=== PATIENT | female | born 1945 | race Caucasian/White ===

== ENCOUNTER 2023-02-15 12:26 | Outpatient (OUT) | payer MEDICARE, SELFPAY | END 2023-02-15 12:27 | disposition home or self-care (01) | LOC: PST 12:27 | PROVIDERS: Visit Provider Internal Medicine Cardiovascular Disease | DX: Z01.818 Encounter for other preprocedural examination (principal); I47.1 Supraventricular tachycardia ==

== ENCOUNTER 2023-02-19 11:39 | Day surgery (SDC) | payer MEDICARE, SELFPAY ==
[2023-02-19 11:51] VITALS: BP 120/79; PULSE 60; RESP 18; TEMP 36.6; O2SAT 93
[2023-02-19] MEDS: AMOXICILLIN 500 MG CAPSULE 1000 MG PO (11:57)
--- NOTE | 2023-02-19 13:13 | P.ON_ITS ---
Date of procedure: 02/19/23 Pre-op diagnosis: AF Post-op diagnosis: same as pre-op Procedure: LOOP?IMPLANT PROCEDURE NOTE DATE OF PROCEDURE: 02/19/2023 PERFORMING PHYSICIAN: Dr. Farshad Coyle INDICATIONS FOR PROCEDURE: 1. AF surveillance CONSENT: Patient LOCATION: EP Lab PROCEDURAL SEDATION: None FLUOROSCOPY TIME: 0min PREPARATION: Preoperative antibiotics was administered. PROCEDURES PERFORMED: 1.?LOOP?implant PROCEDURE NOTE: Patient was brought to the EP lab in the post absorptive state. A procedural pause was performed verifying the patient, the procedure. Sterile prep and drape were performed over the left precordium and anesthesia with 1% lidocaine was followed by a small incision was made in the 3rd intercostal space near the sternum on the left using the [employer] tool. The?loop?recorder was then injected subcutaneously and noted to have good sensing parameters. Technical details of the device as noted below. The skin was then closed with 3- 0 absorbable monofilament suture and glue applied to hold the edges together. Tegaderm was applied to cover the wound. The patient appeared to tolerate the procedure well and was returned to the room in stable condition. No complications were immediately observed. LOOP?details: Device Model: M301 Lux-Dx Serial#: [id number] Sensing is 0.19mV. IMPRESSION: Successful placement of?LOOP?implant with excellent sensing parameters. RECOMMENDATIONS: 1. Occlusive dressing to be changed after 7 days. 2. Do not wet the incision. Farshad Coyle MD Cardiac Electrophysiology Anesthesia: Local Surgeon: Farshad Coyle Estimated blood loss (mL): 5 Pathology: none sent Condition: stable Disposition: same day
[2023-02-19 13:14] VITALS: BP 127/58; PULSE 86; RESP 20; O2SAT 97
[2023-02-19 13:15] VITALS: RESP 20
[2023-02-19 13:23] VITALS: BP 123/57; PULSE 93; O2SAT 95
== END 2023-02-19 13:40 | disposition home or self-care (01) ==
PROVIDERS: PCP Family Medicine; Visit Provider Internal Medicine Cardiovascular Disease
PROC: (CPT 33285; principal; 2023-02-19 12:30)
DX: I48.91 Unspecified atrial fibrillation (principal); J43.9 Emphysema, unspecified; Z99.81 Dependence on supplemental oxygen; F17.210 Nicotine dependence, cigarettes, uncomplicated; Z79.899 Other long term (current) drug therapy
CPT/HCPCS: 33285; C1764

== ENCOUNTER 2023-05-20 15:36 | Observation (INO) | payer MEDICARE, SELFPAY ==
[2023-05-20] VITALS (34 sets, daily range): BP systolic 84–102; BP diastolic 45–80; PULSE 96–121; RESP 11–32; TEMP 37.1–38.1; O2SAT 91–98; BMI 22.7; BMI 23.3
--- NOTE | 2023-05-20 15:53 | ECG_ITS ---
The [facility] Test Date: 2023-05-20 Pat Name: TOM MCDANIELS Department: Room: - Gender: Female It Support Manager: : 1945 Requested By: MANUEL GLYNN Order Number: [id number] Reading MD: RADHA BROWN Measurements Intervals [place] Rate: 109 P: 77 MT: 94 QRS: 80 QRSD: 82 T: 67 QT: 292 QTc: 356 Interpretive Statements 1120 Sinus tachycardia 2210 Short MT interval 8305 Short QTc interval 9150 abnormal ECG No previous ECG available for comparison Electronically Signed On 05-21-2023 7:11:58 EST by RADHA BROWN
--- NOTE | 2023-05-20 15:53 | XR_ITS ---
The [address] [address] Patient Name: TOM MCDANIELS MRN: [id number] date: 1945 Sex: F Assigned Patient Location: ER Current Patient Location: ER Accession/Order Number: [id number] Exam Date: 05/20/2023 16:30 Report Date: 05/20/2023 17:00 At the request of: MARQUEZ MONTILLA Procedure: XR chest 1V EXAMINATION: XR chest 1V HISTORY: Shortness of breath COMPARISON: None. TECHNIQUE: Portable chest FINDINGS: The lung parenchyma is free of consolidation or infiltrate. No pneumothorax or pleural effusion. The cardiac, mediastinal and hilar contours are normal. The visualized osseous structures exhibit no gross abnormality. XR/XR chest 1V IMPRESSION: No acute cardiopulmonary abnormality. Electronically authenticated by: TEENA MCKEE Date: 05/20/2023 17:00
--- NOTE | 2023-05-20 16:12 | ED.SOB1 ---
HPI - SOB/Dyspnea General Chief Complaint: Shortness of Breath/Dyspnea Stated Complaint: pneumonia Time Seen by Provider: 05/20/23 15:53 Source: patient Mode of arrival: walk-in Limitations: no limitations History of Present Illness HPI Narrative: patient is a 77-year-old female who presents to the emergency department for cough, body aches, fevers, shortness of breath over the last 4-5 days. She has a history of chronic obstructive pulmonary disease. She states she has had pneumonia frequently in the past. She has had no hemoptysis, chest pain. She states she does have some soreness in the ribs with coughing. She has been eating and drinking fairly well. No vomiting or diarrhea. She denies any peripheral edema or sick contacts in the home. She has not been on any medications for her symptoms. she has a regular smoker. Related Data Home Medications Medication Instructions Recorded Confirmed albuterol 90 mcg/actuation aerosol 90 mcg inhalation .EVERY 4 HOURS 02/15/23 05/20/23 inhaler PRN SOB albuterol sulfate 90 mcg/actuation 2 puff inhalation Q4H PRN 05/20/23 05/20/23 aerosol inhaler shortness of breath or wheezing metoprolol succinate 25 mg 25 mg PO QAM 05/20/23 05/20/23 tablet,extended release 24 hr Allergies Allergy/AdvReac Type Severity Reaction Status Date / Time No Known Drug Allergies Allergy Unverified 02/15/23 11:38 Review of Systems ROS Constitutional Reports: fever and chills Ears, nose, mouth, and throat Reports: nasal congestion; Denies: throat pain Cardiovascular Denies: chest pain Respiratory Reports: shortness of breath and cough Gastrointestinal Denies: nausea or vomiting Musculoskeletal Denies: back pain Integumentary/Breast Denies: rash Neurological Denies: headache Hematologic/Lymphatic Denies: easy bruising [facility] Medical History (Updated 05/20/23 @ 18:36 by GERMÁN Crow) Asthma ?J45.909 - Unspecified asthma, uncomplicated (ICD-10) Cataracts, bilateral ?H26.9 - Unspecified cataract (ICD-10) COPD (chronic obstructive pulmonary disease) ?J44.9 - Chronic obstructive pulmonary disease, unspecified (ICD-10) O2 dependent ?Z99.81 - Dependence on supplemental oxygen (ICD-10) Pleurisy ?R09.1 - Pleurisy (ICD-10) Tachycardia ?R00.0 - Tachycardia, unspecified (ICD-10) Surgical History (Updated 02/15/23 @ 11:34 by Jennifer Laguerre RN) History of tonsillectomy ?Z90.89 - Acquired absence of other organs (ICD-10) History of tubal ligation ?Z98.51 - Tubal ligation status (ICD-10) Family History (Updated 02/15/23 @ 11:35 by Jennifer Laguerre RN) Other Family history of cancer Heart disease Social History Within the past year, how often did you have a drink containing alcohol: monthly or less Within the past year, how many standard drinks containing alcohol did you have on a typical day: 1 or 2 Total score: 0 Score interpretation: A score less than 3 is consistent with normal alcohol consumption. Smoking status: Heavy tobacco smoker Non-prescribed substance use: denies use Previous occupational history: RETIRED Known occupational exposures/hazards: No Highest level of school completed/degree received: high school graduate Exam Narrative Exam Narrative: Gen.: Awake, alert, in no distress Head: Normocephalic, atraumatic ENT: Moist mucous membranes Respiratory: No respiratory distress, lungs diminished Cardio: Regular rate and rhythm Gastrointestinal: Abdomen is soft, nondistended and nontender to palpation Extremities: Moves extremities equally Psych: Normal mood and affect Neuro: No focal neuro deficit Skin: Warm, dry, intact Constitutional Vital Signs, click to edit/add: Last Vital Signs Temp 100.5 F H 05/20/23 15:46 Pulse 102 H 05/20/23 17:40 Resp 20 05/20/23 17:40 BP 96/57 05/20/23 17:30 Pulse Ox 91 L 05/20/23 17:45 O2 Del Method Room Air 05/20/23 17:45 Course Vital Signs Vital signs: Vital Signs Temperature 100.5 F H 05/20/23 15:46 Pulse Rate 121 H 05/20/23 15:46 Respiratory Rate 24 05/20/23 15:46 Blood Pressure 95/64 05/20/23 15:46 Pulse Oximetry 94 L 05/20/23 15:46 Oxygen Delivery Method Room Air 05/20/23 15:46 Temperature 100.5 F H 05/20/23 15:46 Pulse Rate 102 H 05/20/23 17:40 Respiratory Rate 20 05/20/23 17:40 Blood Pressure 96/57 05/20/23 17:30 Pulse Oximetry 91 L 05/20/23 17:45 Oxygen Delivery Method Room Air 05/20/23 17:45 MDM - SOB/Dyspnea MDM Narrative Medical decision making narrative: patient is borderline hypoxic in the Emergency Room, placed on oxygen by nasal cannula and given an albuterol breathing treatment.Tylenol given for fever and IV fluids were started. Tachycardia has improved. Chest x-ray shows no evidence of acute cardiopulmonary changes, white blood cell count, lactic acid, Covid test and influenza test are all negative. Urine specimen is unremarkable.patient will be admitted to ICU for close monitoring. A 2nd liter of fluid, azithromycin and Rocephin were given. Blood cultures are pending. Case discussed with the hospitaliist. Medical Records Attestation: I reviewed the patient's medical records. Lab Data Attestation: I reviewed the patient's lab results. Labs: Lab Results 05/20/23 05/20/23 05/20/23 Range/Units 16:15 16:22 16:35 WBC 8.5 (4.0-11.0) 10^3/uL RBC 4.61 (4.20-5.40) 10^6/uL Hgb 14.0 (12.0-16.0) g/dL Hct 45.1 (36.0-48.0) % MCV 97.8 (81.0-99.0) fL MCH 30.4 (26.7-34.0) pg MCHC 31.0 (29.9-35.2) g/dL RDW 13.5 (11.0-15.0) % Plt Count 218 (150-450) 10^3/uL MPV 10.9 (9.5-13.5) fL Neut % (Auto) 76.9 H (43.0-75.0) % Lymph % (Auto) 11.1 L (20.5-60.0) % [place] % (Auto) 10.9 (1.7-12.0) % Eos % (Auto) 0.1 L (0.9-7.0) % Baso % (Auto) 0.4 (0.2-2.0) % Neut # (Auto) 6.5 (1.4-6.5) 10^3/uL Lymph # (Auto) 0.9 L (1.2-3.8) 10^3/uL [place] # (Auto) 0.9 H (0.3-0.8) 10^3/uL Eos # (Auto) 0.0 (0.0-0.7) 10^3/uL Baso # (Auto) 0.0 (0.0-0.1) 10^3/uL Abs Immat Gran (auto) 0.05 H (0.00-0.03) 10^3/uL Imm/Tot Granulo (auto) 0.6 H (0.0-0.5) % PT 10.3 (9.0-11.6) sec INR 0.97 APTT 24.4 (22.3-36.2) sec VBG pH 7.404 (7.330-7.430) VBG pCO2 52.4 H (40.0-52.0) mmHg Sodium 140 (136-145) mmol/L Potassium 4.2 (3.5-5.1) mmol/L Chloride 102 (98-107) mmol/L Carbon Dioxide 33.3 H (21.0-32.0) mmol/L Anion Gap 8.9 BUN 14.0 (7.0-18.0) mg/dL Creatinine 1.03 H (0.55-1.02) mg/dL Est GFR ( Amer) >60 (>=60) Est GFR (Non-Af Amer) 52 L (>=60) BUN/Creatinine Ratio 13.6 Glucose 88 (74-106) mg/dL Lactate 1.1 (0.4-2.0) mmol/L Calcium 9.4 (8.5-10.1) mg/dL Total Bilirubin 0.3 (0.2-1.0) mg/dL AST 32 (15-37) U/L ALT 49 (14-59) U/L Alkaline Phosphatase 105 (46-116) U/L Troponin I High Sens 9.2 (4.0-51.3) pg/mL NT-Pro-B Natriuret Pep 314.0 (<=1800.0) pg/mL Total Protein 8.1 (6.4-8.2) g/dL Albumin 3.3 L (3.4-5.0) g/dL Globulin 4.8 g/dL Albumin/Globulin Ratio 0.7 Procalcitonin <0.05 (0.00-0.50) ng/mL Urine Color Yellow (YELLOW) Urine Clarity Clear (CLEAR) Urine pH 5.5 (5.0-9.0) Ur Specific [place] >=1.030 A (1.005-1.025) Urine Protein Trace (NEG/TRACE) mg/dL Urine Glucose (UA) Negative (NEGATIVE) mg/dL Urine Ketones Negative (NEGATIVE) mg/dL Urine Occult Blood Trace-i (NEGATIVE) Urine Nitrite Negative (NEGATIVE) Urine Bilirubin Negative (NEGATIVE) Urine Urobilinogen 0.2 (0.2-1.0) EU/dL Ur Leukocyte Esterase Negative (NEGATIVE) Urine RBC 0-2 (0-2) #/HPF Urine WBC None seen (NONE SEEN) #/HPF Ur Squamous Epith Cells Rare (NONE/RARE) #/LPF Urine Crystals Seen A (None Seen) #/HPF Calcium Oxalate Crystal Few Urine Bacteria Trace A (NONE SEEN) #/HPF Urine Casts None seen (NONE SEEN) #/LPF Urine Mucus None seen (NONE SEEN) Ur Culture Indicated? No SARS-CoV-2 (PCR) Negative (NEGATIVE) Influenza Type A Ag Negative Influenza Type B Ag Negative Imaging Data Chest x-ray: Attestation: I have reviewed the pertinent imaging results. Radiologist's impression: Procedure: XR chest 1V EXAMINATION: XR chest 1V HISTORY: Shortness of breath COMPARISON: None. TECHNIQUE: Portable chest FINDINGS: The lung parenchyma is free of consolidation or infiltrate. No pneumothorax or pleural effusion. The cardiac, mediastinal and hilar contours are normal. The visualized osseous structures exhibit no gross abnormality. IMPRESSION: No acute cardiopulmonary abnormality. Electronically authenticated by: TEENA MCKEE Date: 05/20/2023 17:00 ECG Data Attestation: I personally reviewed and interpreted this ECG as follows: (sinus tachycardia at a rate of 109, no acute ST elevation or ectopy. EKG reviewed by attending physician) Discharge Plan Discharge Chief Complaint: Shortness of Breath/Dyspnea Patient Disposition: Admitted As Inpatient Time of Disposition Decision: 18:36 Prescriptions / Home Meds: No Action albuterol 90 mcg/actuation aerosol 90 mcg inhalation .EVERY 4 HOURS PRN (Reason: SOB) Hold Instructions: no longer available albuterol sulfate 90 mcg/actuation HFA aerosol inhaler 2 puff INHALATION Q4H PRN (Reason: shortness of breath or wheezing) metoprolol succinate 25 mg tablet extended release 24 hr 25 mg PO QAM Stand Alone Forms: Portal Instructions Referrals: Suzanne Cabral MD [Primary Care Provider] - 1 week
[2023-05-20 16:28] LABS: PCO2 VBG 52.4 mmHg (40.0-52.0); pH VBG 7.404 (7.330-7.430)
[2023-05-20 16:31] LABS: Basophils Percent Auto 0.4 % (0.2-2.0); Eosinophils Percent Auto 0.1 % (0.9-7.0); Hematocrit 45.1 % (36.0-48.0); Immature Granulocytes Abs Auto 0.05 10^3/uL (0.00-0.03); Immature Granulocytes Pct Auto 0.6 % (0.0-0.5); Lymphocytes Absolute Auto 0.9 10^3/uL (1.2-3.8); Lymphocytes Percent Auto 11.1 % (20.5-60.0); Mean Corpuscular Hemoglobin 30.4 pg (26.7-34.0); Mean Corpuscular Volume 97.8 fL (81.0-99.0); Mean Platelet Volume 10.9 fL (9.5-13.5); Monocytes Absolute Auto 0.9 10^3/uL (0.3-0.8); Monocytes Percent Auto 10.9 % (1.7-12.0); Neutrophils Absolute Auto 6.5 10^3/uL (1.4-6.5); Neutrophils Percent Auto 76.9 % (43.0-75.0); Platelet Count 218 10^3/uL (150-450); Red Blood Count 4.61 10^6/uL (4.20-5.40); Red Cell Distribution Width 13.5 % (11.0-15.0); White Blood Count 8.5 10^3/uL (4.0-11.0)
[2023-05-20] MEDS: ACETAMINOPHEN 325 MG TABLET 650 MG PO (16:33)
[2023-05-20] MEDS: 0.9 % SODIUM CHLORIDE 1,000 ML 999 ML IV (16:34)
[2023-05-20 16:43] LABS: SARS-CoV-2 Ag NEGATIVE (NEGATIVE)
--- NOTE | 2023-05-20 16:43 | PC.NURSE ---
pt reports wearing O2 at night, pulse ox on pt and will monitor
[2023-05-20 16:45] LABS: INR 0.97; Partial Thromboplastin Time 24.4 sec (22.3-36.2); Prothrombin Time 10.3 sec (9.0-11.6)
[2023-05-20 16:48] LABS: Lactate/Lactic Acid 1.1 mmol/L (0.4-2.0)
[2023-05-20 16:54] LABS: Alanine Aminotransferase 49 U/L (14-59); Albumin Globulin Ratio 0.7; Albumin Level 3.3 g/dL (3.4-5.0); Alkaline Phosphatase 105 U/L (46-116); Anion Gap 8.9; Aspartate Amino Transferase 32 U/L (15-37); BUN Creatinine Ratio 13.6; Bilirubin Total 0.3 mg/dL (0.2-1.0); Calcium 9.4 mg/dL (8.5-10.1); Carbon Dioxide 33.3 mmol/L (21.0-32.0); Chloride 102 mmol/L (98-107); Estimated GFR (African America >60 (>=60); Estimated GFR (Non-African Ame 52 (>=60); Globulin 4.8 g/dL; Glucose 88 mg/dL (74-106); Potassium 4.2 mmol/L (3.5-5.1); Sodium 140 mmol/L (136-145); Total Protein 8.1 g/dL (6.4-8.2); Troponin I High Sensitivity 9.2 pg/mL (4.0-51.3)
[2023-05-20 17:00] LABS: PROCALCITONIN <0.05 ng/mL (0.00-0.50)
[2023-05-20 17:08] LABS: Bilirubin Urine NEGATIVE (NEGATIVE); Blood Urine TRACE-I (NEGATIVE); Clarity Urine CLEAR (CLEAR); Color Urine YELLOW (YELLOW); Glucose Urine UA NEGATIVE (NEGATIVE); Ketones Urine NEGATIVE (NEGATIVE); Leukocyte Esterase Urine NEGATIVE (NEGATIVE); Nitrite Urine NEGATIVE (NEGATIVE); Protein Urine TRACE mg/dL (NEG/TRACE); Specific Gravity Urine >=1.030 (1.005-1.025); Urobilinogen Urine 0.2 EU/dL (0.2-1.0); pH Urine 5.5 (5.0-9.0)
[2023-05-20 17:16] LABS: Urine Microscopic Indicated YES
[2023-05-20 17:35] LABS: Influenza Virus A Antigen Negative; Influenza Virus B Antigen Negative; Internal Control Within Normal Limits
[2023-05-20] MEDS: ALBUTEROL SULFATE 2.5 MG/3 ML VIAL NEB IH (17:44)
[2023-05-20 17:51] LABS: Bacteria Urine TRACE #/HPF (NONE SEEN); Calcium Oxalate Crystals Urine FEW; Cast Seen? NONE SEEN #/LPF (NONE SEEN); Crystals Seen? Seen #/HPF (None Seen); Mucus Urine NONE SEEN (NONE SEEN); RBC Urine 0-2 #/HPF (0-2); Squamous Epithelial Cell Urine RARE #/LPF (NONE/RARE); Urine Culture Indicated NO; WBC Urine NONE SEEN #/HPF (NONE SEEN)
[2023-05-20] MEDS: 0.9 % SODIUM CHLORIDE 1,000 ML 1000 ML IV (18:15)
[2023-05-20] MEDS: CEFTRIAXONE 1,000 MG in 0.9 % SODIUM CHLORIDE 50 ML 100 MG IV (18:26)
[2023-05-20] MEDS: AZITHROMYCIN 500 MG in 0.9 % SODIUM CHLORIDE 250 ML 250 MG IV (19:02)
--- NOTE | 2023-05-20 21:21 | P.PN_ITS ---
Progress Note: Subjective Subjective Interval history: Chief Complaint:: Fever, shortness of breath, cough with purulent sputum History of Present Illness:: This is a 77 years old female with known history of COPD who presents with above complaints. Patient stating that she did not feel well for a few days. She denies any sick/ill contacts. Evaluation in the emergency room revealed unremarkable chest x-ray, auscultatory wheezing. Patient did require oxygen initially. Rapid test for COVID-19, influenza, RSV has been negative. Patient blood pressure has been low on presentation to emergency room, but she responded to IV fluid resuscitation. Admitted for further evaluation and treatment. Currently feeling better after the initial treatment in the emergency room Exam Narrative Exam Narrative: ROS: 1.General: no fever, chills, not in distress 2.HEENT: no YOUNGER, no blurry vision, no swallow problems, no nasal congestion, no sore throat 3.Pulmonary: See above 4.CVS: no CP, no palpitations, no WINKELR, no SOB, no intermittent claudication 5.GI: no nausea, vomiting or diarrhea, no abdominal pain, no constipation, no hematemesis or hematochezia 6.: no renal colic, no hematuria, urinary frequency or urgency 7.Extremities: no edema 8.Neurological: no dizziness, vertigo, double or blurry vision, no no focal weakness, no paresthesia, no swallow or speech problems 9.Musculosceletal: no joint pains, no joint swelling, no back pain 10.Dermatological: no skin rashes, no lesions, no pruritus 11.Hematological: no bleeding, no hx/o clots 12.Endocrinological: no heat/cold intolerance, no hx/o diabetes 13.Psychiatric: no suicidal or homicidal thoughts Physical Exam: Not in distress, pleasant, lucid, cooperative, Head - atraumatic, eyes - pupils equal, round, reactive to light, extra ocular movement intact, MMM Neck - supple, thyroid not enlarged, LN not palpated Lungs -coarse resting bilaterally, wheezing CVS - heart sounds S1, S2, no additional murmurs gallop, regular rate and rhythm Gastrointestinal?abdomen is soft, non-tender, non-distended, no organomegaly, positive bowel sounds Extremities no clubbing, cyanosis or edema Neurological?cranial nerve II?XII grossly intact, no meningeal signs, no cerebellar signs, no sensory deficit Musculoskeletal - joints, no effusions, ROM preserved Dermatological - the skin dry, warm, no rashes Psychiatric?patient is AAO X3, patient has normal affect Constitutional Vital Signs, click to edit/add: Last Vital Signs Temp 98.9 F 05/20/23 19:50 Pulse 112 H 05/20/23 19:58 Resp 24 05/20/23 19:58 BP 94/61 05/20/23 19:50 Pulse Ox 96 05/20/23 19:58 O2 Del Method Nasal Cannula 05/20/23 19:58 O2 Flow Rate 2 05/20/23 19:58 Progress Note: Objective Labs Labs: Short CBC 05/20/23 Range/Units 16:15 WBC 8.5 (4.0-11.0) 10^3/uL Hgb 14.0 (12.0-16.0) g/dL Hct 45.1 (36.0-48.0) % Plt Count 218 (150-450) 10^3/uL BMP 05/20/23 16:15 Sodium 140 Potassium 4.2 Chloride 102 Carbon Dioxide 33.3 H BUN 14.0 Creatinine 1.03 H Glucose 88 Calcium 9.4 Liver Function 05/20/23 Range/Units 16:15 Total Bilirubin 0.3 (0.2-1.0) mg/dL AST 32 (15-37) U/L ALT 49 (14-59) U/L Alkaline Phosphatase 105 (46-116) U/L Albumin 3.3 L (3.4-5.0) g/dL Urine 05/20/23 Range/Units 16:35 Urine Color Yellow (YELLOW) Urine Clarity Clear (CLEAR) Urine pH 5.5 (5.0-9.0) Ur Specific [place] >=1.030 A (1.005-1.025) Urine Protein Trace (NEG/TRACE) mg/dL Urine Glucose (UA) Negative (NEGATIVE) mg/dL Progress Note: A&P Assessment and Plan (1) COPD exacerbation: Assessment and Plan: COPD exacerbation with respiratory failure combined hypoxemic and hypercapnia - admit to intensive care unit providing low blood pressure initially - O2 supplementation - RT assessment - inhaled and systemic steroids - inhaled bronchodilators - will order sputum Cx and Gramm stain - empiric, broad spectrum ABxs - probiotics while on ABXs - F/U Cxs - tailor ABxs accordingly - if no improvement - consider and ABG evaluation and consultation with Hazmat Technician (2) SIRS (systemic inflammatory response syndrome): Assessment and Plan: ? Most probably related to above. Initial work-up has been negative for any source of infection (3) Shortness of breath: Assessment and Plan: Improving with the breathing treatment and oxygen Plan END: As the provider for the telehealth service, I attest that I introduced myself to the patient, provided my credentials, disclosed by location and determined that based on a review of the patient's chart and discussion with members of the patient's treatment team, telemedicine via real-time, 2 way, and interactive audio and video platform is an appropriate and effective means of providing the service. ?The patient and I mutually agree this visit is appropriate for telemedicine. ?[place] ?The encounter took approximately 35 minutes. ?The nurse was present during the entire time and I was able to move the stethoscope in appropriate directions. ?The patient was evaluated at the Hospital ? Portions of this note may be dictated using [employer] voice recognition software. Variances in spelling and vocabulary are possible and unintentional. Not all errors may be caught and/or corrected. Please notify the author if any discrepancies are noted and/or if the meaning of any statement is unclear.? ? Patient verbally consented for treatment via video visit with patient currently located at the [facility] and provider located in [place]. Telemedicine Attestation Telemedicine Attestation I conducted this encounter from [[place]] via secure live, [id number] video conference with the patient, located at [facility] with [COPD exacerbation]. Prior to the interview, the risks and benefits of telemedicine were discussed with the patient and verbal consent was obtained.
[2023-05-20] MEDS: MONTELUKAST SODIUM 10 MG TABLET PO (22:15)
[2023-05-20] MEDS: METHYLPREDNISOLONE SOD SUCC PF 40 MG/ML VIAL IVP (22:15)
[2023-05-20] MEDS: 0.9 % SODIUM CHLORIDE 1,000 ML 100 ML IV (22:15)
[2023-05-20] MEDS: BUDESONIDE 0.5 MG/2 ML AMPULE NEB IH (22:49)
[2023-05-20] MEDS: IPRATROPIUM/ALBUTEROL SULFATE 3 ML AMPUL.NEB IH (22:50)
[2023-05-21] VITALS (74 sets, daily range): BP systolic 99–106; BP diastolic 58–59; PULSE 81–117; RESP 11–34; TEMP 36.3–36.6; O2SAT 85–97
[2023-05-21] MEDS: IPRATROPIUM/ALBUTEROL SULFATE 3 ML AMPUL.NEB IH (04:01)
[2023-05-21 05:45] LABS: Basophils Percent Auto 0.3 % (0.2-2.0); Hematocrit 35.3 % (36.0-48.0); Hemoglobin 10.8 g/dL (12.0-16.0); Immature Granulocytes Abs Auto 0.05 10^3/uL (0.00-0.03); Immature Granulocytes Pct Auto 0.8 % (0.0-0.5); Lymphocytes Absolute Auto 0.3 10^3/uL (1.2-3.8); Lymphocytes Percent Auto 4.7 % (20.5-60.0); Mean Corpuscular HGB Conc 30.6 g/dL (29.9-35.2); Mean Corpuscular Hemoglobin 30.3 pg (26.7-34.0); Mean Corpuscular Volume 99.2 fL (81.0-99.0); Monocytes Absolute Auto 0.3 10^3/uL (0.3-0.8); Monocytes Percent Auto 4.7 % (1.7-12.0); Neutrophils Absolute Auto 5.9 10^3/uL (1.4-6.5); Neutrophils Percent Auto 89.5 % (43.0-75.0); Platelet Count 164 10^3/uL (150-450); Red Blood Count 3.56 10^6/uL (4.20-5.40); Red Cell Distribution Width 13.6 % (11.0-15.0); White Blood Count 6.6 10^3/uL (4.0-11.0)
[2023-05-21] MEDS: METHYLPREDNISOLONE SOD SUCC PF 40 MG/ML VIAL IVP (06:13)
[2023-05-21 06:14] LABS: Alanine Aminotransferase 36 U/L (14-59); Albumin Globulin Ratio 0.6; Albumin Level 2.4 g/dL (3.4-5.0); Alkaline Phosphatase 79 U/L (46-116); Anion Gap 10.3; Aspartate Amino Transferase 25 U/L (15-37); BUN Creatinine Ratio 9.4; Bilirubin Total 0.1 mg/dL (0.2-1.0); Calcium 8.6 mg/dL (8.5-10.1); Carbon Dioxide 27.7 mmol/L (21.0-32.0); Chloride 108 mmol/L (98-107); Estimated GFR (African America 55 (>=60); Estimated GFR (Non-African Ame 45 (>=60); Globulin 3.8 g/dL; Glucose 251 mg/dL (74-106); Sodium 142 mmol/L (136-145); Total Protein 6.2 g/dL (6.4-8.2)
[2023-05-21] MEDS: METOPROLOL SUCCINATE 25 MG TAB.ER.24H PO (08:02)
--- NOTE | 2023-05-21 08:29 | PM.HP ---
H&P: HPI History of Present Illness Chief complaint: pneumonia Narrative: patient is a 77-year-old female with past medical history of chronic obstructive pulmonary disease, tobacco abuse, paroxysmal atrial fibrillation with loop recorder who presented to the Emergency Room yesterday evening with a five day history of body aches, dry cough, fevers, and increased shortness of breath. She denies any sick contacts and states that she has her albuterol that she's been using as needed. She follows closely with her primary care physician and also has a parimutuel clerk that she sees occasionally. At the time of exam this morning patient has no complaints and states that she feels much better from treatment provided in the emergency department. She has received some breathing treatments and IV fluids steroids and antibiotics. She notes improved shortness of breath no fevers overnight, no nausea vomiting or diarrhea. Patient wishes to go home today. Review of Systems ROS Narrative ROS: a complete review of systems were reviewed with patient and are positive as below or listed in History of Chief Complaint. General: no fever, chills, night sweats Head: no headache, trauma, visual changes, nausea or vomiting Skin: no reported rashes, itching or sores Eyes: no blurriness of vision Ears: no reported hearing loss, vertigo, earache, or tinnitus Throat: no sore throat, hoarseness, swelling of neck, or tongue pain Heart: no chest pain Lungs: some shortness of breath and dry cough GI: no diarrhea or vomiting/nausea Urinary: no urinary urgency, frequency or pain Neuro: no numbness or tingling HEM: no bleeding issues or bruising ENDO: no thyroid problems Psych: no anxiety or depression [facility] Medical History (Updated 05/20/23 @ 18:36 by GERMÁN Crow) Asthma ?J45.909 - Unspecified asthma, uncomplicated (ICD-10) Cataracts, bilateral ?H26.9 - Unspecified cataract (ICD-10) COPD (chronic obstructive pulmonary disease) ?J44.9 - Chronic obstructive pulmonary disease, unspecified (ICD-10) O2 dependent ?Z99.81 - Dependence on supplemental oxygen (ICD-10) Pleurisy ?R09.1 - Pleurisy (ICD-10) Tachycardia ?R00.0 - Tachycardia, unspecified (ICD-10) Surgical History History of tonsillectomy ?Z90.89 - Acquired absence of other organs (ICD-10) History of tubal ligation ?Z98.51 - Tubal ligation status (ICD-10) Family History Other Family history of cancer Heart disease Social History Within the past year, how often did you have a drink containing alcohol: monthly or less Within the past year, how many standard drinks containing alcohol did you have on a typical day: 1 or 2 Total score: 0 Score interpretation: A score less than 3 is consistent with normal alcohol consumption. Smoking status: Heavy tobacco smoker Non-prescribed substance use: denies use Previous occupational history: RETIRED Known occupational exposures/hazards: No Highest level of school completed/degree received: high school graduate Meds Home Medications and Allergies Home Medications Medication Instructions Recorded Confirmed Type albuterol 90 mcg/actuation aerosol 90 mcg inhalation .EVERY 4 HOURS 02/15/23 05/20/23 History inhaler PRN SOB albuterol sulfate 90 mcg/actuation 2 puff inhalation Q4H PRN 05/20/23 05/20/23 History aerosol inhaler shortness of breath or wheezing metoprolol succinate 25 mg 25 mg PO QAM 05/20/23 05/20/23 History tablet,extended release 24 hr Allergies Allergy/AdvReac Type Severity Reaction Status Date / Time No Known Drug Allergies Allergy Unverified 02/15/23 11:38 Exam Narrative Exam Narrative: General: Patient is alert, and oriented to person, place and time with normal affect, proper hygiene Skin: no visible rashes, or ulcers Head: atraumatic, acephalic Eyes: PERRLA, no nystagmus present, conjunctiva clear, no scleral icterus Ears: normal gross auditory acuity Nose: symmetric, no discharge, no maxillary or frontal sinus tenderness Mouth/Throat: no erythema, exudate, or tonsillar enlargement, normal dentition Neck: no masses palpated, normal thyroid, no JVD or audible carotid bruits Heart: Normal rate and rhythm, no murmurs/rubs/gallops Lungs: no audible wheezes, crackles and slightly diminished breath sounds in base of lung barnes Abdomen: Normal audible bowel sounds, no distension, No palpable masses, no organomegaly, no rebound/guarding/ or rigidity Musculoskeletal: no swelling bilateral lower extremities Neuro: CN II-X grossly intact Constitutional Vital Signs, click to edit/add: Last Vital Signs Temp 97.4 F L 05/21/23 07:31 Pulse 100 H 05/21/23 08:00 Resp 27 H 05/21/23 08:00 BP 99/58 05/21/23 07:13 Pulse Ox 87 L 05/21/23 07:13 O2 Del Method Nasal Cannula 05/21/23 07:31 O2 Flow Rate 2 05/21/23 07:31 Results Labs Labs: Short CBC 05/20/23 05/21/23 Range/Units 16:15 05:30 WBC 8.5 6.6 (4.0-11.0) 10^3/uL Hgb 14.0 10.8 L (12.0-16.0) g/dL Hct 45.1 35.3 L (36.0-48.0) % Plt Count 218 164 (150-450) 10^3/uL BMP 05/20/23 05/21/23 16:15 05:30 Sodium 140 142 Potassium 4.2 4.0 Chloride 102 108 H Carbon Dioxide 33.3 H 27.7 BUN 14.0 11.0 Creatinine 1.03 H 1.17 H Glucose 88 251 H Calcium 9.4 8.6 Liver Function 05/20/23 05/21/23 Range/Units 16:15 05:30 Total Bilirubin 0.3 0.1 L (0.2-1.0) mg/dL AST 32 25 (15-37) U/L ALT 49 36 (14-59) U/L Alkaline Phosphatase 105 79 (46-116) U/L Albumin 3.3 L 2.4 L (3.4-5.0) g/dL Urine 05/20/23 Range/Units 16:35 Urine Color Yellow (YELLOW) Urine Clarity Clear (CLEAR) Urine pH 5.5 (5.0-9.0) Ur Specific [place] >=1.030 A (1.005-1.025) Urine Protein Trace (NEG/TRACE) mg/dL Urine Glucose (UA) Negative (NEGATIVE) mg/dL ABG ABG results: 05/20/23 16:15 VBG pH 7.404 VBG pCO2 52.4 H Assessment and Plan Assessment and Plan (1) COPD exacerbation: Assessment and Plan: chest x-ray showed no acute processes, white blood cell count was normal. Patient's oxygen saturation has been greater than ninety percent on room air overnight. She seemed to do well with IV fluids and breathing treatments overnight. She has recovered faster than anticipated and will be discharged home later today with close follow-up from her primary care physician. Patient will be placed on prednisone 40 mg daily ?7 days, and a azithromycin for four more days. She is to return to the Emergency Room with any worsening signs or symptoms. She also notes she has a albuterol inhaler at home and can use it as needed. So encouraged to stop smoking (2) SIRS (systemic inflammatory response syndrome): Assessment and Plan: normal white blood cell count, normal lactate level, blood pressure has been on the lower and by feel this is chronic, no signs of sepsis or SIRS. Afebrile. (3) Shortness of breath: Assessment and Plan: secondary to chronic obstructive pulmonary disease exacerbation, normal oxygen saturation on room air Plan patient is full code Lovenox for deep vein thrombosis prophylaxis Patient is in observation status and will be discharged home later today. Patient has recovered quicker than anticipated.
[2023-05-21 10:06] LABS: SARS-CoV-2 NAA NOT DETECTED (NOT DETECTE)
--- NOTE | 2023-05-21 10:23 | CM.NOTE ---
Rounds made with jaswinder Magallanse for discharge to home today.
--- NOTE | 2023-05-21 10:32 | PM.DS1 ---
DS: Providers Provider Date of admission: 05/20/23 19:28 Primary care physician: Suzanne Cabral MD Admitting clinician: Alok Piña Sister Attending physician on discharge: Iesha Coe DS: Diagnosis Discharge Diagnosis (1) COPD exacerbation: (2) SIRS (systemic inflammatory response syndrome): (3) Shortness of breath: DS: Summary Hospital Course Hospital Course: patient is a 77-year-old female with past medical history of chronic obstructive pulmonary disease, tobacco abuse, paroxysmal atrial fibrillation with loop recorder who presented to the Emergency Room yesterday evening with a five day history of body aches, dry cough, fevers, and increased shortness of breath. Chest x-ray showed no acute processes, white blood cell count was normal, ProBNP normal and no signs of heart failure, troponin normal. Patient's oxygen saturation has been greater than ninety percent on room air overnight. She seemed to do well with IV fluids and breathing treatments overnight. She has recovered faster than anticipated and will be discharged home later today with close follow-up from her primary care physician. Patient will be placed on prednisone 40 mg daily ?7 days, and a azithromycin for four more days. She is to return to the Emergency Room with any worsening signs or symptoms. She also notes she has a albuterol inhaler at home and can use it as needed. Also encouraged to stop smoking Status at Discharge Functional status at discharge: independent ambulation Overall status at discharge: patient is back to baseline Time Spent with Patient Time attestation: Total time spent providing and/or coordinating discharge services: Time spent: less than 30 minutes Exam Narrative Exam Narrative: no change in discharge exam from the exam listed on the H and P dated 05/21/23 Constitutional Vital Signs, click to edit/add: Last Vital Signs Temp 97.4 F L 05/21/23 07:31 Pulse 92 H 05/21/23 09:39 Resp 22 05/21/23 08:20 BP 99/58 05/21/23 07:13 Pulse Ox 90 L 05/21/23 08:36 O2 Del Method Room Air 05/21/23 08:36 O2 Flow Rate 2 05/21/23 07:31 DS: Data Data Completed and Pending Labs on day of discharge: Labs from last 24 hours 05/21/23 05/20/23 05/20/23 05:30 16:35 16:22 WBC 6.6 RBC 3.56 L Hgb 10.8 L Hct 35.3 L MCV 99.2 H MCH 30.3 MCHC 30.6 RDW 13.6 Plt Count 164 MPV 11.0 Neut % (Auto) 89.5 H Lymph % (Auto) 4.7 L [place] % (Auto) 4.7 Eos % (Auto) 0.0 L Baso % (Auto) 0.3 Neut # (Auto) 5.9 Lymph # (Auto) 0.3 L [place] # (Auto) 0.3 Eos # (Auto) 0.0 Baso # (Auto) 0.0 Abs Immat Gran (auto) 0.05 H Imm/Tot Granulo (auto) 0.8 H PT INR APTT VBG pH VBG pCO2 Sodium 142 Potassium 4.0 Chloride 108 H Carbon Dioxide 27.7 Anion Gap 10.3 BUN 11.0 Creatinine 1.17 H Est GFR ( Amer) 55 L Est GFR (Non-Af Amer) 45 L BUN/Creatinine Ratio 9.4 Glucose 251 H Lactate Calcium 8.6 Total Bilirubin 0.1 L AST 25 ALT 36 Alkaline Phosphatase 79 Troponin I High Sens NT-Pro-B Natriuret Pep 780.0 Total Protein 6.2 L Albumin 2.4 L Globulin 3.8 Albumin/Globulin Ratio 0.6 Procalcitonin Urine Color Yellow Urine Clarity Clear Urine pH 5.5 Ur Specific [place] >=1.030 A Urine Protein Trace Urine Glucose (UA) Negative Urine Ketones Negative Urine Occult Blood Trace-i Urine Nitrite Negative Urine Bilirubin Negative Urine Urobilinogen 0.2 Ur Leukocyte Esterase Negative Urine RBC 0-2 Urine WBC None seen Ur Squamous Epith Cells Rare Urine Crystals Seen A Calcium Oxalate Crystal Few Urine Bacteria Trace A Urine Casts None seen Urine Mucus None seen Ur Culture Indicated? No SARS-CoV-2 (PCR) Negative Influenza Type A Ag Negative Influenza Type B Ag Negative SARS-CoV-2 RNA (YESSY) Not detected 05/20/23 16:15 WBC 8.5 RBC 4.61 Hgb 14.0 Hct 45.1 MCV 97.8 MCH 30.4 MCHC 31.0 RDW 13.5 Plt Count 218 MPV 10.9 Neut % (Auto) 76.9 H Lymph % (Auto) 11.1 L [place] % (Auto) 10.9 Eos % (Auto) 0.1 L Baso % (Auto) 0.4 Neut # (Auto) 6.5 Lymph # (Auto) 0.9 L [place] # (Auto) 0.9 H Eos # (Auto) 0.0 Baso # (Auto) 0.0 Abs Immat Gran (auto) 0.05 H Imm/Tot Granulo (auto) 0.6 H PT 10.3 INR 0.97 APTT 24.4 VBG pH 7.404 VBG pCO2 52.4 H Sodium 140 Potassium 4.2 Chloride 102 Carbon Dioxide 33.3 H Anion Gap 8.9 BUN 14.0 Creatinine 1.03 H Est GFR ( Amer) >60 Est GFR (Non-Af Amer) 52 L BUN/Creatinine Ratio 13.6 Glucose 88 Lactate 1.1 Calcium 9.4 Total Bilirubin 0.3 AST 32 ALT 49 Alkaline Phosphatase 105 Troponin I High Sens 9.2 NT-Pro-B Natriuret Pep 314.0 Total Protein 8.1 Albumin 3.3 L Globulin 4.8 Albumin/Globulin Ratio 0.7 Procalcitonin <0.05 Urine Color Urine Clarity Urine pH Ur Specific [place] Urine Protein Urine Glucose (UA) Urine Ketones Urine Occult Blood Urine Nitrite Urine Bilirubin Urine Urobilinogen Ur Leukocyte Esterase Urine RBC Urine WBC Ur Squamous Epith Cells Urine Crystals Calcium Oxalate Crystal Urine Bacteria Urine Casts Urine Mucus Ur Culture Indicated? SARS-CoV-2 (PCR) Influenza Type A Ag Influenza Type B Ag SARS-CoV-2 RNA (YESSY) Discharge Plan Discharge Disposition: Home, Self-Care Condition: Fair Discharge Medications: New prednisone 20 mg tablet 20 mg PO BID 7 Days Qty: 14 0RF azithromycin [Zithromax] 250 mg tablet 250 mg PO DAILY 4 Days Qty: 4 0RF Continued albuterol 90 mcg/actuation aerosol 90 mcg inhalation .EVERY 4 HOURS PRN (Reason: SOB) Hold Instructions: no longer available albuterol sulfate 90 mcg/actuation HFA aerosol inhaler 2 puff INHALATION Q4H PRN (Reason: shortness of breath or wheezing) metoprolol succinate 25 mg tablet extended release 24 hr 25 mg PO QAM Activity: increase activity as tolerated Diet: advance to your usual diet Forms: Portal Instructions Follow Up Appointments: Dr Cabral- May 23 at 10:30 AM
== END 2023-05-21 11:15 | disposition home or self-care (01) ==
LOC: ER 18:36 → ICU 21:13
PROVIDERS: Physician Assistant; Admitting Provider Internal Medicine; Emergency Provider Emergency Medicine; PCP Family Medicine; Visit Provider Family Medicine
DX: J44.1 Chronic obstructive pulmonary disease with (acute) exacerbation (principal); R65.10 Systemic inflammatory response syndrome (SIRS) of non-infectious origin without acute organ dysfunction; I48.0 Paroxysmal atrial fibrillation; Z79.899 Other long term (current) drug therapy; R06.02 Shortness of breath; F17.210 Nicotine dependence, cigarettes, uncomplicated; Z98.51 Tubal ligation status; Z90.89 Acquired absence of other organs; Z20.822 Contact with and (suspected) exposure to COVID-19; Z95.818 Presence of other cardiac implants and grafts
CPT/HCPCS: 36415; 71045; 80053; 81001; 82800; 83605; 83880; 84145; 84484; 85025; 85610; 85730; 87040; 87070; 87205; 87635; 87804; 87811; 93005; 94640; 94761; 96365; 96367; 96375; 96376; 99285; G0378; J0456; J2920

== ENCOUNTER 2023-06-13 13:39 | Outpatient (OUT) | payer MEDICARE, SELFPAY ==
--- NOTE | 2023-06-13 13:43 | CT_ITS ---
[address] [address] Patient Name: TOM MCDANIELS MRN: [id number] date: 1945 Sex: F Assigned Patient Location: CT Current Patient Location: CT Accession/Order Number: [id number] Exam Date: 06/13/2023 14:05 Report Date: 06/13/2023 23:36 At the request of: ARNIE JACOBS Procedure: CT lung screening low-dose EXAMINATION: CT lung screening low-dose HISTORY: Nicotine Dependence F17.219 COMPARISON: CT LUNG CANCER SCREENING 06/12/2022 TECHNIQUE: Axial, Coronal, and Sagittal images were created without the administration of IV contrast material. Dose reduction techniques were achieved by using automated exposure control and/or adjustment of mA and/or kV according to patient size and/or use of iterative reconstruction technique. FINDINGS: LUNGS: Several tiny 3 mm nodules versus new infiltrates within posterior lateral aspect of right middle lobe. New 4 mm infiltrate versus nodular opacity within lateral left upper lobe just above level of hilum. Scattered areas of mild scarring. Mild atelectasis versus infiltrates versus tiny nodular opacities within posterior right costophrenic angle. PLEURA: No mass, effusion, or pneumothorax. VASCULATURE: No abnormality. GILSON: No mass or pathologic adenopathy. MEDIASTINUM: No mass or pathologic adenopathy. CARDIAC: No enlargement, pericardial thickening, or significant calcification. AORTA: No aneurysm or dissection. CHEST WALL: No mass or axillary adenopathy BONES: No bone lesion or fracture. LIMITED ABDOMEN: No suspicious findings. Limited images of the upper abdomen. OTHER: Negative. CT/CT lung screening low-dose IMPRESSION: 1. Lung-RADS Category 3- Probably benign. Probably benign finding(s)- short term follow up suggested; includes nodules with a low likelihood of becoming a clinically active cancer. Six month LDCT. Electronically authenticated by: JOSE ROBERTO JOSEPH Date: 06/13/2023 23:36
== END 2023-06-13 13:40 | disposition home or self-care (01) ==
LOC: CT 13:39
PROVIDERS: PCP Family Medicine; Visit Provider Internal Medicine
DX: F17.219 Nicotine dependence, cigarettes, with unspecified nicotine-induced disorders (principal)
CPT/HCPCS: 71271

== ENCOUNTER 2023-10-22 15:05 | Inpatient (IN) | payer MEDICARE, SELFPAY ==
[2023-10-22] VITALS (25 sets, daily range): BP systolic 90–141; BP diastolic 52–81; PULSE 90–124; TEMP 36.4–38.7; O2SAT 87–100; BMI 22.1; BMI 22.2
--- NOTE | 2023-10-22 15:14 | XR_ITS ---
The [address] [address] Patient Name: TOM MCDANIELS MRN: [id number] date: 1945 Sex: F Assigned Patient Location: ER Current Patient Location: ER Accession/Order Number: [id number] Exam Date: 10/22/2023 15:25 Report Date: 10/22/2023 15:43 At the request of: MARQUEZ MONTILLA Procedure: XR chest 1V EXAMINATION: XR chest 1V HISTORY: Cough COMPARISON: 05/20/2023 TECHNIQUE: AP portable erect FINDINGS: LUNGS: Minimal right basilar infiltrate with an ill-defined right lateral hemidiaphragm. The left lung is clear VASCULATURE: No increased pulmonary vasculature. PLEURA: No pneumothorax, effusion, or pleural thickening. CARDIAC: No cardiomegaly or cardiac silhouette abnormality. MEDIASTINUM: No visible mass or adenopathy. BONES: No fracture or visible bone lesion. OTHER: Negative. XR/XR chest 1V IMPRESSION: Minimal right basilar infiltrate Electronically authenticated by: TEENA FIELDS Date: 10/22/2023 15:43
--- NOTE | 2023-10-22 15:14 | ECG_ITS ---
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
--- NOTE | 2023-10-22 15:19 | ED_ITS ---
HPI - URI/Sore Throat General Chief Complaint: Upper Respiratory Infection Stated Complaint: URTI Time Seen by Provider: 10/22/23 15:05 Source: patient Limitations: no limitations History of Present Illness HPI Narrative: Patient is a 77-year-old female with a history of COPD who presents to the emergency department for flulike illness over the last week. She reports fevers, chills, body aches. She has had cough and congestion. No vomiting or diarrhea. She denies chest pain. No sick contacts, leg swelling. She has had no significant sputum production. She states she feels generally achy and unwell. She has not needed her albuterol inhaler today. She denies any recent antibiotics or steroids. No medications taken prior to arrival. Patient is concerned she may have pneumonia. Tmax at home last week was 101.0 Fahrenheit. Related Data Home Medications ?Medication ?Instructions ?Recorded ?Confirmed albuterol 90 mcg/actuation aerosol 90 mcg inhalation .EVERY 4 HOURS 02/15/23 10/22/23 inhaler PRN SOB albuterol sulfate 90 mcg/actuation 2 puff inhalation Q4H PRN 05/20/23 10/22/23 aerosol inhaler shortness of breath or wheezing metoprolol succinate 25 mg 25 mg PO QAM 05/20/23 10/22/23 tablet,extended release 24 hr Allergies Allergy/AdvReac Type Severity Reaction Status Date / Time No Known Drug Allergies Allergy Unverified 02/15/23 11:38 Review of Systems ROS Constitutional Reports: fever and chills Ears, nose, mouth, and throat Reports: nasal congestion; Denies: throat pain Cardiovascular Denies: chest pain Respiratory Reports: shortness of breath and cough Gastrointestinal Denies: nausea or vomiting Musculoskeletal Denies: back pain or neck pain Integumentary/Breast Denies: rash Neurological Denies: headache Hematologic/Lymphatic Denies: easy bruising or easy bleeding [facility] Medical History (Updated 10/22/23 @ 16:06 by GERMÁN Crow) Cataracts, bilateral ?H26.9 - Unspecified cataract (ICD-10) O2 dependent ?Z99.81 - Dependence on supplemental oxygen (ICD-10) Tachycardia ?R00.0 - Tachycardia, unspecified (ICD-10) Pleurisy ?R09.1 - Pleurisy (ICD-10) COPD (chronic obstructive pulmonary disease) ?J44.9 - Chronic obstructive pulmonary disease, unspecified (ICD-10) Asthma ?J45.909 - Unspecified asthma, uncomplicated (ICD-10) Surgical History History of tonsillectomy ?Z90.89 - Acquired absence of other organs (ICD-10) History of tubal ligation ?Z98.51 - Tubal ligation status (ICD-10) Family History Other Family history of cancer Heart disease Social History Within the past year, how often did you have a drink containing alcohol: monthly or less Within the past year, how many standard drinks containing alcohol did you have on a typical day: 1 or 2 Total score: 0 Score interpretation: A score less than 3 is consistent with normal alcohol consumption. Smoking status: Heavy tobacco smoker Non-prescribed substance use: denies use Previous occupational history: RETIRED Known occupational exposures/hazards: No Highest level of school completed/degree received: high school graduate Exam Narrative Exam Narrative: Gen.: Awake, alert, in no distress Head: Normocephalic, atraumatic ENT: Moist mucous membranes Respiratory: No respiratory distress, lungs clear bilaterally Cardio: Regular rate and rhythm, tachycardic Extremities: Moves extremities equally, no pedal edema Psych: Normal mood and affect Neuro: No focal neuro deficit Skin: Warm, dry, intact Constitutional Vital Signs, click to edit/add: Last Vital Signs Temp 101.6 F H 10/22/23 15:24 Pulse 113 H 10/22/23 15:47 Resp 18 10/22/23 15:37 BP 141/81 10/22/23 15:08 Pulse Ox 93 L 10/22/23 15:47 O2 Del Method Room Air 10/22/23 15:47 Course Vital Signs Vital signs: Vital Signs Temperature 99.0 F 10/22/23 15:08 Pulse Rate 116 H 10/22/23 15:08 Respiratory Rate 18 10/22/23 15:08 Blood Pressure 141/81 10/22/23 15:08 Pulse Oximetry 100 10/22/23 15:08 Oxygen Delivery Method Room Air 10/22/23 15:08 Temperature 101.6 F H 10/22/23 15:24 Pulse Rate 113 H 10/22/23 15:47 Respiratory Rate 18 10/22/23 15:37 Blood Pressure 141/81 10/22/23 15:08 Pulse Oximetry 93 L 10/22/23 15:47 Oxygen Delivery Method Room Air 10/22/23 15:47 MDM - URI/Sore Throat MDM Narrative Medical decision making narrative: Patient treated with IV fluids, Toradol and Tylenol given for fever and bodyaches. Solu-Medrol and breathing treatment given for COPD in light of upper respiratory illness. Lab studies are unremarkable, blood cultures and sepsis orders were obtained based on the patient's vital signs. She has pulse oximetry 92 to 93% on room air and feels generally unwell, she remains tachycardic. Based on clinical presentation and minimal right lower lobe infiltrate noted on chest x-ray, we will treat for COPD, pneumonia with sepsis. Respiratory panel was added and blood cultures are pending. Azithromycin and Rocephin given for community-acquired pneumonia coverage and the patient is admitted to hospitalist service for further evaluation and treatment. Medical Records Attestation: I reviewed the patient's medical records. Lab Data Attestation: I reviewed the patient's lab results. Labs: Lab Results 10/22/23 10/22/23 Range/Units 15:20 15:22 WBC 8.8 (4.0-11.0) 10^3/uL RBC 4.46 (4.20-5.40) 10^6/uL Hgb 13.1 (12.0-16.0) g/dL Hct 42.0 (36.0-48.0) % MCV 94.2 (81.0-99.0) fL MCH 29.4 (26.7-34.0) pg MCHC 31.2 (29.9-35.2) g/dL RDW 13.7 (11.0-15.0) % Plt Count 247 (150-450) 10^3/uL MPV 10.4 (9.5-13.5) fL Neut % (Auto) 78.6 H (43.0-75.0) % Lymph % (Auto) 10.6 L (20.5-60.0) % [place] % (Auto) 9.7 (1.7-12.0) % Eos % (Auto) 0.3 L (0.9-7.0) % Baso % (Auto) 0.5 (0.2-2.0) % Neut # (Auto) 6.9 H (1.4-6.5) 10^3/uL Lymph # (Auto) 0.9 L (1.2-3.8) 10^3/uL [place] # (Auto) 0.9 H (0.3-0.8) 10^3/uL Eos # (Auto) 0.0 (0.0-0.7) 10^3/uL Baso # (Auto) 0.0 (0.0-0.1) 10^3/uL Abs Immat Gran (auto) 0.03 (0.00-0.03) 10^3/uL Imm/Tot Granulo (auto) 0.3 (0.0-0.5) % VBG pH 7.414 (7.330-7.430) VBG pCO2 52.7 H (40.0-52.0) mmHg Sodium 140 (136-145) mmol/L Potassium 4.3 (3.5-5.1) mmol/L Chloride 100 (98-107) mmol/L Carbon Dioxide 33.0 H (21.0-32.0) mmol/L Anion Gap 11.3 BUN 9.0 (7.0-18.0) mg/dL Creatinine 0.99 (0.55-1.02) mg/dL Est GFR ( Amer) >60 (>=60) Est GFR (Non-Af Amer) 55 L (>=60) BUN/Creatinine Ratio 9.1 Glucose 89 (74-106) mg/dL Lactate 1.4 (0.4-2.0) mmol/L Calcium 10.0 (8.5-10.1) mg/dL Total Bilirubin 0.4 (0.2-1.0) mg/dL AST 24 (15-37) U/L ALT 29 (14-59) U/L Alkaline Phosphatase 125 H (46-116) U/L Troponin I High Sens <4.0 L (4.0-51.3) pg/mL NT-Pro-B Natriuret Pep 339.0 (<=1800.0) pg/mL Total Protein 7.9 (6.4-8.2) g/dL Albumin 3.2 L (3.4-5.0) g/dL Globulin 4.7 g/dL Albumin/Globulin Ratio 0.7 Influenza Type A Ag Negative Influenza Type B Ag Negative SARS-CoV-2 Ag (CV2AG) Negative (NEGATIVE) Imaging Data Chest x-ray: Attestation: I have reviewed the pertinent imaging results. Radiologist's impression: ITS Impressions Chest X-Ray 10/22/23 15:14 IMPRESSION: Minimal right basilar infiltrate Electronically authenticated by: TEENA FIELDS Date: 10/22/2023 15:43 ECG Data Attestation: I personally reviewed and interpreted this ECG as follows: (Sinus tachycardia at a rate of 116, no acute ST elevation or ectopy. EKG reviewed by attending physician.) ECG interpretation date: 10/22/23 ECG interpretation time: 15:23 Discharge Plan Discharge Chief Complaint: Upper Respiratory Infection Patient Disposition: Admitted As Inpatient Time of Disposition Decision: 16:11 Prescriptions / Home Meds: No Action albuterol 90 mcg/actuation aerosol 90 mcg inhalation .EVERY 4 HOURS PRN (Reason: SOB) Hold Instructions: no longer available albuterol sulfate 90 mcg/actuation HFA aerosol inhaler 2 puff INHALATION Q4H PRN (Reason: shortness of breath or wheezing) metoprolol succinate 25 mg tablet extended release 24 hr 25 mg PO QAM Print Language: Tamazight Referrals: Suzanne Cabral MD [Primary Care Provider] - 1 week
[2023-10-22] MEDS: 0.9 % SODIUM CHLORIDE 1,000 ML 999 ML IV (15:33)
[2023-10-22] MEDS: ACETAMINOPHEN 325 MG TABLET 650 MG PO (15:34)
[2023-10-22] MEDS: METHYLPREDNISOLONE SOD SUCC PF 125 MG/2 ML VIAL IVP (15:34)
[2023-10-22] MEDS: KETOROLAC TROMETHAMINE 30 MG/ML VIAL 15 MG IVP (15:34)
[2023-10-22 15:35] LABS: Basophils Percent Auto 0.5 % (0.2-2.0); Eosinophils Percent Auto 0.3 % (0.9-7.0); Hemoglobin 13.1 g/dL (12.0-16.0); Immature Granulocytes Abs Auto 0.03 10^3/uL (0.00-0.03); Immature Granulocytes Pct Auto 0.3 % (0.0-0.5); Lymphocytes Absolute Auto 0.9 10^3/uL (1.2-3.8); Lymphocytes Percent Auto 10.6 % (20.5-60.0); Mean Corpuscular HGB Conc 31.2 g/dL (29.9-35.2); Mean Corpuscular Hemoglobin 29.4 pg (26.7-34.0); Mean Corpuscular Volume 94.2 fL (81.0-99.0); Mean Platelet Volume 10.4 fL (9.5-13.5); Monocytes Absolute Auto 0.9 10^3/uL (0.3-0.8); Monocytes Percent Auto 9.7 % (1.7-12.0); Neutrophils Absolute Auto 6.9 10^3/uL (1.4-6.5); Neutrophils Percent Auto 78.6 % (43.0-75.0); PCO2 VBG 52.7 mmHg (40.0-52.0); Platelet Count 247 10^3/uL (150-450); Red Blood Count 4.46 10^6/uL (4.20-5.40); Red Cell Distribution Width 13.7 % (11.0-15.0); White Blood Count 8.8 10^3/uL (4.0-11.0); pH VBG 7.414 (7.330-7.430)
[2023-10-22] MEDS: ALBUTEROL SULFATE 2.5 MG/3 ML VIAL NEB IH (15:45)
[2023-10-22 15:56] LABS: Alanine Aminotransferase 29 U/L (14-59); Albumin Globulin Ratio 0.7; Albumin Level 3.2 g/dL (3.4-5.0); Alkaline Phosphatase 125 U/L (46-116); Anion Gap 11.3; Aspartate Amino Transferase 24 U/L (15-37); BUN Creatinine Ratio 9.1; Bilirubin Total 0.4 mg/dL (0.2-1.0); Chloride 100 mmol/L (98-107); Estimated GFR (African America >60 (>=60); Estimated GFR (Non-African Ame 55 (>=60); Globulin 4.7 g/dL; Glucose 89 mg/dL (74-106); Potassium 4.3 mmol/L (3.5-5.1); Sodium 140 mmol/L (136-145); Total Protein 7.9 g/dL (6.4-8.2)
[2023-10-22 15:59] LABS: Influenza Virus A Antigen Negative; Influenza Virus B Antigen Negative; Internal Control Within Normal Limits; SARS-CoV-2 Ag NEGATIVE (NEGATIVE)
[2023-10-22 16:01] LABS: Lactate/Lactic Acid 1.4 mmol/L (0.4-2.0)
[2023-10-22 16:02] LABS: Troponin I High Sensitivity <4.0 pg/mL (4.0-51.3)
[2023-10-22] MEDS: CEFTRIAXONE 1,000 MG in 0.9 % SODIUM CHLORIDE 50 ML 100 MG IV (16:23)
--- NOTE | 2023-10-22 16:45 | P.HP_ITS ---
<Statement entered by Shaikh Champ MD - 10/22/23 22:43> This documentation has been reviewed and approved. Case discussed with ED provider and [employer], Selene. Chart reviewed. Patient was not personally evaluated or seen by me. Agree with her documentation and treatment plan. Patient admitted for Sepsis sec to RLL PNA, COPD exacerbation and started on IV rocephin/azithromycin for CAP, Systemic steroids, duonebs x for COPD exacerbation. Given patient's age, presenting illness,severity of current illness, I anticipate her to need inpatient treatment for over 2-3 midnights with close monitoring of her respiratory status and hemodynamic instability. HPI H&P: HPI History of Present Illness Chief complaint: URTI Narrative: 10/22/23 1229 This is a 77-year-old female patient with a past medical history as outlined below significant for COPD and asthma and tobacco abuse; who presented to the ED today complaining of fevers, chills, and cough. She reports onset of URI symptoms 1 week ago with mainly upper respiratory congestion only. For 5 days ago she noted onset of right chest wall pleuritic pain with deep breaths and cough productive of yellow sputum. She began to experience fevers and chills up to 101 at home that waxed and waned over the last several days. She had no significant shortness of breath beyond her baseline. She denies chest pain other than pleuritic pain, denies N/V/D. She presented to the ED for further evaluation as she continued to feel unwell. Workup in the ED revealed tachycardia (113) and fever (101.6). Her other labs were unremarkable without leukocytosis or kidney injury. Her O2 sats have been low normal at 92 to 93% on room air. COVID and influenza swabs were negative, but her respiratory panel swab is still pending. Lactic acid was unremarkable. Chest x-ray revealed a small right lower lobe infiltrate. She is being admitted as an inpatient to the hospitalist service with sepsis, pneumonia, and acute COPD exacerbation. At the time of my exam the patient is resting on a cart in the ED. She is not in respiratory distress, but on exam she has significant wheezing throughout all lung barnes and a prolonged expiratory phase. She reports an infrequent but productive cough and persistent fevers and chills accompanied by malaise. Opioid HPI Opioid Management Most Recent Opioid Data: No Data to Display Review of Systems ROS Status of ROS 10 or more systems reviewed and unremark able except as noted in history and below [facility] Medical History (Updated 10/22/23 @ 17:02 by Selene Turner NP) Cataracts, bilateral ?H26.9 - Unspecified cataract (ICD-10) O2 dependent ?Z99.81 - Dependence on supplemental oxygen (ICD-10) Pleurisy ?R09.1 - Pleurisy (ICD-10) COPD (chronic obstructive pulmonary disease) ?J44.9 - Chronic obstructive pulmonary disease, unspecified (ICD-10) Asthma ?J45.909 - Unspecified asthma, uncomplicated (ICD-10) Surgical History History of tubal ligation ?Z98.51 - Tubal ligation status (ICD-10) History of tonsillectomy ?Z90.89 - Acquired absence of other organs (ICD-10) Family History Other Family history of cancer Heart disease Social History Within the past year, how often did you have a drink containing alcohol: monthly or less Within the past year, how many standard drinks containing alcohol did you have on a typical day: 1 or 2 Total score: 0 Score interpretation: A score less than 3 is consistent with normal alcohol consumption. Smoking status: Heavy tobacco smoker Non-prescribed substance use: denies use Previous occupational history: RETIRED Known occupational exposures/hazards: No Highest level of school completed/degree received: high school graduate Meds Home Medications and Allergies Home Medications ?Medication ?Instructions ?Recorded ?Confirmed ?Type albuterol sulfate 90 mcg/actuation 2 puff inhalation Q4H PRN 05/20/23 10/22/23 History aerosol inhaler shortness of breath or wheezing metoprolol succinate 25 mg 25 mg PO QAM 05/20/23 10/22/23 History tablet,extended release 24 hr Allergies Allergy/AdvReac Type Severity Reaction Status Date / Time No Known Drug Allergies Allergy Unverified 02/15/23 11:38 Exam Constitutional Vital Signs, click to edit/add: Last Vital Signs Temp 101.6 F H 10/22/23 15:24 Pulse 113 H 04/16/24 15:47 Resp 18 10/22/23 15:37 BP 141/81 10/22/23 15:08 Pulse Ox 93 L 10/22/23 15:47 O2 Del Method Room Air 10/22/23 15:47 Common normals: no apparent distress, oriented x3, alert and well nourished General appearance: cooperative Orientation/consciousness: Yes awake HENMT Common normals: normocephalic, head/scalp atraumatic, hearing grossly normal bilaterally, external nose normal and moist oral mucous membranes Eye Common normals: PERRL, EOMs intact bilaterally, conjunctivae normal and no scleral icterus Alignment: alignment normal Eyelid: eyelids normal Neck & C-Spine Common normals: full ROM, supple and no JVD Chest Common normals: inspection of chest normal Chest: symmetrical chest wall rise Respiratory Common normals: normal respiratory effort, no retractions and no use of accessory muscles Effort & inspection: able to speak in complete sentences and prolonged expiratory phase Auscultation: wheezes expiratory wheezes and throughout and diminished lung sounds bilateral in the lower lung barnes (R>L) Cardio Common normals: no JVD, regular rhythm, S1 normal heart sound, S2 normal heart sound, no gallops, no clicks, no murmurs, no rub and peripheral pulses 2+ throughout Rate: tachycardic (Regular, 110-120) GI Common normals: Normal to inspection, nondistended, normoactive bowel sounds present, soft to palpation, non-tender, no hepatosplenomegaly, no masses and no bruits Bladder/kidney exam: bladder normal to palpation Back & Pelvis Common normals: thoracic and lumbar spine normal to inspection Extremity Common normals: normal capillary refill and no pedal edema General: normal exam except as noted; no clubbing and no cyanosis Neuro [place] Coma Scale: GCS not evaluated Common normals: CN's II-XII intact bilaterally, moves all extremities, no focal motor deficits and no sensory deficits noted Speech: speech normal Motor exam: strength 5/5 throughout Psych Common normals: mental status grossly normal, thought process normal, affect normal and activity/motor behavior normal Results Labs Labs: Short CBC 10/22/23 Range/Units 15:20 WBC 8.8 (4.0-11.0) 10^3/uL Hgb 13.1 (12.0-16.0) g/dL Hct 42.0 (36.0-48.0) % Plt Count 247 (150-450) 10^3/uL BMP 10/22/23 15:20 Sodium 140 Potassium 4.3 Chloride 100 Carbon Dioxide 33.0 H BUN 9.0 Creatinine 0.99 Glucose 89 Calcium 10.0 Liver Function 10/22/23 Range/Units 15:20 Total Bilirubin 0.4 (0.2-1.0) mg/dL AST 24 (15-37) U/L ALT 29 (14-59) U/L Alkaline Phosphatase 125 H (46-116) U/L Albumin 3.2 L (3.4-5.0) g/dL ABG ABG results: 10/22/23 15:20 VBG pH 7.414 VBG pCO2 52.7 H Pulse Oximetry Attestation: I have reviewed the pertinent pulse oximetry results. Imaging Chest x-ray: Attestation: I have reviewed the pertinent imaging results. Radiologist's impression: IMPRESSION: Minimal right basilar infiltrate Assessment and Plan Assessment and Plan (1) Right lower lobe pneumonia: Assessment and Plan: Acute * Adm inpatient * Expect at least 2 midnight stay for medically necessary hospital care * IVPB Rocephin and Azithromycin for CAP coverage * BC x 2 obtained in the ED - pending * Sputum culture, if able to obtain, to direct ABX deescalation * LR at 100/hr * See COPD exacerbation * CBC, CMP daily (2) COPD exacerbation: Assessment and Plan: Acute * Xopenex/Ipratropium nebs scheduled q6h * Avoid albuterol if possible d/t tachycardia * Pulmicort nebs BID * Solumedrol 125 mg IVP x 1, then 80 mg q6h * Guaifenesin ER BID * No hypoxia at this time (3) Sepsis: Assessment and Plan: Acute * SIRS (T 101.6, HR 113) plus documented RLL pneumonia * NS 1 liter bolus given in ED * LR at 100/hr * VS stable - no evidence of septic shock. Mentation WNL. Adequate peripheral perfusion. * Lactic Acid WNL * CBC, CMP daily (4) Tachycardia: Assessment and Plan: Acute on chronic * Continue home Toprol XL * Avoid albuterol use d/t cardiac stimulation (Xopenex only) * Tele monitoring
--- OUTSIDE RECORDS SUMMARY | 2023-10-22 17:15 | XMS_ITS | CCD ---
Author Organization [facility] Care Team Providers Care Senior Compliance Officer Name Role Phone Suzanne Glynn Unavailable REYNALDO .ARNIE Attending Unavailable REYNALDO ., ARNIE Admitting Unavailable GRETTA, DR SUZANNE Khan Primary Care Unavailable JAKE, DR JOSE ROBERTO Oliver Consulting Unavailable REYNALDO ., ANRIE Consulting Unavailable GRETTA, DR SUZANNE Khan Primary Care Unavailable GRETTA, DR SUZANNE Khan Attending Unavailable GRETTA, DR SUZANNE Khan Admitting Unavailable DONNIE, DR TEENA Piña Consulting Unavailable GRETTA, DR SUZANNE Khan Consulting Unavailable KATARINA COYLE Consulting Unavailable DEEPAK ., DR BISHOP Admitting Unavailable DEEPAK ., DR BISHOP Attending Unavailable GRETTA, DR SUZANNE Khan Primary Care Unavailable GRETTA, DR SUZANNE Khan Primary Care Unavailable PAO Singleton, LUCY Attending Unavailable PAO ., LUCY Admitting Unavailable NAVDEEP KINNEY Consulting Unavailable PAO ., LUCY Consulting Unavailable LEXII HUTTON Consulting Unavailable GRETTA, DR SUZANNE Khan Primary Care Unavailable DEEPAK ., DR BISHOP Admitting Unavailable DEEPAK ., DR BISHOP Consulting Unavailable DEEPAK ., DR BISHOP Attending Unavailable JANE GANNON Consulting Unavailable NIKOLAS ., DR KIRBY Khan Admitting Unavailable NIKOLAS ., DR KIRBY Khan Consulting Unavailable NIKOLAS ., DR KIRBY Khan Attending Unavailable GRETTA, DR SUZANNE Khan Primary Care Unavailable DEEPAK ., DR BISHOP Consulting Unavailable TOÑITO YEE Consulting Unavailable MD Suzanne Glynn Attending Provider [phone] Suzanne Glynn Attending Unavailable Suzanne Glynn Admitting Unavailable KATIE BERMUDEZ Attending Unavailable KATIE BERMUDEZ Attending Unavailable KATARINA COYLE Attending Unavailable Medications Current Medications Medication Drug Class(es) Dates Sig (Normalized) Sig (Original) [id number] 200 actuat albuterol 0.09 mg/actuat metered dose inhaler (4 sources) beta2-Adrenergic Agonist Start: 09-23-2023 take 2 puff(s) by inhalation every four hours as needed Albuterol Sulfate (Proair Hfa) 90 mcg/actuation HFA aerosol inhaler Active 2 PUFF INHALATION Every 4 hours September 23, 2023 12:00am [employer] puffs as needed Inhalation every 4 hrs; Note: Source Status: Taking; Provider: Hermelinda Mcpherson Start: 11-13-2013 take 2 puff(s) by in halation every four hours as needed for cough Albuterol Sulfate HFA 108 (90 Base) MCG/ACT 2 puffs as needed Inhalation every 4 hrs for As needed for cough or wheeze November, Not-Taking Albuterol Active Augmentin Tablets 875 MG (2 sources) Start: 06-21-2014 take 1 tablet by mouth every twelve hours Augmentin Tablets 875 MG 1 tab(s) By Mouth bid for 10 day(s) Jun, Active predniSONE 20 mg oral tablet (4 sources) Start: 06-21-2014 predniSONE 20 mg 3 tabs a day for three days, 2 tabs a day for three days, 1 tab a day for three days Orally Once a day for 9 days Jun, Active Start: 11-13-2013 take 1 tablet by ginny th every twelve hours predniSONE 20 MG 1 tablet with food or milk Orally Twice a day for 3 day(s) November, Not-Taking ProAir HFA 108 (90 Base) MCG/ACT (5 sources) Start: 06-21-2014 take 2 puff(s) by inhalation every four hours as needed ProAir HFA 108 (90 Base) MCG/ACT 2 puffs as needed Inhalation every 4 hrs Jun, Active Start: 06-21-2014 take 2 puff(s) by in halation every four hours as needed ProAir HFA 108 (90 Base) MCG/ACT 2 puffs as needed Inhalation every 4 hrs for 1 month Jun, Active Completed/Discontinued Medications Medication Drug Class(es) Dates Sig (Normalized) Sig (Original) benzonatate 100 mg oral capsule (2 sources) Non-narcotic Antitussive Start: 11-13-2013 take 1 capsule by mouth every eight hours Benzonatate 100 MG 1 capsule as needed Orally Every 8 hours for As needed for cough November, Not-Taking cefTRIAXone (10 sources) Cephalosporin Antibacterial Start: 06-21-2014 Rocephin 500 mg Jun, 500 mg Start: 11-13-2013 Rocephin 500 m g November, 1000 mg clarithromycin 500 mg oral tablet (2 sources) Macrolide Antimicrobial Start: 11-13-2013 take 1 tablet by mouth twice daily Biaxin 500 MG 1 tablet Orally Twice a day for 10 day(s) November, Not-Taking Triamcinolone (5 sources) Corticosteroid Start: 06-21-2014 KENALOG - 10 mg Jun, 40 mg Problems Active Problems Problem Classification Problem Date Documented Date Episodic/Chronic Asthma (1 source) Unspecified asthma with status asthmaticus; Translations: [UNS ASTHMA W/STATUS ASTHMATICUS] Onset: 07-16-2022 Chronic Cardiac dysrhythmias (1 source) Unspecified atrial fibrillation; Translations: [UNSPECIFIED ATRIAL FIBRILLATION] Onset: 2022 Chronic Cardiac dysrhythmias (5 sources) Tachycardia, unspecified; Translations: [TACHYCARDIA UNSPECIFIED] Onset: 11-04-2022 Episodic Chronic obstructive pulmonary disease and bronchiectasis (14 sources) Pulmonary emphysema; Translations: [Other emphysema] Onset: 07-16-2022 Chronic Essential hypertension (2 sources) Essential (primary) hypertension; Translations: [Essential (primary) hypertension] Onset: 03-12-2023 Chronic Genitourinary symptoms and ill-defined conditions (2 sources) Dysuria; Translations: [Dysuria] Onset: 04-11-2023 Episodic Other aftercare (1 source) Other mcfp (current) drug therapy; Translations: [OTH CASEWORKER CURRENT DRUG THERAPY] Onset: 11-14-2022 Episodic Other lower respiratory disease (1 source) Personal history of pneumonia (recurrent); Translations: [PERSONAL HX OF PNEUMONIA RECURRENT] Onset: 11-14-2022 Episodic Other lower respiratory disease (4 sources) Shortness of breath; Translations: [SHORTNESS OF BREATH] Onset: 2022 Episodic Respiratory failure; insufficiency; arrest (adult) (1 source) Dependence on supplemental oxygen; Translations: [DEPENDENCE ON SUPPLEMENTAL OXYGEN] Onset: 2022 Chronic Substance-related disorders (1 source) Nicotine dependence, cigarettes, uncomplicated; Translations: [NICOTINE DEPEND CIGARETTES UNCOMP] Onset: 11-14-2022 Chronic Unclassified (1 source) CONTACT W/AND (SUSP) EXPOS COVID-19; Translations: [CONTACT W/AND (SUSP) EXPOS COVID-19] Onset: 11-14-2022 Unclassified (1 source) Supraventricular tachycardia, unspecified; Translations: [Supraventricular tachycardia, unspecified] Onset: 05-10-2023 Unclassified (2 sources) Rapid Heart Rate; Translations: [Rapid Heart Rate] Onset: 2022 Past or Other Problems Problem Classification Problem Date Documented Date Episodic/Chronic Acute bronchitis (1 source) Acute bronchitis, unspecified; Translations: [ACUTE BRONCHITIS UNSPECIFIED] Onset: 07-16-2022 Episodic Other lower respiratory disease (1 source) Hypoxemia; Translations: [HYPOXEMIA] Onset: 07-16-2022 Episodic Other screening for suspected conditions (not mental disorders or infectious disease) (4 sources) Encounter for screening mammogram for malignant neoplasm of breast; Translations: [ENC SCR MAMMO MALIG NEOPLASM BREAST] Onset: 05-10-2022 Episodic Screening and history of mental health and substance abuse codes (4 sources) Personal history of nicotine dependence; Translations: [PERSONAL HISTORY OF NICOTINE DEPEND] Onset: 06-12-2022 Episodic Unclassified (1 source) Shortness of breath 786.05 Unclassified (1 source) Supraventricular tachycardia, unspecified; Translations: [Supraventricular tachycardia, unspecified] Onset: 05-10-2023 Results Test Name Value Interpretation Reference Range Facility Office Visiton 05-10-2023 Follow-up visit [id number] Casi Frazier 1945 F Date Provider Department Center 05/10/2023 [place]IE BERMUDEZ CARD [facility] Family History Problem Relation Age of Onset Dementia Mother Heart attack Father 52 Liver cancer Brother Stroke Brother Family Status - Relation Status Age at Mother Father Brother Level of Service:33229 [place] OFFICE/OUTPATIENT ESTABLISHED MOD MDM 30-39 MIN Reason for Visit and Comments: Follow-up [053516] Normal [facility] Urine Cultureon 04-11-2023 Bacteria identified Cx Nom (U) 75,000 colonies/ml mixed bacterial skin contaminants 2 Days PERFORMED BY: [place] [id number] [place] [address] PATHOLOGIST TOP TRIMMER ELOISE RHOADES M.D. Normal [facility] Comment on above: Performed By: #### C UU #### [facility] [address] Office Visiton 02-26-2023 Follow-up visit [id number] Casi Frazier 1945 F Date Provider Department Center 02/26/2023 KATIE GOLDEN CARD [facility] Family History Problem Relation Age of Onset Dementia Mother Heart attack Father 52 Liver cancer Brother Stroke Brother Family Status - Relation Status Age at Mother Father Brother Level of Service:80884 [place] OFFICE/OUTPATIENT ESTABLISHED MOD MDM 30-39 MIN Normal [facility] BNPon 11-12-2022 Natriuretic peptide B (Bld) [Mass/Vol] 405.0 pg/mL Normal <=1,800.0 [facility] Comment on above: Performed By: #### C VDAGS #### [facility] [address] [place] [address] Dr. Verena Hurtado CBC AUTO DIFFon 11-12-2022 BASO # 0.0 103/ul Normal 0.0-0.1 [facility] Comment on above: Performed By: #### C BC #### [facility] [address] [place] [address] Dr. Verena Hurtado Basophils/100 WBC (Bld) 0.8 % Normal 0.2-2.0 [facility] Comment on above: Performed By: #### C BC #### [facility] [address] [place] [address] Dr. Verena Hurtado EO # 0.2 103/ul Normal 0.0-0.7 [facility] Comment on above: Performed By: #### C BC #### [facility] [address] [place] [address] Dr. Verena Hurtado Eosinophils/100 WBC (Bld) 5.4 % Normal 0.9-7.0 [facility] Comment on above: Performed By: #### C BC #### [facility] [address] [place] [address] Dr. Verena Hurtado Erythrocyte distribution width (RBC) [Ratio] 13.2 % Normal 11.0-15.0 [facility] Comment on above: Performed By: #### C BC #### [facility] [address] [place] [address] Dr. Verena Hurtado Hematocrit (Bld) [Volume fraction] 46.1 % Normal 36.0-48.0 [facility] Comment on above: Performed By: #### C BC #### [facility] [address] [place] [address] Dr. Verena Hurtado Hemoglobin (Bld) [Mass/Vol] 14.5 g/dL Normal 12.0-16.0 [facility] Comment on above: Performed By: #### C BC #### [facility] [address] [place] [address] Dr. Verena Hurtado IG # 0.01 10e3/ul Normal 0.00-0.03 [facility] Comment on above: Performed By: #### C BC #### [facility] [address] [place] [address] Dr. Verena Hurtado IG % 0.3 % Normal 0.0-0.5 [facility] Comment on above: Performed By: #### C BC #### [facility] [address] [place] [address] Dr. Verena Hurtado LYMPH # 1.2 103/ul Normal 1.2-3.8 [facility] Comment on above: Performed By: #### C BC #### [facility] [address] [place] [address] Dr. Verena Hurtado Lymphocytes/100 WBC (Bld) 32.9 % Normal 20.5-60.0 [facility] Comment on above: Performed By: #### C BC #### [facility] [address] [place] [address] Dr. Verena Hurtado MANUAL DIFF REQ NO Normal [facility] Comment on above: Performed By: #### C BC #### [facility] [address] [place] [address] Dr. Verena Hurtado MCH (RBC) [Entitic mass] 30.1 pg Normal 26.7-34.0 [facility] Comment on above: Performed By: #### C BC #### [facility] [address] [address] [address] Verena Hurtado MCHC (RBC) [Mass/Vol] 31.5 g/dL Normal 29.9-35.2 [facility] Comment on above: Performed By: #### C BC #### [facility] [address] [place] [address] Dr. Verena Hurtado MCV (RBC) [Entitic vol] 95.6 fL Normal 81.0-99.0 [facility] Comment on above: Performed By: #### C BC #### [facility] [address] [place] [address] Dr. Verena Hurtado MONO # 0.3 103/ul Normal 0.3-0.8 [facility] Comment on above: Performed By: #### C BC #### [facility] [address] [place] [address] Dr. Verena Hurtado Monocytes/100 WBC (Bld) 7.9 % Normal 1.7-12.0 [facility] Comment on above: Performed By: #### C BC #### [facility] [address] [place] [address] Dr. Verena Hurtado NEUT # 1.9 103/ul Normal 1.4-6.5 [facility] Comment on above: Performed By: #### C BC #### [facility] [address] [place] [address] Dr. Verena Hurtado Neutrophils/100 WBC (Bld) 52.7 % Normal 43.0-75.0 [facility] Comment on above: Performed By: #### C BC #### [facility] [address] [place] [address] Dr. Verena Hurtado Platelet mean volume (Bld) [Entitic vol] 10.6 fL Normal 9.5-13.5 [facility] Comment on above: Performed By: #### C BC #### [facility] [address] [place] [address] Dr. Verena Hurtado PLT 211 103/ul Normal 150-450 [facility] Comment on above: Performed By: #### C BC #### [facility] [address] [address] [address] Verena Hurtado RBC 4.82 106/ul Normal 4.20-5.40 [facility] Comment on above: Performed By: #### C BC #### [facility] [address] [address] [address] Verena Hurtado WBC 3.7 103/ul Critically low 4.0-11.0 [facility] Comment on above: Performed By: #### C BC #### [facility] [address] [address] [address] Verena Hurtado PROF CHEM 8 (BAS METB)on Anion gap [Moles/Vol] 5.9 mmol/L Normal [facility] Comment on above: Performed By: #### B MP #### [facility] [address] [place] [address] Dr. Vernea Hurtado Calcium [Mass/Vol] 9.1 mg/dL Normal 8.5-10.1 [facility] Comment on above: Performed By: #### B MP #### [facility] [address] [place] [address] Dr. Verena Hurtado Chloride [Moles/Vol] 107 mmol/L Normal 98-107 [facility] Comment on above: Performed By: #### B MP #### [facility] [address] [place] [address] Dr. Verena Hurtado CO2 [Moles/Vol] 32.5 mmol/L Critically high 21.0-32.0 [facility] Comment on above: Performed By: #### B MP #### [facility] [address] [place] [address] Dr. Verena Hurtado Creatinine [Mass/Vol] 0.93 mg/dL Normal 0.55-1.02 [facility] Comment on above: Performed By: #### B MP #### [facility] [address] [address] [address] Verena Hurtado EGFR-AF LITHUANIAN >60 Normal >=60 [facility] Comment on above: Performed By: #### B MP #### [facility] [address] [address] [address] Verena Hurtado EGFR-NON AF LITHUANIAN 59 mL/min/1.73m2 Critically low >=60 [facility] Comment on above: Performed By: #### B MP #### [facility] [address] [address] [address] Verena Hurtado Glucose [Mass/Vol] 95 mg/dL Normal 74-106 [facility] Comment on above: Performed By: #### B MP #### [facility] [address] [address] [address] Verena Hurtado Potassium [Moles/Vol] 4.4 mmol/L Normal 3.5-5.1 [facility] Comment on above: Performed By: #### B MP #### [facility] [address] [address] [address] Verena Hurtado Sodium [Moles/Vol] 141 mmol/L Normal 136-145 [facility] Comment on above: Performed By: #### B MP #### [facility] [address] [address] [address] Verena Hurtado Urea nitrogen [Mass/Vol] 17.0 mg/dL Normal 7.0-18.0 [facility] Comment on above: Performed By: #### B MP #### [facility] [address] [address] [address] Verena Hurtado Urea nitrogen/Creatinine [Mass ratio] 18.3 mg/mg Normal [facility] Comment on above: Performed By: #### B MP #### [facility] [address] [address] [address] Verena Hurtado SYMPTOMATIC COVID-19 ANTIGEN on 11-12-2022 EUA Statement SEE BELOW Normal [facility] Comment on above: Result Comment: This test has not been FDA cleared or approved, but has been authorized by the FDA under an Emergency Use Authorization (EUA) for use by authorized laboratories certified under CLIA that meet the requirements to perform moderate or high complexity testing. This test has been authorized only for the detection of proteins from SARS-CoV-2, not for any other viruses or pathogens. The emergency use of this test is authorized for the duration of the declaration that circumstances exist justifying the authorization of emergency use of in vitro diagnostic tests for detection and/or diagnosis of Covid-19 under section 564(b)(1) of the Act, 21 U.S.C. 360bbb-3(b)(1), unless the declaration is terminated or authorization is revoked sooner. Performed By: #### C VDAGS #### [facility] [address] [place] [address] Dr. Verena Hurtado SARS-CoV-2 (COVID-19) RNA YESSY+probe Ql (Unsp spec) Negative Normal NEGATIVE [facility] Comment on above: Performed By: #### C VDAGS #### [facility] [address] [place] [address] Dr. Verena Hurtado TROPONIN, HIGH SENSITIVITYon 11-12-2022 HSTROP 12.3 pg/mL Normal 4.0-51.3 [facility] Comment on above: Result Comment: CUT- OFF POINTS HAVE BEEN ESTABLISHED BASED ON THE FOURTH UNIVERSAL DEFINITIONS OF MYOCARDIAL INFARCTION. THE UPPER REFERENCE LIMIT (URL) OF TROPONIN, DEFINED THE 99TH PERCENTILE OF cTnI DISTRIBUTION IN A REFERENCE POPULATION, HAS BEEN CONFIRMED THE DECISION THRESHOLD FOR [place] DIAGNOSIS. Performed By: #### B MP #### [facility] [address] [place] [address] Dr. Verena Hurtado XR CHEST 1 Von 11-12-2022 XR CHEST 1 V EXAM: XR CHEST 1 V HISTORY: Chest pain. COMPARISON: 11/04/2022. TECHNIQUE: AP erect portable chest radiograph performed. FINDINGS: The trachea is normal. There is stable mild prominence/magnificat ion of the cardiac silhouette. There is stable mild atheromatous calcification at the aortic arch. There is no consolidation or infiltrates. There is no pleural effusion or pulmonary vascular congestion. There is no pneumothorax. The bony structures are osteopenic. There is no acute osseous abnormality. IMPRESSION: There is no acute cardiopulmonary process. Electronically authenticated by: JANE GANNON Date: 2022-11-12 12:41 Normal [facility] Office Visiton 2022 Follow-up visit [id number] Casi Frazier 1945 F Date Provider Department Center 2022 KATARINA ISAACS [facility] Family History Problem Relation Age of Onset Dementia Mother Heart attack Father 52 Liver cancer Brother Stroke Brother Family Status - Relation Status Age at Mother Father Brother Level of Service:23208 [place] OFFICE/OUTPATIENT NEW HIGH MDM 60-74 MINUTES Reason for Visit and Comments: Rapid Heart Rate [302307] Normal [facility] CARDIAC ROBBIE 3-6on 3 CK [Catalytic activity/Vol] 52 U/L Normal 26-192 [facility] Comment on above: Performed By: #### C MREP #### [facility] [address] [place] [address] Dr. Verena FIELDSMB [Mass/Vol] 1.15 ng/mL Normal <=3.60 [facility] Comment on above: Performed By: #### C MREP #### [facility] [address] [place] [address] Dr. Verena Hurtado HSTROP 79.2 pg/mL Critically high 4.0-51.3 [facility] Comment on above: Result Comment: CUT- OFF POINTS HAVE BEEN ESTABLISHED BASED ON THE FOURTH UNIVERSAL DEFINITIONS OF MYOCARDIAL INFARCTION. THE UPPER REFERENCE LIMIT (URL) OF TROPONIN, DEFINED THE 99TH PERCENTILE OF cTnI DISTRIBUTION IN A REFERENCE POPULATION, HAS BEEN CONFIRMED THE DECISION THRESHOLD FOR NH DIAGNOSIS. Performed By: #### C MREP #### [facility] [address] [place] [address] Dr. Vreena Hurtado BNPon 11-04-2022 Natriuretic peptide B (Bld) [Mass/Vol] 184.0 pg/mL Normal <=900.0 [facility] Comment on above: Performed By: #### C MADM, BNP, TSH, CMP #### [facility] [address] [place] [address] Dr. Verena Hurtado CARDIAC ROBBIE ADMITon 023 CK [Catalytic activity/Vol] 65 U/L Normal 26-192 [facility] Comment on above: Performed By: #### C MADM, BNP, TSH, CMP #### [facility] [address] [place] [address] Dr. Verena Hurtado CK.MB [Mass/Vol] 1.33 ng/mL Normal <=3.60 [facility] Comment on above: Performed By: #### C MADM, BNP, TSH, CMP #### [facility] [address] [place] [address] Dr. Verena Hurtado HSTROP 18.1 pg/mL Normal 4.0-51.3 [facility] Comment on above: Result Comment: CUT- OFF POINTS HAVE BEEN ESTABLISHED BASED ON THE FOURTH UNIVERSAL DEFINITIONS OF MYOCARDIAL INFARCTION. THE UPPER REFERENCE LIMIT (URL) OF TROPONIN, DEFINED THE 99TH PERCENTILE OF cTnI DISTRIBUTION IN A REFERENCE POPULATION, HAS BEEN CONFIRMED THE DECISION THRESHOLD FOR NH DIAGNOSIS. Performed By: #### C MADM, BNP, TSH, CMP #### [facility] [address] [place] [address] Dr. Verena Hurtado FAUSTINO 48 ng/mL Normal 9-82 [facility] Comment on above: Performed By: #### C MADM, BNP, TSH, CMP #### [facility] [address] [place] [address] Dr. Verena Hurtado CBC AUTO DIFFon 11-04-2022 BASO # 0.1 103/ul Normal 0.0-0.1 [facility] Comment on above: Performed By: #### C VDAGS #### [facility] [address] [place] [address] Dr. Verena Hurtado Basophils/100 WBC (Bld) 0.8 % Normal 0.2-2.0 [facility] Comment on above: Performed By: #### C VDAGS #### [facility] [address] [place] [address] Dr. Verena Hurtado EO # 0.3 103/ul Normal 0.0-0.7 [facility] Comment on above: Performed By: #### C VDAGS #### [facility] [address] [place] [address] Dr. Verena Hurtado Eosinophils/100 WBC (Bld) 3.9 % Normal 0.9-7.0 [facility] Comment on above: Performed By: #### C VDAGS #### [facility] [address] [place] [address] Dr. Verena Hurtado Erythrocyte distribution width (RBC) [Ratio] 13.5 % Normal 11.0-15.0 [facility] Comment on above: Performed By: #### C VDAGS #### [facility] [address] [place] [address] Dr. Verena Hurtado Hematocrit (Bld) [Volume fraction] 50.2 % Critically high 36.0-48.0 [facility] Comment on above: Performed By: #### C VDAGS #### [facility] [address] [place] [address] Dr. Verena Hurtado Hemoglobin (Bld) [Mass/Vol] 16.0 g/dL Normal 12.0-16.0 [facility] Comment on above: Performed By: #### C VDAGS #### [facility] [address] [place] [address] Dr. Verena Hurtado IG # 0.01 10e3/ul Normal 0.00-0.03 [facility] Comment on above: Performed By: #### C VDAGS #### [facility] [address] [place] [address] Dr. Verena Hurtado IG % 0.2 % Normal 0.0-0.5 [facility] Comment on above: Performed By: #### C VDAGS #### [facility] [address] [place] [address] Dr. Verena Hurtado LYMPH # 2.3 103/ul Normal 1.2-3.8 [facility] Comment on above: Performed By: #### C VDAGS #### [facility] [address] [place] [address] Dr. Verena Hurtado Lymphocytes/100 WBC (Bld) 35.3 % Normal 20.5-60.0 [facility] Comment on above: Performed By: #### C VDAGS #### [facility] [address] [place] [address] Dr. Verena Hurtado MANUAL DIFF REQ NO Normal [facility] Comment on above: Performed By: #### C VDAGS #### [facility] [address] [place] [address] Dr. Verena Hurtado MCH (RBC) [Entitic mass] 30.4 pg Normal 26.7-34.0 [facility] Comment on above: Performed By: #### C VDAGS #### [facility] [address] [place] [address] Dr. Verena Hurtado MCHC (RBC) [Mass/Vol] 31.9 g/dL Normal 29.9-35.2 [facility] Comment on above: Performed By: #### C VDAGS #### [facility] [address] [place] [address] Dr. Verena Hurtado MCV (RBC) [Entitic vol] 95.4 fL Normal 81.0-99.0 [facility] Comment on above: Performed By: #### C VDAGS #### [facility] [address] [place] [address] Dr. Verena Hurtado MONO # 0.5 103/ul Normal 0.3-0.8 [facility] Comment on above: Performed By: #### C VDAGS #### [facility] [address] [place] [address] Dr. Verena Hurtado Monocytes/100 WBC (Bld) 8.4 % Normal 1.7-12.0 [facility] Comment on above: Performed By: #### C VDAGS #### [facility] [address] [place] [address] Dr. Verena Hurtado NEUT # 3.3 103/ul Normal 1.4-6.5 [facility] Comment on above: Performed By: #### C VDAGS #### [facility] [address] [place] [address] Dr. Verena Hurtado Neutrophils/100 WBC (Bld) 51.4 % Normal 43.0-75.0 [facility] Comment on above: Performed By: #### C VDAGS #### [facility] [address] [place] [address] Dr. Verena Hurtado Platelet mean volume (Bld) [Entitic vol] 11.2 fL Normal 9.5-13.5 [facility] Comment on above: Performed By: #### C VDAGS #### [facility] [address] [address] [address] Verena Hurtado PLT 262 103/ul Normal 150-450 [facility] Comment on above: Performed By: #### C VDAGS #### [facility] [address] [id number] Verena Hurtado RBC 5.26 106/ul Normal 4.20-5.40 [facility] Comment on above: Performed By: #### C VDAGS #### [facility] [address] [address] [address] Verena Hurtado WBC 6.5 103/ul Normal 4.0-11.0 [facility] Comment on above: Performed By: #### C VDAGS #### [facility] [address] [place] [address] Dr. Verena Hurtado D-DIMERon 11-04-2022 D-DIMER 0.32 mg/L FEU Normal <=0.59 [facility] Comment on above: Performed By: #### C VDAGS #### [facility] [address] [place] [address] Dr. Verena Hurtado D-DIMER COMMENTS SEE BELOW Normal [facility] Comment on above: Result Comment: Incr eases in D-Dimer concentration observed with thromboembolic events can be variable due to localization, size, and age of the thrombus. Therefore, a thromboembolic event cannot be diagnosed with certainty on the basis of the reference range. D-Dimers may also be elevated for a variety of disorders including: advanced age, , coronary disease, cancer, liver disease, infection, inflammation, hematoma, DIC, trauma, post-surgery, diabetes, thrombolytic or anticoagulant therapy, stress, and generalized hospitalization. Performed By: #### C VDAGS #### [facility] [address] [place] [address] Dr. Verena Hurtado PROF 14(COMP METB)on 023 Albumin [Mass/Vol] 3.8 g/dL Normal 3.4-5.0 [facility] Comment on above: Performed By: #### C MADM, BNP, TSH, CMP #### [facility] [address] [address] [address] Verena Hurtado Albumin/Globulin [Mass ratio] 0.9 {ratio} Normal [facility] Comment on above: Performed By: #### C MADM, BNP, TSH, CMP #### [facility] [address] [address] [address] Verena Hurtado ALP [Catalytic activity/Vol] 108 U/L Normal 46-116 [facility] Comment on above: Performed By: #### C MADM, BNP, TSH, CMP #### [facility] [address] [address] [address] Verena Hurtado ALT [Catalytic activity/Vol] 21 U/L Normal 14-59 [facility] Comment on above: Performed By: #### C MADM, BNP, TSH, CMP #### [facility] [address] [place] [address] Dr. Verena Hurtado Anion gap [Moles/Vol] 8.5 mmol/L Normal [facility] Comment on above: Performed By: #### C MADM, BNP, TSH, CMP #### [facility] [address] [address] [address] Verena Hurtado AST [Catalytic activity/Vol] 17 U/L Normal 15-37 [facility] Comment on above: Performed By: #### C MADM, BNP, TSH, CMP #### [facility] [address] [address] [address] Verena Hurtado Bilirubin [Mass/Vol] 0.1 mg/dL Critically low 0.2-1.0 [facility] Comment on above: Performed By: #### C MADM, BNP, TSH, CMP #### [facility] [address] [address] [address] Verena Hurtado Calcium [Mass/Vol] 10.0 mg/dL Normal 8.5-10.1 [facility] Comment on above: Performed By: #### C MADM, BNP, TSH, CMP #### [facility] [address] [address] [address] Verena Hurtado Chloride [Moles/Vol] 107 mmol/L Normal 98-107 [facility] Comment on above: Performed By: #### C MADM, BNP, TSH, CMP #### [facility] [address] [place] [address] Dr. Verena Hurtado CO2 [Moles/Vol] 31.4 mmol/L Normal 21.0-32.0 [facility] Comment on above: Performed By: #### C MADM, BNP, TSH, CMP #### [facility] [address] [place] [address] Dr. Verena Hurtado Creatinine [Mass/Vol] 1.06 mg/dL Critically high 0.55-1.02 [facility] Comment on above: Performed By: #### C MADM, BNP, TSH, CMP #### [facility] [address] [place] [address] Dr. Verena Hurtado EGFR-AF LITHUANIAN >60 Normal >=60 [facility] Comment on above: Performed By: #### C MADM, BNP, TSH, CMP #### [facility] [address] [place] [address] Dr. Verena Hurtado EGFR-NON AF LITHUANIAN 51 mL/min/1.73m2 Critically low >=60 [facility] Comment on above: Performed By: #### C MADM, BNP, TSH, CMP #### [facility] [address] [place] [address] Dr. Verena Hurtado Globulin (S) [Mass/Vol] 4.2 g/dL Normal [facility] Comment on above: Performed By: #### C MADM, BNP, TSH, CMP #### [facility] [address] [place] [address] Dr. Verena Hurtado Glucose [Mass/Vol] 144 mg/dL Critically high 74-106 [facility] Comment on above: Performed By: #### C MADM, BNP, TSH, CMP #### [facility] [address] [place] [address] Dr. Verena Hurtado Potassium [Moles/Vol] 3.9 mmol/L Normal 3.5-5.1 [facility] Comment on above: Performed By: #### C MADM, BNP, TSH, CMP #### [facility] [address] [place] [address] Dr. Verena Hurtado Protein [Mass/Vol] 8.0 g/dL Normal 6.4-8.2 [facility] Comment on above: Performed By: #### C MADM, BNP, TSH, CMP #### [facility] [address] [place] [address] Dr. Verena Hurtado Sodium [Moles/Vol] 143 mmol/L Normal 136-145 [facility] Comment on above: Performed By: #### C MADM, BNP, TSH, CMP #### [facility] [address] [place] [address] Dr. Verena Hurtado Urea nitrogen [Mass/Vol] 16.0 mg/dL Normal 7.0-18.0 [facility] Comment on above: Performed By: #### C MADM, BNP, TSH, CMP #### [facility] [address] [place] [address] Dr. Verena Hurtado Urea nitrogen/Creatinine [Mass ratio] 15.1 mg/mg Normal [facility] Comment on above: Performed By: #### C MADM, BNP, TSH, CMP #### [facility] [address] [place] [address] Dr. Verena Hurtado PROTIMEon 11-04-2022 INR Coag (PPP) [Relative time] 0.95 {INR} Normal [facility] Comment on above: Performed By: #### C VDAGS #### [facility] [address] [place] [address] Dr. Verena Hurtado INR GUIDELINES SEE BELOW Normal [facility] Comment on above: Result Comment: YAIR RED INR: 2.0 - 3.0 CONDITIONS NOT LISTED BELOW 2.5 - 3.5 FOR PROSTHETIC HEART VALVE REPLACEMENT 2.5 - 3.5 RECURRENT THROMBOSIS Performed By: #### C VDAGS #### [facility] [address] [place] [address] Dr. Verena Hurtado PT Coag (PPP) [Time] 10.1 s Normal 9.0-11.6 [facility] Comment on above: Performed By: #### C VDAGS #### [facility] [address] [place] [address] Dr. Verena Hurtado PTTon 11-04-2022 aPTT Coag (Bld) [Time] 27.2 s Normal 22.3-36.2 [facility] Comment on above: Performed By: #### C VDAGS #### [facility] [address] [place] [address] Dr. Verena Hurtado TSHon 11-04-2022 TSH 1.054 uIU/mL Normal 0.358-3.740 [facility] Comment on above: Performed By: #### C MADM, BNP, TSH, CMP #### [facility] [address] [place] [address] Dr. Verena Hurtado XR CHEST 1 Von 11-04-2022 XR CHEST 1 V EXAM: XR CHEST 1 V HISTORY: Palpitations COMPARISON: 07/07/2022 TECHNIQUE: AP portable study FINDINGS: The heart is within normal limits in size. Atherosclerotic aorta without visible aneurysm. The lung barnes are well-expanded and clear. Hyperexpansion of the thorax is again noted, with flattening of the diaphragm. Pleural spaces are clear. Bony structures are unremarkable. IMPRESSION: Hyperexpansion of the thorax. In the proper clinical setting, this finding can be associated with COPD. No acute cardiopulmonary process is otherwise identified. Electronically authenticated by: Ed HUTTON Date: 2022-11-04 19:57 Normal [facility] CBC AUTO DIFFon 07-09-2022 BASO # 0.0 103/ul Normal 0.0-0.1 [facility] Comment on above: Performed By: #### C BC #### [facility] [address] [place] [address] Dr. Verena Hurtado Basophils/100 WBC (Bld) 0.2 % Normal 0.2-2.0 [facility] Comment on above: Performed By: #### C BC #### [facility] [address] [place] [address] Dr. Verena Hurtado EO # 0.0 103/ul Normal 0.0-0.7 [facility] Comment on above: Performed By: #### C BC #### [facility] [address] [address] [address] Verena Hurtado Eosinophils/100 WBC (Bld) 0.0 % Critically low 0.9-7.0 [facility] Comment on above: Performed By: #### C BC #### [facility] [address] [address] [address] Verena Hurtado Erythrocyte distribution width (RBC) [Ratio] 13.9 % Normal 11.0-15.0 [facility] Comment on above: Performed By: #### C BC #### [facility] [address] [place] [address] Dr. Verena Hurtado Hematocrit (Bld) [Volume fraction] 36.1 % Normal 36.0-48.0 [facility] Comment on above: Performed By: #### C BC #### [facility] [address] [place] [address] Dr. Verena Hurtado Hemoglobin (Bld) [Mass/Vol] 11.5 g/dL Critically low 12.0-16.0 [facility] Comment on above: Performed By: #### C BC #### [facility] [address] [place] [address] Dr. Verena Hurtado IG # 0.21 10e3/ul Critically high 0.00-0.03 [facility] Comment on above: Performed By: #### C BC #### [facility] [address] [place] [address] Dr. Verena Hurtado IG % 1.5 % Critically high 0.0-0.5 [facility] Comment on above: Performed By: #### C BC #### [facility] [address] [place] [address] Dr. Verena Hurtado LYMPH # 0.6 103/ul Critically low 1.2-3.[address] [facility] Comment on above: Performed By: #### C BC #### [facility] [address] [place] [address] Dr. Verena Hurtado Lymphocytes/100 WBC (Bld) 4.2 % Critically low 20.5-60.0 [facility] Comment on above: Performed By: #### C BC #### [facility] [address] [place] [address] Dr. Verena Hurtado MANUAL DIFF REQ NO Normal [facility] Comment on above: Performed By: #### C BC #### [facility] [address] [place] [address] Dr. Verena Hurtado MCH (RBC) [Entitic mass] 30.3 pg Normal 26.7-34.0 [facility] Comment on above: Performed By: #### C BC #### [facility] [address] [place] [address] Dr. Verena Hurtado MCHC (RBC) [Mass/Vol] 31.9 g/dL Normal 29.9-35.2 [facility] Comment on above: Performed By: #### C BC #### [facility] [address] [place] [address] Dr. Verena Hurtado MCV (RBC) [Entitic vol] 95.3 fL Normal 81.0-99.0 [facility] Comment on above: Performed By: #### C BC #### [facility] [address] [place] [address] Dr. Verena Hurtado MONO # 0.4 103/ul Normal 0.3-0.8 [facility] Comment on above: Performed By: #### C BC #### [facility] [address] [place] [address] Dr. Verena Hurtado Monocytes/100 WBC (Bld) 3.1 % Normal 1.7-12.0 [facility] Comment on above: Performed By: #### C BC #### [facility] [address] [place] [address] Dr. Verena Hurtado NEUT # 12.4 103/ul Critically high 1.4-6.5 [facility] Comment on above: Performed By: #### C BC #### [facility] [address] [place] [address] Dr. Verena Hurtado Neutrophils/100 WBC (Bld) 91.0 % Critically high 43.0-75.0 [facility] Comment on above: Performed By: #### C BC #### [facility] [address] [address] [address] Verena Hurtado Platelet mean volume (Bld) [Entitic vol] 10.7 fL Normal 9.5-13.5 [facility] Comment on above: Performed By: #### C BC #### [facility] [address] [place] [address] Dr. Verena Hurtado PLT 245 103/ul Normal 150-450 [facility] Comment on above: Performed By: #### C BC #### [facility] [address] [address] [address] Verena Hurtado RBC 3.79 106/ul Critically low 4.20-5.40 [facility] Comment on above: Performed By: #### C BC #### [facility] [address] [place] [address] Dr. Verena Hurtado WBC 13.7 103/ul Critically high 4.0-11.0 [facility] Comment on above: Performed By: #### C BC #### [facility] [address] [place] [address] Dr. Verena Hurtado PROF CHEM 8 (BAS METB)on Anion gap [Moles/Vol] 11.2 mmol/L Normal [facility] Comment on above: Performed By: #### B MP #### [facility] [address] [place] [address] Dr. Verena Hurtado Calcium [Mass/Vol] 9.5 mg/dL Normal 8.5-10.1 [facility] Comment on above: Performed By: #### B MP #### [facility] [address] [place] [address] Dr. Verena Hurtado Chloride [Moles/Vol] 107 mmol/L Normal 98-107 [facility] Comment on above: Performed By: #### B MP #### [facility] [address] [place] [address] Dr. Verena Hurtado CO2 [Moles/Vol] 28.7 mmol/L Normal 21.0-32.0 [facility] Comment on above: Performed By: #### B MP #### [facility] [address] [address] [address] Verena Hurtado Creatinine [Mass/Vol] 0.91 mg/dL Normal 0.55-1.02 [facility] Comment on above: Performed By: #### B MP #### [facility] [address] [address] [address] Verena Hurtado EGFR-AF LITHUANIAN >60 Normal >=60 [facility] Comment on above: Performed By: #### B MP #### [facility] [address] [address] [address] Verena Hurtado EGFR-NON AF LITHUANIAN >60 Normal >=60 [facility] Comment on above: Performed By: #### B MP #### [facility] [address] [place] [address] Dr. Verena Hurtado Glucose [Mass/Vol] 189 mg/dL Critically high 74-106 [facility] Comment on above: Performed By: #### B MP #### [facility] [address] [address] [address] Verena Hurtado Potassium [Moles/Vol] 3.9 mmol/L Normal 3.5-5.1 [facility] Comment on above: Performed By: #### B MP #### [facility] [address] [place] [address] Dr. Verena Hurtado Sodium [Moles/Vol] 143 mmol/L Normal 136-145 [facility] Comment on above: Performed By: #### B MP #### [facility] [address] [address] [address] Verena Hurtado Urea nitrogen [Mass/Vol] 24.0 mg/dL Critically high 7.0-18.0 [facility] Comment on above: Performed By: #### B MP #### [facility] [address] [place] [address] Dr. Verena Hurtado Urea nitrogen/Creatinine [Mass ratio] 26.4 mg/mg Normal [facility] Comment on above: Performed By: #### B MP #### [facility] [address] [place] [address] Dr. Verena Hurtado CBC AUTO DIFFon 01-01-2023 BASO # 0.0 103/ul Normal 0.0-0.1 [facility] Comment on above: Performed By: #### C BC #### [facility] [address] [address] [address] Verena Hurtado Basophils/100 WBC (Bld) 0.2 % Normal 0.2-2.0 [facility] Comment on above: Performed By: #### C BC #### [facility] [address] [address] [address] Verena Hurtado EO # 0.0 103/ul Normal 0.0-0.7 [facility] Comment on above: Performed By: #### C BC #### [facility] [address] [place] [address] Dr. Verena Hurtado Eosinophils/100 WBC (Bld) 0.0 % Critically low 0.9-7.0 [facility] Comment on above: Performed By: #### C BC #### [facility] [address] [place] [address] Dr. Verena Hurtado Erythrocyte distribution width (RBC) [Ratio] 13.5 % Normal 11.0-15.0 [facility] Comment on above: Performed By: #### C BC #### [facility] [address] [place] [address] Dr. Verena Hurtado Hematocrit (Bld) [Volume fraction] 38.1 % Normal 36.0-48.0 [facility] Comment on above: Performed By: #### C BC #### [facility] [address] [place] [address] Dr. Verena Hurtado Hemoglobin (Bld) [Mass/Vol] 11.9 g/dL Critically low 12.0-16.0 [facility] Comment on above: Performed By: #### C BC #### [facility] [address] [place] [address] Dr. Verena Hurtado IG # 0.05 10e3/ul Critically high 0.00-0.03 [facility] Comment on above: Performed By: #### C BC #### [facility] [address] [place] [address] Dr. Verena Hurtado IG % 0.9 % Critically high 0.0-0.5 [facility] Comment on above: Performed By: #### C BC #### [facility] [address] [place] [address] Dr. Verena Hurtado LYMPH # 0.5 103/ul Critically low 1.2-3.[address] [facility] Comment on above: Performed By: #### C BC #### [facility] [address] [place] [address] Dr. Verena Hurtado Lymphocytes/100 WBC (Bld) 9.3 % Critically low 20.5-60.0 [facility] Comment on above: Performed By: #### C BC #### [facility] [address] [place] [address] Dr. Verena Hurtado MANUAL DIFF REQ NO Normal [facility] Comment on above: Performed By: #### C BC #### [facility] [address] [place] [address] Dr. Verena Hurtado MCH (RBC) [Entitic mass] 30.1 pg Normal 26.7-34.0 [facility] Comment on above: Performed By: #### C BC #### [facility] [address] [place] [address] Dr. Verena Hurtado MCHC (RBC) [Mass/Vol] 31.2 g/dL Normal 29.9-35.2 [facility] Comment on above: Performed By: #### C BC #### [facility] [address] [place] [address] Dr. Verena Hurtado MCV (RBC) [Entitic vol] 96.5 fL Normal 81.0-99.0 [facility] Comment on above: Performed By: #### C BC #### [facility] [address] [place] [address] Dr. Verena Hurtado MONO # 0.1 103/ul Critically low 0.3-0.[address] [facility] Comment on above: Performed By: #### C BC #### [facility] [address] [place] [address] Dr. Verena Hurtado Monocytes/100 WBC (Bld) 1.8 % Normal 1.7-12.0 [facility] Comment on above: Performed By: #### C BC #### [facility] [address] [place] [address] Dr. Verena Hurtado NEUT # 4.8 103/ul Normal 1.4-6.5 [facility] Comment on above: Performed By: #### C BC #### [facility] [address] [place] [address] Dr. Verena Hurtado Neutrophils/100 WBC (Bld) 87.8 % Critically high 43.0-75.0 [facility] Comment on above: Performed By: #### C BC #### [facility] [address] [place] [address] Dr. Verena Hurtado Platelet mean volume (Bld) [Entitic vol] 10.6 fL Normal 9.5-13.5 [facility] Comment on above: Performed By: #### C BC #### [facility] [address] [place] [address] Dr. Verena Hurtado PLT 200 103/ul Normal 150-450 [facility] Comment on above: Performed By: #### C BC #### [facility] [address] [place] [address] Dr. Verena Hurtado RBC 3.95 106/ul Critically low 4.20-5.40 [facility] Comment on above: Performed By: #### C BC #### [facility] [address] [place] [address] Dr. Verena Hurtado WBC 5.5 103/ul Normal 4.0-11.0 [facility] Comment on above: Performed By: #### C BC #### [facility] [address] [place] [address] Dr. Verena Hurtado PROF CHEM 8 (BAS METB)on Anion gap [Moles/Vol] 13.7 mmol/L Normal [facility] Comment on above: Performed By: #### C BC #### [facility] [address] [place] [address] Dr. Verena Hurtado Calcium [Mass/Vol] 9.3 mg/dL Normal 8.5-10.1 [facility] Comment on above: Performed By: #### C BC #### [facility] [address] [address] [address] Verena Hurtado Chloride [Moles/Vol] 104 mmol/L Normal 98-107 [facility] Comment on above: Performed By: #### C BC #### [facility] [address] [address] [address] Verena Hurtado CO2 [Moles/Vol] 27.2 mmol/L Normal 21.0-32.0 [facility] Comment on above: Performed By: #### C BC #### [facility] [address] [place] [address] Dr. Verena Hurtado Creatinine [Mass/Vol] 1.14 mg/dL Critically high 0.55-1.02 [facility] Comment on above: Performed By: #### C BC #### [facility] [address] [address] [address] Verena Hurtado EGFR-AF LITHUANIAN 56 mL/min/1.73m2 Critically low >=60 [facility] Comment on above: Performed By: #### C BC #### [facility] [address] [place] [address] Dr. Verena Hurtado EGFR-NON AF LITHUANIAN 47 mL/min/1.73m2 Critically low >=60 [facility] [facility] Comment [facility] above: Performed By: #### C BC #### [facility] [address] [address] [address] Verena Hurtado Glucose [Mass/Vol] 288 mg/dL Critically high 74-106 [facility] Comment on above: Performed By: #### C BC #### [facility] [address] [address] [address] Verena Hurtado Potassium [Moles/Vol] 3.9 mmol/L Normal 3.5-5.1 [facility] Comment on above: Performed By: #### C BC #### [facility] [address] [address] [address] Verena Hurtado Sodium [Moles/Vol] 141 mmol/L Normal 136-145 [facility] Comment on above: Performed By: #### C BC #### [facility] [address] [place] [address] Dr. Verena Hurtado Urea nitrogen [Mass/Vol] 18.0 mg/dL Normal 7.0-18.0 [facility] Comment on above: Performed By: #### C BC #### [facility] [address] [place] [address] Dr. Verena Hurtado Urea nitrogen/Creatinine [Mass ratio] 15.8 mg/mg Normal [facility] Comment on above: Performed By: #### C BC #### [facility] [address] [place] [address] Dr. Verena Hurtado BNPon 07-07-2022 Natriuretic peptide B (Bld) [Mass/Vol] 137.0 pg/mL Normal <=900.0 [facility] Comment on above: Performed By: #### C VDAGS #### [facility] [address] [place] [address] Dr. Verena Hurtado CBC AUTO DIFFon 07-07-2022 BASO # 0.0 103/ul Normal 0.0-0.1 [facility] Comment on above: Performed By: #### C BC #### [facility] [address] [place] [address] Dr. Verena Hurtado Basophils/100 WBC (Bld) 0.5 % Normal 0.2-2.0 [facility] Comment on above: Performed By: #### C BC #### [facility] [address] [place] [address] Dr. Verena Hurtado EO # 0.0 103/ul Normal 0.0-0.7 [facility] Comment on above: Performed By: #### C BC #### [facility] [address] [place] [address] Dr. Verena Hurtado Eosinophils/100 WBC (Bld) 0.5 % Critically low 0.9-7.0 [facility] Comment on above: Performed By: #### C BC #### [facility] [address] [place] [address] Dr. Verena Hurtado Erythrocyte distribution width (RBC) [Ratio] 13.5 % Normal 11.0-15.0 [facility] Comment on above: Performed By: #### C BC #### [facility] [address] [place] [address] Dr. Verena Hurtado Hematocrit (Bld) [Volume fraction] 45.3 % Normal 36.0-48.0 [facility] Comment on above: Performed By: #### C BC #### [facility] [address] [place] [address] Dr. Verena Hurtado Hemoglobin (Bld) [Mass/Vol] 14.8 g/dL Normal 12.0-16.0 [facility] Comment on above: Performed By: #### C BC #### [facility] [address] [place] [address] Dr. Verena Hurtado IG # 0.04 10e3/ul Critically high 0.00-0.03 [facility] Comment on above: Performed By: #### C BC #### [facility] [address] [place] [address] Dr. Verena Hurtado IG % 0.5 % Normal 0.0-0.5 [facility] Comment on above: Performed By: #### C BC #### [facility] [address] [place] [address] Dr. Verena Hurtado LYMPH # 1.0 103/ul Critically low 1.2-3.[address] [facility] Comment on above: Performed By: #### C BC #### [facility] [address] [place] [address] Dr. Verena Hurtado Lymphocytes/100 WBC (Bld) 12.5 % Critically low 20.5-60.0 [facility] Comment on above: Performed By: #### C BC #### [facility] [address] [place] [address] Dr. Verena Hurtado MANUAL DIFF REQ NO Normal [facility] Comment on above: Performed By: #### C BC #### [facility] [address] [place] [address] Dr. Verena Hurtado MCH (RBC) [Entitic mass] 30.5 pg Normal 26.7-34.0 [facility] Comment on above: Performed By: #### C BC #### [facility] [address] [place] [address] Dr. Verena Hurtado MCHC (RBC) [Mass/Vol] 32.7 g/dL Normal 29.9-35.2 [facility] Comment on above: Performed By: #### C BC #### [facility] [address] [place] [address] Dr. Verena Hurtado MCV (RBC) [Entitic vol] 93.4 fL Normal 81.0-99.0 [facility] Comment on above: Performed By: #### C BC #### [facility] [address] [place] [address] Dr. Verena Hurtado MONO # 0.7 103/ul Normal 0.3-0.8 [facility] Comment on above: Performed By: #### C BC #### [facility] [address] [place] [address] Dr. Verena Hurtado Monocytes/100 WBC (Bld) 9.1 % Normal 1.7-12.0 [facility] Comment on above: Performed By: #### C BC #### [facility] [address] [place] [address] Dr. Verena Hurtado NEUT # 6.1 103/ul Normal 1.4-6.5 [facility] Comment on above: Performed By: #### C BC #### [facility] [address] [place] [address] Dr. Verena Hurtado Neutrophils/100 WBC (Bld) 76.9 % Critically high 43.0-75.0 [facility] Comment on above: Performed By: #### C BC #### [facility] [address] [place] [address] Dr. Verena Hurtado Platelet mean volume (Bld) [Entitic vol] 12.0 fL Normal 9.5-13.5 [facility] Comment on above: Performed By: #### C BC #### [facility] [address] [place] [address] Dr. Verena Hurtado PLT 69 103/ul Critically low 150-[address] [facility] Comment on above: Performed By: #### C BC #### [facility] [address] [place] [address] Dr. Verena Hurtado RBC 4.85 106/ul Normal 4.20-5.40 [facility] Comment on above: Performed By: #### C BC #### [facility] [address] [place] [address] Dr. Verena Hurtado WBC 7.9 103/ul Normal 4.0-11.0 [facility] Comment on above: Performed By: #### C BC #### [facility] [address] [place] [address] Dr. Verena Hurtado CULTURE BLOODon 07-07-2022 Microscopic examination of blood, culture Culture Observations: NO GROWTH AT 5 DAYS. Normal [facility] Comment on above: Performed By: #### C BC #### [facility] [address] [place] [address] Dr. Verena Hurtado Covid-19 PCR (CVDTB)on 06-09 SARS-CoV-2 (COVID-19) RNA YESSY+probe Ql (Unsp spec) Not detected Normal NOT DETECTED [facility] Comment on above: Result Comment: When diagnostic testing is negative, the possibility of a false negative should be considered in the context of a patient's recent exposures and the presence of clinical signs and symptoms consistent with SARS-CoV-2. This test is not yet approved or cleared by the [place] FDA. When there are no FDA-approved or cleared tests available, and other criteria are met, FDA can make tests available under an emergency access mechanism called an Emergency Use Authorization (EUA). The EUA for this test is supported by the [place] of Health and Human Service's declaration that circumstances exist to justify the emergency use of in vitro diagnostics for the detection and/or diagnosis of the virus that causes COVID-19. This EUA will remain in effect for the duration of the COVID-19 declaration justifying emergency of IVDs, unless it is terminated or revoked by the FDA (after which the test may no longer be used). Performed By: #### C VDTBH #### [facility] [address] [place] [address] Dr. Verena Hurtado INFLUENZA A AND B AGon 07-07 INFLUANEGH SEE BELOW Normal [facility] Comment on above: Result Comment: Nega tive for Flu A protein angiten. Infection due to Flu A cannot be ruled out. Flu A angiten in the sample may be below the detection limit of the test. Performed By: #### C VDAGS #### [facility] [address] [place] [address] Dr. Verena Hurtado INFLUBNEG SEE BELOW Normal [facility] Comment on above: Result Comment: Nega tive for Flu B protein antigen. Infection due to Flu B cannot be ruled out. Flu B antigen in the sample may be below the detection limit of the test. Performed By: #### C VDAGS #### [facility] [address] [place] [address] Dr. Verena Hurtado INFLUENZA A AG Negative Normal NEGATIVE SEE COMMENT [facility] Comment on above: Performed By: #### C VDAGS #### [facility] [address] [place] [address] Dr. Verena Hurtado INFLUENZA B AG Negative Normal NEGATIVE SEE COMMENT [facility] Comment on above: Performed By: #### C VDAGS #### [facility] [address] [place] [address] Dr. Verena Hurtado LACTATE/LACTIC ACIDon 2021 Lactate [Moles/Vol] 1.1 mmol/L Normal 0.4-1.9 [facility] Comment on above: Performed By: #### C VDAGS #### [facility] [address] [place] [address] Dr. Verena Hurtado PROF CHEM 8 (BAS METB)on Anion gap [Moles/Vol] 11.2 mmol/L Normal [facility] Comment on above: Performed By: #### C BC #### [facility] [address] [place] [address] Dr. Verena Hurtado Calcium [Mass/Vol] 9.5 mg/dL Normal 8.5-10.1 [facility] Comment on above: Performed By: #### C BC #### [facility] [address] [address] [address] Verena Hurtado Chloride [Moles/Vol] 100 mmol/L Normal 98-107 [facility] Comment on above: Performed By: #### C BC #### [facility] [address] [address] [address] Verena Hurtado CO2 [Moles/Vol] 29.7 mmol/L Normal 21.0-32.0 [facility] Comment on above: Performed By: #### C BC #### [facility] [address] [address] [address] Verena Hurtado Creatinine [Mass/Vol] 0.90 mg/dL Normal 0.55-1.02 [facility] Comment on above: Performed By: #### C BC #### [facility] [address] [place] [address] Dr. Verena Hurtado EGFR-AF LITHUANIAN >60 Normal >=60 [facility] Comment on above: Performed By: #### C BC #### [facility] [address] [place] [address] Dr. Verena Hurtado EGFR-NON AF LITHUANIAN >60 Normal >=60 [facility] Comment on above: Performed By: #### C BC #### [facility] [address] [address] [address] Verena Hurtado Glucose [Mass/Vol] 107 mg/dL Critically high 74-106 [facility] Comment on above: Performed By: #### C BC #### [facility] [address] [place] [address] Dr. Verena Hurtado Potassium [Moles/Vol] 4.9 mmol/L Normal 3.5-5.1 [facility] Comment on above: Performed By: #### C BC #### [facility] [address] [place] [address] Dr. Verena Hurtado Sodium [Moles/Vol] 136 mmol/L Normal 136-145 [facility] Comment on above: Performed By: #### C BC #### [facility] [address] [address] [address] Verena Hurtado Urea nitrogen [Mass/Vol] 17.0 mg/dL Normal 7.0-18.0 [facility] Comment on above: Performed By: #### C BC #### [facility] [address] [address] [address] Verena Hurtado Urea nitrogen/Creatinine [Mass ratio] 18.9 mg/mg Normal [facility] Comment on above: Performed By: #### C BC #### [facility] [address] [address] [address] Verena Hurtado TROPONIN, HIGH SENSITIVITYon 07-07-2022 HSTROP 11.9 pg/mL Normal 4.0-51.3 [facility] Comment on above: Result Comment: CUT- OFF POINTS HAVE BEEN ESTABLISHED BASED ON THE FOURTH UNIVERSAL DEFINITIONS OF MYOCARDIAL INFARCTION. THE UPPER REFERENCE LIMIT (URL) OF TROPONIN, DEFINED THE 99TH PERCENTILE OF cTnI DISTRIBUTION IN A REFERENCE POPULATION, HAS BEEN CONFIRMED THE DECISION THRESHOLD FOR [place] DIAGNOSIS. Performed By: #### C VDAGS #### [facility] [address] [place] [address] Dr. Verena Hurtado XR CHEST 1 Von 07-07-2022 XR CHEST 1 V EXAM: CHEST 1 VIEW HISTORY: COUGH TECHNIQUE: Chest, one view. COMPARISON: 12/19/2020 FINDINGS: Lungs are hyperinflated with chronic interstitial opacities throughout. There is mild scarring at the lung apices and minimal right basilar atelectasis. No focal consolidation, pleural effusion, or pneumothorax. Pulmonary vasculature is within normal limits. There is aortic atherosclerosis and normal heart size. IMPRESSION: 1. Chronic obstructive pulmonary disease without acute consolidation or effusion. Recommend followup imaging if symptoms worsen or persist. Electronically authenticated by: TOÑITO YEE Date: 2022-07-07 10:44 Normal [facility] CT LUNG CANCER SCREENINGon 1 08-13-2021 CT LUNG CANCER SCREENING EXAMINATION: CT LUNG CANCER SCREENING HISTORY: Nicotine dependence COMPARISON: CT chest 06/13/2021 TECHNIQUE: Axial, Coronal, and Sagittal images were created without the administration of IV contrast material. Dose reduction techniques were achieved by using automated exposure control and/or adjustment of mA and/or kV according to patient size and/or use of iterative reconstruction technique. FINDINGS: LUNGS: Mild apical pleural scarring and suspected scarring within right middle lobe. Scattered areas of mild mucous plugging of the bronchi bilaterally. PLEURA: No mass, effusion, or pneumothorax. VASCULATURE: No abnormality. GILSON: No mass or pathologic adenopathy. MEDIASTINUM: No mass or pathologic adenopathy. CARDIAC: No enlargement, pericardial thickening, or significant calcification. AORTA: No aneurysm or dissection. CHEST WALL: No mass or axillary adenopathy BONES: No bone lesion or fracture. LIMITED ABDOMEN: No suspicious findings. Limited images of the upper abdomen. OTHER: Negative. IMPRESSION: 1. Lung-RADS 2- Benign Appearance or Behavior. Nodules with a very low likelihood of becoming a clinically active cancer due to size or lack of growth. Follow-up CT Chest in 1 year. 2. Stable, scattered areas of mild scarring. 3. Trace amount of scattered mucous plugging of the smaller bronchi. Electronically authenticated by: JOSE ROBERTO JOSEPH Date: 2022-06-12 10:[address] [facility] MAMM SCREEN 3D LANA CADon 05-10-2022 MAMM SCREEN 3D LANA CAD Patient: CASI FRAZIER Exam Date: 05/10/2022 : 1945 Gender:F Ordering : DR SUZANNE GLYNN M.D. Admission #: [id number] Family : Order #: [id number] CLICK HERE TO VIEW EXAM RADIOLOGY REPORT PROCEDURE: MAMMOGRAM SCREENING 3D BILATERAL CAD COMPARISON: None. INDICATIONS: Screening mammography Calculator Name NCI Breast Cancer Risk Assessment Tool 5 Year Breast Cancer Risk Not Reported. Lifetime Breast Cancer Risk Not Reported. Personal Breast Cancer No Personal Ovarian Cancer No Treatments None Family Cancers None LOCATION: [facility] BREAST COMPOSITION: Almost entirely fatty. FINDINGS: DIAGNOSTIC CATEGORY 1--NEGATIVE. NO CHANGE FROM COMPARISON ASSESSMENT. Scattered benign-appearing calcifications are present. Scattered benign-appearing lymph nodes are present. RIGHT BREAST: No significant suspicious finding. LEFT BREAST: No significant suspicious finding. RECOMMENDATIONS: ROUTINE MAMMOGRAM AND CLINICAL EVALUATION IN 12 MONTHS. PLEASE NOTE: A NORMAL MAMMOGRAM DOES NOT EXCLUDE THE POSSIBILITY OF BREAST CANCER. A CLINICALLY SUSPICIOUS PALPABLE LUMP SHOULD BE BIOPSIED. Dictated by: Teena Abraham MD on 05/10/2022 at 15:31 Approved by: Teena Abraham MD on 05/10/2022 at 15:32 Normal [facility] Vital Signs Date Time Vital Sign Value Performing Clinician Facility 09-23-2023 10:52-0400 Body height 149.86 cm [facility] 09-23-2023 10:52-0400 Body mass index (BMI) [Ratio] 22.8 kg/m2 [facility] 09-23-2023 10:52-0400 Body weight 51.42 kg [facility] 09-23-2023 10:52-0400 Diastolic blood pressure 86 mm[Hg] [facility] 09-23-2023 10:52-0400 Heart rate 88 /min [facility] 09-23-2023 10:52-0400 SaO2% (BldA) [Mass fraction] 97 % [facility] 09-23-2023 10:52-0400 Systolic blood pressure 128 mm[Hg] [facility] 05-23-2023 10:30-0500 Body height 149.86 cm Suzanne Glynn Other [facility] [employer] Other 05-23-2023 10:30-0500 Body mass index (BMI) [Ratio] 24.84 kg/m2 Suzanne Glynn Other [facility] Other 05-23-2023 10:30-0500 Body weight 55.79 kg Suzanne Glynn Other [facility] Other 05-23-2023 10:30-0500 Diastolic blood pressure 84 mm[Hg] Suzanne Glynn Other [facility] [facility] Other 05-23-2023 10:30-0500 SaO2% (BldA) [Mass fraction] 93 % Suzanne Glynn Other [facility] Other 05-23-2023 10:30-0500 Systolic blood pressure 140 mm[Hg] Suzanne Glynn Other [facility] Other 04-11-2023 13:00-0400 Body height 149.86 cm Suzanne Pizano [facility] Other 04-11-2023 13:00-0400 Body mass index (BMI) [Ratio] 23.43 kg/m2 Suzanne Glynn Other [facility] [employer] Other 04-11-2023 13:00-0400 Body weight 52.62 kg Suzanne Glynn Other [facility] [employer] Other 04-11-2023 13:00-0400 Diastolic blood pressure 79 mm[Hg] Suzanne Glynn Other [facility] [employer] Other 04-11-2023 13:00-0400 Systolic blood pressure 118 mm[Hg] Suzanne Glynn Other [facility] [employer] Other 07-13-2022 12:30-0500 Body height 149.86 cm Suzanne Glynn Other [facility] [employer] Other 07-13-2022 12:30-0500 Body mass index (BMI) [Ratio] 24.44 kg/m2 Suzanne Glynn Other [facility] [employer] Other 07-13-2022 12:30-0500 Body weight 54.89 kg Suzanne Glynn Other [facility] [employer] Other 07-13-2022 12:30-0500 Diastolic blood pressure 72 mm[Hg] Suzanne Glynn Other [facility] [employer] Other 07-13-2022 12:30-0500 SaO2% (BldA) [Mass fraction] 98 % Suzanne Glynn Other [facility] [employer] Other 07-13-2022 12:30-0500 Systolic blood pressure 122 mm[Hg] Suzanne Glynn Other [facility] [employer] Other Encounters Encounter Date Encounter Type Care Provider Facility Start: 09-23-2023 End: 09-23-2023 ambulatory [facility] Work Phone: Start: 09-23-2023 End: 09-23-2023 Patient encounter procedure [facility] Physician [facility] Work Phone: Start: 05-23-2023 End: 05-23-2023 ambulatory Suzanne Glynn Other [facility] [employer] Other Start: 05-23-2023 Office outpatient vi sit 15 minutes Suzanne Glynn [facility] Start: 05-10-2023 End: 05-10-2023 ambulatory [facility] Start: 04-16-2023 End: 04-16-2023 ambulatory Suzanne Glynn Other [facility] [employer] Other Start: 04-16-2023 Telephone encounter Suzanne Glynn [facility] Start: 04-11-2023 End: 04-11-2023 ambulatory Suzanne Glynn Facility:[facility] Start: 04-11-2023 Office outpatient vi sit 15 minutes Suzanne Glynn [facility] Start: 04-11-2023 End: 04-11-2023 ambulatory MD Suzanne Glynn Work Phone: [facility] Work Phone: Start: 04-11-2023 End: 04-11-2023 Departed Referred MD Suzanne Glynn Work Phone: [facility] [place] Work Phone: Start: 02-26-2023 End: 02-26-2023 ambulatory [facility] Start: 11-19-2022 End: 11-20-2022 ambulatory KATARINA COYLE Facility:[facility] Start: 11-12-2022 End: 11-12-[address] SUZANNE GLYNN Facility:[facility] Start: 2022 End: 2022 ambulatory KATARINA COLLEEN [facility] Start: 11-04-2022 End: 11-05-[address] SUZANNE GLYNN Facility:[facility] Start: 07-16-2022 End: 07-16-2022 ambulatory Suzanne Glynn Other [facility] [employer] Other Start: 07-16-2022 Telephone encounter Suzanne Glynn [facility] Start: 07-13-2022 End: 07-13-2022 ambulatory Suzanne Glynn Other [facility] [employer] Other Start: 07-13-2022 Office outpatient vi sit 15 minutes Suzanne Glynn [facility] Start: 07-07-2022 End: 07-09-[address] KIRBY CONNOR . Facility:[facility] Start: 06-12-2022 End: 06-13-2022 ambulatory ARNIE JACOBS . Facility:[facility] Start: 05-10-2022 End: 05-11-[address] SUZANNE GLYNN Facility:[facility] Plan of Treatment Date Care Activity Detail Author Start: 04-11-2023 Bacteria identified in Urine by Culture [facility] Immunizations Immunization Date Immunization Notes Care Provider Fa cility 05-05-2022 COVID-19 Pfizer (Pediatric) Suzanne Glynn Other [facility] 11-14-2021 pneumococcal polysaccharide vaccine, 23 valent Suzanne Glynn Other [facility] 10-19-2021 COVID-19 Vaccine Pfi zer - Documentation Purposes Only Suzanne Glynn Other [facility] 04-06-2021 COVID-19 Vaccine Pfi zer - Documentation Purposes Only Suzanne Glynn Other [facility] Payers Date Payer Category Payer Self-pay 1957 Medicare [id number] 2. [id number] 1945 Unknown [id number] 2.16.84 [id number] 1945 Unknown [id number] 2.16.84 [id number] 1945 Unknown [id number] 2.16.84 [id number] 1945 Unknown [id number] 2.16.84 [id number] 1945 Unknown [id number] 2.16.84 [id number] 1945 Unknown [id number] 2.16.84 [id number] Unknown Duy BC/JORJE [id number] Unknown [id number] 2.16.8 [id number] Social History Date Type Detail Facility Unknown if ever smoked [facility] Other Sex Assigned At Sex Assigned At Bir th [facility] [employer] Other Start: 1945 Sex Assigned At Female F [facility] Start: 05-23-2023 Tobacco smoking status NHIS Smoker (finding) [facility] Clinical Notes 07-13-2022 to 05-23-2023 Note Date & Type Note Facility 05-23-2023 Evaluation note Encounter Date Diagnosis Assessment Notes May, Pulmonary emphysema, unspecified emphysema type (ICD-10 - J43.9) Continue to followup w Optimization [facility] . Finish prescribed meds. [facility] [employer] Other [id number] NoteUT Electrophysiology Consult Note Reason for visit: palpitations, s/p loop implant 05/10/23: Here for loop data review She has had some SVT episodes, some are just noise No AF seen on loop She denies feeling these episodes She denies CP, SOB, WINKLER< LE edema She does have hx COPD and not on maintenance inhalers, she does exhibit WINKLER in office and elevated HR likely related Discussed seeing station operator to consider maintenance inhalers 02/26/23: She had recent monitor showed concern for long RP tachycardia which was likely atrial tachycardia. It was recommended patient get an echocardiogram and a loop monitor for further evaluation. Echo 11/19/2022 shows normal LVEF, normal size LA And RA, normal RV size and function, moderate pulmonary hypertension RVSP 55 and she follows pulmonary with [facility], mild to moderate tricuspid regurgitation, small anterior and apical pericardial effusion with no evidence of tamponade. She continues to have palpitations. She had loop placed 02/19/[address] Coyle dressing is removed and insertion site appears clean dry and intact. There is no hematoma, ecchymosis, drainage. She denies aches, chills, fever. Loop data review shows no abnormal rhythms at this time. 11/[address] coyle HPI: Casi Frazier is a 77 y.o. year old with past medical history of COPD who has been on prednisone and follows with Dr. Jacobs. she was recently seen in [facility] ED for tachycardia at 164 bpm. She was treated with cardizem drip, but was not started on any outpatient medications at discharge. Denies recurrent palpitations and heart racing. Denies chest pain and SOB. Smokes 1 PPD. She uses O2 at night and PRN. EKG 11/04/2022 at 6:43 PM shows a narrow complex tachycardia which appears to be a long RP tachycardia suggestive of either atrial tachycardia . 11/04/2022 at 7:13 PM shows sinus tachycardia 07/07/2022 shows sinus tachycardia at [address] chest from 12/09/2020 shows multiple groundglass nodules scattered throughout the lungs especially in the left lower lobe Review of Systems Respiratory: Positive for wheezing. All other systems reviewed and are negative. PMH: Past Medical History: Diagnosis Date Abnormal ECG Asthma Emphysema of lung (CMS/HCC) Pleurisy Tachycardia PSH: Past Surgical History: Procedure Laterality Date TONSILLECTOMY TUBAL LIGATION SH: Social Determinants of Health Tobacco Use: High Risk (05/10/2023) Patient History Smoking Tobacco Use: Every Day Smokeless Tobacco Use: Never Passive Exposure: Not on file Alcohol Use: Not on file Financial Resource Strain: Not on file Food Insecurity: Not on file Transportation Needs: Not on file Physical Activity: Not on file Stress: Not on file Social Connections: Not on file Intimate Partner Violence: Not on file Depression: Not on file Housing Stability: Not on file Allergies: No Known Allergies Weight: 53.1kg Visit Vitals BP 120/80 (BP Location: Left arm, Patient Position: Sitting, BP Cuff Size: Adult) Pulse (!) 112 Resp 11 Ht 1.499 m (4' 11 ) Wt 53.1 kg (117 lb) SpO2 94% BMI 23.63 kg/m??? Smoking Status Every Day BSA 1.49 m??? Meds: Current Outpatient Medications on File Prior to Visit Medication Sig Dispense Refill albuterol 90 mcg/actuation inhaler INHALE 2 PUFFS BY MOUTH EVERY 4 HOURS IF NEEDED FOR SHORTNESS OF BREATH No current facility-administered medications on file prior to visit. ROS: Cardio Basic Cardiovascular Symptoms: no lightheadedness, no leg edema, no syncope, no orthopnea, no PND, no claudication, Constitutional Constitutional: no fever, no night sweats, no significant weight gain, no significant weight loss, no exercise intolerance Eyes Eyes: no dry eyes, no irritation, no vision change ENMT Ears: no difficulty hearing, no ear pain Nose: no frequent nosebleeds, Mouth/Throat: no sore throat, no bleeding gums, no snoring, no dry mouth, no mouth ulcers, no oral abnormalities, no teeth problems Respiratory Respiratory: no cough, no wheezing, no coughing up blood, no sleep apnea Musculoskeletal Musculoskeletal: no muscle aches, no muscle weakness, joint pain+, no back pain, no swelling in the extremities Integumentary Skin no rash, no ulcer, no varicosities, no discoloration, no pruritus Neurologic Neurologic: no loss of consciousness, no weakness, no numbness, no seizures, no dizziness, no headaches Psychiatric Psych: no depression, feeling safe in relationship, no alcohol abuse, Hematologic/Lymphatic Hematologic/Lymphatic no swollen glands, no bruising Physical Exam: Constitutional General Appearance: well-nourished, well-developed, appears stated age Level of Distress: comfortable Psychiatric Mental Status: alert, normal affect Orientation: oriented to time, place, and person Insight: good judgement Eyes Lids and Conjunctivae: non-injected, no xanthelasma ENMT Ears: n (more content not included)...[facility] 04-11-2023 Evaluation note* Encounter Date Diagnosis Assessment Notes Treatment Notes Treatment Clinical Notes 05 Oct, 2023 Dysuria (ICD-10 - R30.0) Reassured that the UA was normal. Will check culture before antibiotics as her symptoms have improved. Apr, Pulmonary emphysema, unspecified emphysema type (ICD-10 - J43.9) no refills needed. does see pulmonology regularly. [employer] [employer] Other 08-22-2023 NoteUT Electrophysiology Consult Note Reason for visit: palpitations, s/p loop implant / wound check 02/26/23: She had recent monitor showed concern for long RP tachycardia which was likely atrial tachycardia. It was recommended patient get an echocardiogram and a loop monitor for further evaluation. Echo 11/19/2022 shows normal LVEF, normal size LA And RA, normal RV size and function, moderate pulmonary hypertension RVSP 55 and she follows pulmonary with [facility], mild to moderate tricuspid regurgitation, small anterior and apical pericardial effusion with no evidence of tamponade. She continues to have palpitations. She had loop placed 02/19/[address] Coyle dressing is removed and insertion site appears clean dry and intact. There is no hematoma, ecchymosis, drainage. She denies aches, chills, fever. Loop data review shows no abnormal rhythms at this time. 11/[address] coyle HPI: Casi Frazier is a 77 y.o. year old with past medical history of COPD who has been on prednisone and follows with Dr. Jacobs. she was recently seen in [facility] ED for tachycardia at 164 bpm. She was treated with cardizem drip, but was not started on any outpatient medications at discharge. Denies recurrent palpitations and heart racing. Denies chest pain and SOB. Smokes 1 PPD. She uses O2 at night and PRN. EKG 11/04/2022 at 6:43 PM shows a narrow complex tachycardia which appears to be a long RP tachycardia suggestive of either atrial tachycardia . 11/04/2022 at 7:13 PM shows sinus tachycardia 07/07/2022 shows sinus tachycardia at [address] chest from 12/09/2020 shows multiple groundglass nodules scattered throughout the lungs especially in the left lower lobe Review of Systems Respiratory: Positive for wheezing. All other systems reviewed and are negative. PMH: Past Medical History: Diagnosis Date Abnormal ECG Asthma Emphysema of lung (CMS/HCC) Pleurisy Tachycardia PSH: Past Surgical History: Procedure Laterality Date TONSILLECTOMY TUBAL LIGATION SH: Social Determinants of Health Tobacco Use: High Risk (2022) Patient History Smoking Tobacco Use: Every Day Smokeless Tobacco Use: Never Passive Exposure: Not on file Alcohol Use: Not on file Financial Resource Strain: Not on file Food Insecurity: Not on file Transportation Needs: Not on file Physical Activity: Not on file Stress: Not on file Social Connections: Not on file Intimate Partner Violence: Not on file Depression: Not on file Housing Stability: Not on file Allergies: No Known Allergies Weight: No weight available Visit Vitals Smoking Status Every Day Meds: Current Outpatient Medications on File Prior to Visit Medication Sig Dispense Refill albuterol 90 mcg/actuation inhaler INHALE 2 PUFFS BY MOUTH EVERY 4 HOURS IF NEEDED FOR SHORTNESS OF BREATH No current facility-administered medications on file prior to visit. ROS: Cardio Basic Cardiovascular Symptoms: no lightheadedness, no leg edema, no syncope, no orthopnea, no PND, no claudication, Constitutional Constitutional: no fever, no night sweats, no significant weight gain, no significant weight loss, no exercise intolerance Eyes Eyes: no dry eyes, no irritation, no vision change ENMT Ears: no difficulty hearing, no ear pain Nose: no frequent nosebleeds, Mouth/Throat: no sore throat, no bleeding gums, no snoring, no dry mouth, no mouth ulcers, no oral abnormalities, no teeth problems Respiratory Respiratory: no cough, no wheezing, no coughing up blood, no sleep apnea Musculoskeletal Musculoskeletal: no muscle aches, no muscle weakness, joint pain+, no back pain, no swelling in the extremities Integumentary Skin no rash, no ulcer, no varicosities, no discoloration, no pruritus Neurologic Neurologic: no loss of consciousness, no weakness, no numbness, no seizures, no dizziness, no headaches Psychiatric Psych: no depression, feeling safe in relationship, no alcohol abuse, Hematologic/Lymphatic Hematologic/Lymphatic no swollen glands, no bruising Physical Exam: Constitutional General Appearance: well-nourished, well-developed, appears stated age Level of Distress: comfortable Psychiatric Mental Status: alert, normal affect Orientation: oriented to time, place, and person Insight: good judgement Eyes Lids and Conjunctivae: non-injected, no xanthelasma ENMT Ears: no lesions on external ear Nose: no lesions on external nose Oropharynx: no cyanosis, no pallor Neck Neck: supple, trachea midline Carotid Arteries: bilateral normal upstroke, no bruits Jugular Veins: normal jugular venous pressure Thyroid: not enlarged Lungs Respiratory Effort: unlabored Chest Exam: normal curvature, no thoracic deformity Auscultation: clear, no wheezing, no rales, no rhonchi Cardiovascular Rate And Rhythm: regular Heart Sounds: normal S1, normal s2, no gallop Systolic Murmur: not heard Diastoli (more content not included)...[facility] 02-26-2023 NotePatient here for wound check s/p loop recorder placement on 02/19/[address] Coyle at [facility] NoteUT Elect[facility]iology Consult Note Reason for visit: HPI: Casi Frazier is a 77 y.o. year old with past medical history of COPD who has been on prednisone and follows with Dr. Jacobs. she was recently seen in [facility] ED for tachycardia at 164 bpm. She was treated with cardizem drip, but was not started on any outpatient medications at discharge. Denies recurrent palpitations and heart racing. Denies chest pain and SOB. Smokes 1 PPD. She uses O2 at night and PRN. EKG 11/04/2022 at 6:43 PM shows a narrow complex tachycardia which appears to be a long RP tachycardia suggestive of either atrial tachycardia . 11/04/2022 at 7:13 PM shows sinus tachycardia 07/07/2022 shows sinus tachycardia at [address] chest from 12/09/2020 shows multiple groundglass nodules scattered throughout the lungs especially in the left lower lobe Review of Systems Respiratory: Positive for wheezing. All other systems reviewed and are negative. PMH: Past Medical History: Diagnosis Date Abnormal ECG Asthma Emphysema of lung (CMS/HCC) Pleurisy Tachycardia PSH: Past Surgical History: Procedure Laterality Date TONSILLECTOMY TUBAL LIGATION SH: Social Determinants of Health Tobacco Use: High Risk Smoking Tobacco Use: Every Day Smokeless Tobacco Use: Never Passive Exposure: Not on file Alcohol Use: Not on file Financial Resource Strain: Not on file Food Insecurity: Not on file Transportation Needs: Not on file Physical Activity: Not on file Stress: Not on file Social Connections: Not on file Intimate Partner Violence: Not on file Depression: Not on file Housing Stability: Not on file Allergies: No Known Allergies Weight: 55.3kg Visit Vitals BP 146/90 (BP Location: Left arm, Patient Position: Sitting) Pulse 97 Ht 1.499 m (4' 11 ) Wt 55.3 kg (122 lb) SpO2 93% BMI 24.64 kg/m??? Smoking Status Every Day BSA 1.52 m??? Meds: Current Outpatient Medications on File Prior to Visit Medication Sig Dispense Refill albuterol 90 mcg/actuation inhaler INHALE 2 PUFFS BY MOUTH EVERY 4 HOURS IF NEEDED FOR SHORTNESS OF BREATH No current facility-administered medications on file prior to visit. ROS: Cardio Basic Cardiovascular Symptoms: no lightheadedness, no leg edema, no syncope, no orthopnea, no PND, no claudication, Constitutional Constitutional: no fever, no night sweats, no significant weight gain, no significant weight loss, no exercise intolerance Eyes Eyes: no dry eyes, no irritation, no vision change ENMT Ears: no difficulty hearing, no ear pain Nose: no frequent nosebleeds, Mouth/Throat: no sore throat, no bleeding gums, no snoring, no dry mouth, no mouth ulcers, no oral abnormalities, no teeth problems Respiratory Respiratory: no cough, no wheezing, no coughing up blood, no sleep apnea Musculoskeletal Musculoskeletal: no muscle aches, no muscle weakness, joint pain+, no back pain, no swelling in the extremities Integumentary Skin no rash, no ulcer, no varicosities, no discoloration, no pruritus Neurologic Neurologic: no loss of consciousness, no weakness, no numbness, no seizures, no dizziness, no headaches Psychiatric Psych: no depression, feeling safe in relationship, no alcohol abuse, Hematologic/Lymphatic Hematologic/Lymphatic no swollen glands, no bruising Physical Exam: Constitutional General Appearance: well-nourished, well-developed, appears stated age Level of Distress: comfortable Psychiatric Mental Status: alert, normal affect Orientation: oriented to time, place, and person Insight: good judgement Eyes Lids and Conjunctivae: non-injected, no xanthelasma ENMT Ears: no lesions on external ear Nose: no lesions on external nose Oropharynx: no cyanosis, no pallor Neck Neck: supple, trachea midline Carotid Arteries: bilateral normal upstroke, no bruits Jugular Veins: normal jugular venous pressure Thyroid: not enlarged Lungs Respiratory Effort: unlabored Chest Exam: normal curvature, no thoracic deformity Auscultation: clear, no wheezing, no rales, no rhonchi Cardiovascular Rate And Rhythm: regular Heart Sounds: normal S1, normal s2, no gallop Systolic Murmur: not heard Diastolic Murmur: not heard Extremities: no cyanosis, no edema, no peripheral signs of emboli Peripheral Pulses Radial Pulse: normal Abdomen Inspection and Palpation: soft, non distended, no bruit, non tender Musculoskeletal Inspection: no joint swelling Neurologic Gait: normal gait Skin Inspection and Palpation: warm and dry Nails: no clubbing Labs: @LABRESULTS@ No results found for: CHOLESTEROL TOTAL, HDL, LDL CALC, LDL DIRECT, TRIGLYCERIDES, TSH, T3 TOTAL, T4 TOTAL, THYROID PEROXIDASE AB, BNP, BNP, BNP EKG: No results found for this or any previous visit (from the past 4464 hour(s)). Echo: Stress test: Coronary angiogram: @CATH@ Diagnostic Imaging: No images are attached to the encounter. (more content not included)...[facility]01-09-2023 Evaluation note* Encounter Date Diagnosis Assessment Notes Treatment Notes Treatment Clinical Notes Jul, Shortness of breath (ICD9-CM - 786.05) [employer] [employer] Other 01-06-2023 Evaluation note* Encounter Date Diagnosis Assessment Notes Treatment Notes Treatment Clinical Notes Jul, Other emphysema (ICD-10 - J43.8) Continue home oxygen. Finishing rx for prednisone. Will notify her station operator of her hospitalization and hopefully move up her followup appt there. Will send not today. [employer] [facility] [employer] Other Evaluation noteNo assessment information available [facility] Work Phone: Evaluation noteNo InformationNortLinio Other History general Narrative - Reported* Type Description Date Medical History Pleurisy Medical History Asthma Medical History COPD Surgical History Vocal Cord - paralysis Surgical History Tonsillectomy Hospitalization History [facility] Hospitalization History See past surgical histor y [facility] [employer] Other History general Narrative - Reported* Type Description Date Medical History Pleurisy Medical History Asthma Medical History COPD Medical History Afib Surgical History Vocal Cord - paralysis Surgical History Tonsillectomy Surgical History Loop procedure Hospitalization History [place] Hospitalization History See past surgical histor y [facility] [employer] Other History general Narrative - Reported* Type Description Date Medical History Pleurisy Medical History Asthma Medical History COPD Medical History Afib Surgical History Vocal Cord - paralysis Surgical History Tonsillectomy Surgical History Loop procedure Hospitalization History [place] Hospitalization History [facility] 05/2023 [facility] [employer] Other Summary Purpose Family History Relationship Condition Age at Onset Recorded Date/T barb father Unknown family member Unknown Not Specified Unknown Advance Directives Advance Directive Response Recorded Date/ Time Advance Directives No April 15, 2023 7:39pm Chief Complaint and Reason for Visit Chief Complaint Notes for Equipment Coverage-Oxygen Additional Source Comments REASON FOR VISIT (unrecogniz ed section and content) [facility] Hospital Follow upprescr iption refillCHECK UPurine cxTB INFORMATION SOURCE (unrecogn ized section and content) DATE CREATED AUTHOR 11/19/2022 [facility] DATE CREATED AUTHOR AUTHOR'S ORGANIZ ATION 04/17/2023 [facility] DATE CREATED AUTHOR AUTHOR'S ORGANIZ ATION 05/20/2023 [facility] Care Teams (unrecognized sec tion and content) Team Status: Inactive Member Role Status Dates Suzanne Glynn MD Attending Provider Active Team Status: Active Member Role Status Dates Suzanne Glynn MD Primary Care Provider Active Team Status: Inactive Member Role Status Dates Suzanne Glynn MD Primary Care Provide r, Attending Provider Active Start: September 23, 2023 End: September 23, 2023 Goals (unrecognized section and content) Goals may be documented in a n alternate section FOR RECORDS PERTAINING TO PATIENTS WHO ARE OR HAVE BEEN ENROLLED IN A CHEMICAL DEPENDENCY/SUBSTANCEABUSE PROGRAM, SOME INFORMATION MAY BE OMITTED. This clinical summary was aggregated from multiple sources. Caution should be exercised in using it in the provision of clinical care. This summary normalizes information from multiple sources, and as a consequence, information in this document may materially change the coding, format and clinical context of patient data. In addition, data may be omitted in some cases. CLINICAL DECISIONS SHOULD BE BASED ON THE PRIMARY CLINICAL RECORDS. [facility]. provides no warranty or guarantee of the accuracy or completeness of information in this document.
[2023-10-22 17:42] LABS: Adenovirus NOT DETECTED (NOT DETECTE); Bordetella parapertussis NOT DETECTED (NOT DETECTE); Coronavirus 229E NOT DETECTED (NOT DETECTE); Coronavirus HKU1 NOT DETECTED (NOT DETECTE); Coronavirus NL63 NOT DETECTED (NOT DETECTE); Coronavirus OC43 NOT DETECTED (NOT DETECTE); Human Metapneumovirus NOT DETECTED (NOT DETECTE); Human Rhinovirus/Enterovirus NOT DETECTED (NOT DETECTE); Influenza A NOT DETECTED (NOT DETECTE); Influenza B NOT DETECTED (NOT DETECTE); Mycoplasma pneumoniae NOT DETECTED (NOT DETECTE); Parainfluenza Virus 1 NOT DETECTED (NOT DETECTE); Parainfluenza Virus 2 NOT DETECTED (NOT DETECTE); Parainfluenza Virus 3 NOT DETECTED (NOT DETECTE); Parainfluenza Virus 4 NOT DETECTED (NOT DETECTE); Respiratory Syncytial Virus NOT DETECTED (NOT DETECTE); SARS-CoV-2 NOT DETECTED (NOT DETECTE)
[2023-10-22] MEDS: AZITHROMYCIN 250 MG TABLET 500 MG PO (17:44)
[2023-10-22] MEDS: ENOXAPARIN SODIUM 40 MG/0.4 ML SYRINGE SUBQ (17:44)
[2023-10-22] MEDS: LACTATED RINGER'S SOLUTION 1,000 ML 100 ML IV (17:44)
[2023-10-22] MEDS: IPRATROPIUM/ALBUTEROL SULFATE 3 ML AMPUL.NEB IH ×2 (19:58→23:50)
[2023-10-22] MEDS: GUAIFENESIN 600 MG TAB.ER.12H PO (20:54)
[2023-10-22] MEDS: METHYLPREDNISOLONE SOD SUCC PF 40 MG/ML VIAL 80 MG IVP (21:37)
[2023-10-22] MEDS: BUDESONIDE 0.5 MG/2 ML AMPULE NEB IH (23:50)
[2023-10-23] VITALS (20 sets, daily range): BP systolic 99–107; BP diastolic 58–63; PULSE 84–126; TEMP 36.4–36.7; O2SAT 90–96; BMI 22.2
[2023-10-23] MEDS: LACTATED RINGER'S SOLUTION 1,000 ML 100 ML IV (03:56)
[2023-10-23] MEDS: METHYLPREDNISOLONE SOD SUCC PF 40 MG/ML VIAL 80 MG IVP ×2 (03:56→09:02)
[2023-10-23] MEDS: IPRATROPIUM/ALBUTEROL SULFATE 3 ML AMPUL.NEB IH ×5 (04:05→20:06)
[2023-10-23 04:52] LABS: Basophils Percent Auto 0.2 % (0.2-2.0); Hematocrit 34.2 % (36.0-48.0); Hemoglobin 10.5 g/dL (12.0-16.0); Immature Granulocytes Abs Auto 0.04 10^3/uL (0.00-0.03); Immature Granulocytes Pct Auto 0.7 % (0.0-0.5); Lymphocytes Absolute Auto 0.5 10^3/uL (1.2-3.8); Lymphocytes Percent Auto 7.8 % (20.5-60.0); Mean Corpuscular HGB Conc 30.7 g/dL (29.9-35.2); Mean Corpuscular Hemoglobin 29.3 pg (26.7-34.0); Mean Corpuscular Volume 95.5 fL (81.0-99.0); Monocytes Absolute Auto 0.1 10^3/uL (0.3-0.8); Monocytes Percent Auto 1.2 % (1.7-12.0); Neutrophils Absolute Auto 5.4 10^3/uL (1.4-6.5); Neutrophils Percent Auto 90.1 % (43.0-75.0); Platelet Count 182 10^3/uL (150-450); Red Blood Count 3.58 10^6/uL (4.20-5.40)
[2023-10-23 05:19] LABS: Alanine Aminotransferase 19 U/L (14-59); Albumin Globulin Ratio 0.7; Albumin Level 2.4 g/dL (3.4-5.0); Alkaline Phosphatase 92 U/L (46-116); Aspartate Amino Transferase 14 U/L (15-37); BUN Creatinine Ratio 14.7; Bilirubin Total 0.2 mg/dL (0.2-1.0); Calcium 9.4 mg/dL (8.5-10.1); Carbon Dioxide 26.7 mmol/L (21.0-32.0); Chloride 105 mmol/L (98-107); Estimated GFR (African America >60 (>=60); Estimated GFR (Non-African Ame 53 (>=60); Globulin 3.6 g/dL; Glucose 223 mg/dL (74-106); Potassium 3.7 mmol/L (3.5-5.1); Sodium 140 mmol/L (136-145)
--- NOTE | 2023-10-23 07:14 | RESP.RT ---
Titrated down to 1L
[2023-10-23] MEDS: METOPROLOL SUCCINATE 25 MG TAB.ER.24H PO (08:17)
[2023-10-23] MEDS: AZITHROMYCIN 250 MG TABLET 500 MG PO (08:17)
[2023-10-23] MEDS: ENOXAPARIN SODIUM 40 MG/0.4 ML SYRINGE SUBQ (08:17)
[2023-10-23] MEDS: GUAIFENESIN 600 MG TAB.ER.12H PO ×2 (08:17→20:02)
--- NOTE | 2023-10-23 08:47 | CM.NOTE ---
Important Message From Medicare discussed with pt, pt verbalizes understanding and signs paper. Original given to pt and copy placed on pt's chart.
--- NOTE | 2023-10-23 10:32 | CM.NOTE ---
Rounds made with Dr. Oakes, no discharge today. PT and OT will evaluate pt today.
--- NOTE | 2023-10-23 11:04 | P.PN_ITS ---
<Statement entered by Shaikh Champ MD - 10/23/23 11:30> This documentation has been reviewed and approved. Patient seen and examined. Case discussed with Selene and patients RN. Agree with clinical decisions and treatment plan as outline in progress note Patient continues to have hypoxia that is worsened from her baseline. She also has diminished lung sounds due to bronchospasm and COPD exacerbation. She is very tremulous and shaky from steroids and beta agonists. Patient is subjectively feeling better from when she was admitted. However, given her age, comorbid conditions and continued resp symptoms, [place], hypoxia - it is felt that she will benefit from continued inpatient treatment of her current illness as she requires close monitoring and is at high risk of rapid deterioration and poor outcome. Exam: Frail, laying in bed, tremulous and appears ill Tachycardic, no murmur, normal rhythm Mild tachypnea, diminished air movement. Insp/exp wheezing throughout. Assessment and Plan: Sepsis RLL PNA COPD exacerbation Acute on chronic resp failure with hypoxia. Severe PCM - (low BMI, reduced muscle mass, frail) C/w IV abx, systemic steroids and inhaled duonebs. Monito resp/hemodynamic status closely. Wean off O2 as tolerated RLL PNA COPD exacerbation Acute on chronic resp failure with hypoxia Progress Note: Subjective Subjective Interval history: 10/23/23 0935 Patient is resting in bed. O2 was applied overnight for hypoxia. The patient reports today that she usually uses 2 L of O2 at night only and as needed during the day. She reports feeling improved since admission. On exam her lung sounds remain quite tight with poor air exchange and we feel an additional 24 hours of high-dose steroids and breathing treatments are indicated. The patient is agreeable to this. Discharge likely in the next 24 to 48 hours. Exam Constitutional Vital Signs, click to edit/add: Last Vital Signs Temp 97.5 F L 10/23/23 07:36 Pulse 108 H 10/23/23 09:59 Resp 22 H 10/23/23 07:36 BP 107/63 10/23/23 07:36 Pulse Ox 91 L 10/23/23 07:36 O2 Del Method Nasal Cannula 10/23/23 07:36 O2 Flow Rate 1 10/23/23 07:36 Common normals: no apparent distress, oriented x3 and alert General appearance: cooperative Orientation/consciousness: Yes awake HENMT Common normals: normocephalic, head/scalp atraumatic and hearing grossly normal bilaterally Eye Common normals: PERRL, EOMs intact bilaterally, conjunctivae normal and no scleral icterus General eye: normal appearance of both eyes Chest Common normals: inspection of chest normal Chest: symmetrical chest wall rise Respiratory Common normals: normal respiratory effort and no use of accessory muscles Effort & inspection: able to speak in complete sentences Auscultation: wheezes (Faint, scattered) and diminished lung sounds (Throughout, still quite tight) Cardio Common normals: regular rate, regular rhythm, S1 normal heart sound, S2 normal heart sound, no murmurs and peripheral pulses 2+ throughout GI Common normals: Normal to inspection, nondistended, normoactive bowel sounds present, soft to palpation, non-tender and no hepatosplenomegaly Bladder/kidney exam: bladder normal to palpation Extremity Common normals: normal to inspection and no calf tenderness General: no clubbing, no cyanosis and no edema Other: BUE tremors noted 2/2 steroid administration Neuro Common normals: CN's II-XII intact bilaterally, moves all extremities, no focal motor deficits and no sensory deficits noted Psych Common normals: mental status grossly normal Progress Note: Objective Labs Labs: Short CBC 10/22/23 10/23/23 Range/Units 15:20 04:19 WBC 8.8 6.0 (4.0-11.0) 10^3/uL Hgb 13.1 10.5 L (12.0-16.0) g/dL Hct 42.0 34.2 L (36.0-48.0) % Plt Count 247 182 (150-450) 10^3/uL BMP 10/22/23 10/23/23 15:20 04:19 Sodium 140 140 Potassium 4.3 3.7 Chloride 100 105 Carbon Dioxide 33.0 H 26.7 BUN 9.0 15.0 Creatinine 0.99 1.02 Glucose 89 223 H Calcium 10.0 9.4 Liver Function 10/22/23 10/23/23 Range/Units 15:20 04:19 Total Bilirubin 0.4 0.2 (0.2-1.0) mg/dL AST 24 14 L (15-37) U/L ALT 29 19 (14-59) U/L Alkaline Phosphatase 125 H 92 (46-116) U/L Albumin 3.2 L 2.4 L (3.4-5.0) g/dL Progress Note: A&P Assessment and Plan (1) Right lower lobe pneumonia: Assessment and Plan: Acute * Improving * Continue IVPB Rocephin and Azithromycin for CAP coverage * BC x 2 obtained in the ED - pending * Sputum culture, if able to obtain, to direct ABX deescalation * Reduce LR to 50/hr to avoid fluid overload. Pt is eating/drinking well * See COPD exacerbation * CBC, CMP daily (2) COPD exacerbation: Assessment and Plan: Acute * Continue Xopenex/Ipratropium nebs scheduled q6h * Avoid albuterol if possible d/t tachycardia * Pulmicort nebs BID * Reduce Solumedrol to 40 mg q8h * Causing significant tremors and pt is improving * Guaifenesin ER BID * Hypoxia overnight, but this is reportedly baseline (3) Sepsis: Assessment and Plan: Acute * Improving * VS still stable - no evidence of septic shock. Mentation WNL. Adequate peripheral perfusion. * Lactic Acid WNL * CBC, CMP daily (4) Tachycardia: Assessment and Plan: Acute on chronic * Continue home Toprol XL * Avoid albuterol use d/t cardiac stimulation (Xopenex only) * Tele monitoring
[2023-10-23] MEDS: BUDESONIDE 0.5 MG/2 ML AMPULE NEB IH (11:12)
--- NOTE | 2023-10-23 11:41 | SWNOTE1 ---
SW spoke with case management and pt does wear home oxygen at night, 2 liters through [employer].
--- NOTE | 2023-10-23 11:42 | SWNOTE1 ---
Pt did work with occupational therapy and was independent, no needs, walking in the halls.
[2023-10-23] MEDS: CEFTRIAXONE 1,000 MG in 0.9 % SODIUM CHLORIDE 50 ML 100 MG IV (15:54)
[2023-10-23] MEDS: LACTATED RINGER'S SOLUTION 1,000 ML 50 ML IV (16:05)
[2023-10-23] MEDS: METHYLPREDNISOLONE SOD SUCC PF 40 MG/ML VIAL IVP (16:05)
[2023-10-24] VITALS (9 sets, daily range): BP systolic 110–115; BP diastolic 62–66; PULSE 77–101; TEMP 36.4–36.6; O2SAT 91–94
[2023-10-24] MEDS: METHYLPREDNISOLONE SOD SUCC PF 40 MG/ML VIAL IVP ×2 (01:06→09:25)
[2023-10-24 05:48] LABS: Basophils Percent Auto 0.2 % (0.2-2.0); Hematocrit 33.8 % (36.0-48.0); Hemoglobin 10.4 g/dL (12.0-16.0); Immature Granulocytes Abs Auto 0.33 10^3/uL (0.00-0.03); Immature Granulocytes Pct Auto 2.5 % (0.0-0.5); Lymphocytes Absolute Auto 0.6 10^3/uL (1.2-3.8); Lymphocytes Percent Auto 4.3 % (20.5-60.0); Mean Corpuscular HGB Conc 30.8 g/dL (29.9-35.2); Mean Corpuscular Hemoglobin 29.2 pg (26.7-34.0); Mean Corpuscular Volume 94.9 fL (81.0-99.0); Mean Platelet Volume 11.1 fL (9.5-13.5); Monocytes Absolute Auto 0.8 10^3/uL (0.3-0.8); Monocytes Percent Auto 5.6 % (1.7-12.0); Neutrophils Absolute Auto 11.7 10^3/uL (1.4-6.5); Neutrophils Percent Auto 87.4 % (43.0-75.0); Platelet Count 217 10^3/uL (150-450); Red Blood Count 3.56 10^6/uL (4.20-5.40); Red Cell Distribution Width 14.3 % (11.0-15.0); White Blood Count 13.4 10^3/uL (4.0-11.0)
[2023-10-24 06:04] LABS: Alanine Aminotransferase 24 U/L (14-59); Albumin Globulin Ratio 0.7; Albumin Level 2.4 g/dL (3.4-5.0); Alkaline Phosphatase 85 U/L (46-116); Anion Gap 9.6; Aspartate Amino Transferase 20 U/L (15-37); BUN Creatinine Ratio 23.6; Bilirubin Total 0.1 mg/dL (0.2-1.0); Calcium 9.8 mg/dL (8.5-10.1); Carbon Dioxide 31.4 mmol/L (21.0-32.0); Chloride 108 mmol/L (98-107); Estimated GFR (African America >60 (>=60); Estimated GFR (Non-African Ame >60 (>=60); Globulin 3.4 g/dL; Glucose 178 mg/dL (74-106); Sodium 145 mmol/L (136-145); Total Protein 5.8 g/dL (6.4-8.2)
[2023-10-24] MEDS: AZITHROMYCIN 250 MG TABLET 500 MG PO (09:24)
[2023-10-24] MEDS: GUAIFENESIN 600 MG TAB.ER.12H PO (09:24)
[2023-10-24] MEDS: METOPROLOL SUCCINATE 25 MG TAB.ER.24H PO (09:24)
--- NOTE | 2023-10-24 09:38 | P.DS_ITS ---
<Statement entered by Shaikh Champ MD - 10/24/23 10:58> This documentation has been reviewed and approved. Patient seen and examined. Case discussed with Selene Agree with her clinical decision making and treatment plan as outline in her H&P Patient feels sig better today. She feels her cough and SOB while still present has improved and she feels comfortable to go home. Patient will be discharged home on oral abx and prednisone taper. Exam: Comfortable, NAD Normal RR, diminished air entry, wheezing but sig improved from before Normal HR, no murmur Medical stable for discharge. DS: Providers Provider Date of admission: 10/22/23 16:58 Primary care physician: Suzanne Cabral MD Consults: 10/22/23 16:13 Occupational Therapy Eval and Treat Routine Reason for consultation: Ambulatory dysfunction/weakness Physical Therapy Eval and Treat Routine Reason for consultation: Ambulatory dysfunction/weakness Discharging clinician: Selene Turner DS: Diagnosis Discharge Diagnosis (1) Right lower lobe pneumonia: (2) COPD exacerbation: (3) Sepsis: (4) Tachycardia: DS: Summary Hospital Course Hospital Course: The patient was admitted with sepsis from RLL pneumonia and an acute COPD exacerbation. She also had acute on chronic sinus tachycardia. She was treated with IV fluids, IVPB Rocephin and azithromycin for CAP, scheduled breathing treatments with Xopenex/ipratropium, and high-dose IV steroids. Her sepsis resolved and her respiratory status returned to her baseline advanced COPD status with these interventions. She continues to require O2 supplementation at night and as needed as previously prescribed at home. She has mild leukocytosis on the day of discharge, but this is suspected secondary to glucocorticoid administration. She remains afebrile and reports feeling much improved. She is being discharged home in stable condition. She should follow-up with her PCP in 3 to 5 days. She was prescribed a steroid taper and cefdinir at discharge to complete a 10-day treatment course of antibiotics. Time Spent with Patient Time attestation: Total time spent providing and/or coordinating discharge services: Time spent: greater than 30 minutes Specific discharge activities: Physical exam, discussion of discharge plan, questions answered. Exam Constitutional Vital Signs, click to edit/add: Last Vital Signs Temp 97.6 F 10/24/23 08:00 Pulse 81 10/24/23 08:00 Resp 18 10/24/23 08:00 BP 115/66 10/24/23 08:00 Pulse Ox 94 L 10/24/23 09:22 O2 Del Method Nasal Cannula 10/24/23 09:22 O2 Flow Rate 2 10/24/23 09:22 Common normals: no apparent distress, oriented x3 and alert General appearance: cooperative Orientation/consciousness: Yes awake HENMT Common normals: normocephalic and head/scalp atraumatic Eye Common normals: PERRL, EOMs intact bilaterally, conjunctivae normal and no scleral icterus Neck & C-Spine Common normals: no JVD Respiratory Common normals: normal respiratory effort and no use of accessory muscles Effort & inspection: able to speak in complete sentences and symmetric chest movement Auscultation: wheezes (very faint, scattered insp ) and diminished lung sounds (Throughout, improved air exchange) Cardio Common normals: no JVD, regular rate, regular rhythm, S1 normal heart sound, S2 normal heart sound, no murmurs and peripheral pulses 2+ throughout GI Common normals: Normal to inspection, nondistended, normoactive bowel sounds present, soft to palpation and non-tender Bladder/kidney exam: bladder normal to palpation Extremity Common normals: normal to inspection, full ROM, normal capillary refill and no pedal edema General: no clubbing and no cyanosis Neuro Common normals: moves all extremities, no focal motor deficits and no sensory deficits noted Speech: speech normal Psych Common normals: mental status grossly normal and activity/motor behavior normal DS: Data Data Completed and Pending Labs on day of discharge: Labs from last 24 hours 10/24/23 04:16 WBC 13.4 H RBC 3.56 L Hgb 10.4 L Hct 33.8 L MCV 94.9 MCH 29.2 MCHC 30.8 RDW 14.3 Plt Count 217 MPV 11.1 Neut % (Auto) 87.4 H Lymph % (Auto) 4.3 L [place] % (Auto) 5.6 Eos % (Auto) 0.0 L Baso % (Auto) 0.2 Neut # (Auto) 11.7 H Lymph # (Auto) 0.6 L [place] # (Auto) 0.8 Eos # (Auto) 0.0 Baso # (Auto) 0.0 Abs Immat Gran (auto) 0.33 H Imm/Tot Granulo (auto) 2.5 H Sodium 145 Potassium 4.0 Chloride 108 H Carbon Dioxide 31.4 Anion Gap 9.6 BUN 21.0 H Creatinine 0.89 Est GFR ( Amer) >60 Est GFR (Non-Af Amer) >60 BUN/Creatinine Ratio 23.6 Glucose 178 H Calcium 9.8 Total Bilirubin 0.1 L AST 20 ALT 24 Alkaline Phosphatase 85 Total Protein 5.8 L Albumin 2.4 L Globulin 3.4 Albumin/Globulin Ratio 0.7 Imaging Chest x-ray: Attestation: I have reviewed the pertinent imaging results. Radiologist's impression: IMPRESSION: Minimal right basilar infiltrate Discharge Plan Discharge Disposition: Home, Self-Care Condition: Good Discharge Medications: New prednisone 10 mg tablet See Rx Instructions .ROUTE .COMPLEX 12 Days Qty: 42 0RF Rx Instructions: 6 tabs daily x 2 days, then 5 tabs daily x 2 days, then 4 tabs daily x 2 days, then 3 tabs daily x 2 days, then 2 tabs daily x 2 days, then 1 tab daily x 2 days, then STOP cefdinir 300 mg capsule 300 mg PO BID 7 Days Qty: 14 0RF Continued albuterol sulfate 90 mcg/actuation HFA aerosol inhaler 2 puff INHALATION Q4H PRN (Reason: shortness of breath or wheezing) metoprolol succinate 25 mg tablet extended release 24 hr 25 mg PO QAM Print Language: [place] Patient Instructions: Prednisone (By mouth), Cefdinir (By mouth), COPD (Chronic Obstructive Pulmonary Disease) (DC), Pneumonia (DC) Forms: Portal Instructions Follow Up Appointments: Dr. Cabral on October 28 at 10am.
--- NOTE | 2023-10-24 09:45 | CM.NOTE ---
Rounds made with Dr. Oakes. Plan for discharge today. Casi verbalizes understanding.
--- NOTE | 2023-10-25 15:27 | CM.DCFOLLOWU ---
Person spoke with: Casi How are you feeling? Much better How is your pain? No pain Did you understand your discharge instructions? Yes Do you have any questions about your discharge instructions? No Were you given any prescriptions at discharge? Yes Were you able to get your prescriptions filled? Yes Do you understand how to take your medications as ordered? Yes Do you have any questions about your follow up appointment and do you plan to keep your follow up appointment? I had to reschedule appt but I do plan on going. Is there anything else that you would like to discuss? No Questions/Comments/Concerns/Other:
== END 2023-10-24 10:47 | disposition home or self-care (01) | DRG 871 ==
LOC: ER 16:15 → MS 17:12
PROVIDERS: Physician Assistant; Admitting Provider Internal Medicine; Emergency Provider Emergency Medicine; PCP Family Medicine; Visit Provider Internal Medicine
DX: A41.9 Sepsis, unspecified organism (principal); E43 Unspecified severe protein-calorie malnutrition; J18.9 Pneumonia, unspecified organism; J96.21 Acute and chronic respiratory failure with hypoxia; J44.1 Chronic obstructive pulmonary disease with (acute) exacerbation; J44.0 Chronic obstructive pulmonary disease with (acute) lower respiratory infection; Z20.822 Contact with and (suspected) exposure to COVID-19; R00.0 Tachycardia, unspecified; Z99.81 Dependence on supplemental oxygen; F17.210 Nicotine dependence, cigarettes, uncomplicated; Z79.899 Other long term (current) drug therapy; Z90.89 Acquired absence of other organs; Z68.22 Body mass index [BMI] 22.0-22.9, adult
CPT/HCPCS: 0202U; 36415; 71045; 80053; 82800; 83605; 83880; 84484; 85025; 87040; 87070; 87804; 87811; 93005; 94640; 94761; 96365; 96372; 96375; 96376; 97165; 99285; J2919

== ENCOUNTER 2023-12-11 12:36 | Outpatient (OUT) | payer MEDICARE, SELFPAY ==
--- NOTE | 2023-12-11 12:41 | CT_ITS ---
The [address] [address] Patient Name: TOM MCDANIELS MRN: [id number] date: 1945 Sex: F Assigned Patient Location: CT Current Patient Location: CT Accession/Order Number: [id number] Exam Date: 12/11/2023 12:47 Report Date: 12/11/2023 13:57 At the request of: ARNIE JACOBS Procedure: CT chest wo con EXAMINATION: CT chest wo con, 12/11/2023 12:47 PM EDT HISTORY: Multiple Pulmonary Nodules COMPARISON: 06/13/2023 TECHNIQUE: CT scan of the chest was performed without IV contrast. CT dose reduction technique was used, including Automated Exposure Control. FINDINGS: CORONARY ARTERIES: Coronary calcifications are mild. FINDINGS: Heart size is normal. Trace pericardial effusion. Normal thoracic vasculature. No thoracic lymphadenopathy. Mild mucoid debris is seen in the trachea and mainstem bronchi. Scattered mild endobronchial mucous plugging throughout the small airways. No pleural effusion or pneumothorax. Lungs are hyperinflated. There is mild centrilobular emphysema. Mild multifocal areas of tree-in-bud nodularity, with a mid lung predominance compatible with chronic bronchitis and mild infectious bronchiolitis associated with endobronchial mucous plugging. An index 4 mm nodule in the left upper lobe peripherally on prior is no longer seen. Bones and soft tissues: No suspicious bone findings. Partially imaged upper abdomen: Limited. CT/CT chest wo con IMPRESSION: Findings of chronic bronchitis and mild, multifocal recurrent infectious bronchiolitis similar to prior. An index 4 mm nodule in the left upper lobe peripherally is resolved. Lung-RADS 2 FINDINGS: Solid nodule(s): <6 mm or new <4 mm; part solid nodule(s) <6 mm total diameter on baseline screening; nonsolid nodule(s) (GGN): <20 mm or greater than/equal to 20 mm and unchanged or slowly growing; category 3 or 4 nodules unchanged for greater than/equal to 3 months. MANAGEMENT: Continue annual screening with LDCT in 12 months. Electronically authenticated by: KEYSHA BUSTILLOS Date: 12/11/2023 13:57
--- OUTSIDE RECORDS SUMMARY | 2023-12-11 12:47 | XMS_ITS | CCD ---
Author Organization [facility] Care Team Providers Care Pleating Machine Operator Name Role Phone Suzanne Glynn Unavailable REYNALDO .ARNIE Attending Unavailable REYNALDO ., ARNIE Admitting Unavailable GRETTA, DR SUZANNE Khan Primary Care Unavailable JAKE, DR JOSE ROBERTO Oliver Consulting Unavailable REYNALDO ., ARNIE Consulting Unavailable GRETTA, DR SUZANNE Khan Primary [...] Consulting Unavailable MD Suzanne Glynn Attending Provider Suzanne Glynn Attending Unavailable Suzanne Glynn Admitting Unavailable KATIE BERMUDEZ Attending Unavailable KATIE BERMUDEZ Attending Unavailable DEBRA KAY Attending Unavailable Medications Current Medications Medication Drug Class(es) Dates Sig (Normalized) Sig (Original) [id number] 200 actuat albuterol 0.09 mg/actuat metered dose inhaler (5 sources) beta2-Adrenergic Agonist Start: 09-23-2023 take 2 [...] Mouth bid for 10 day(s) Jun, Active cefdinir 300 mg oral capsule (1 source) Cephalosporin Antibacterial Start: 10-30-2023 take 300 mg by mouth twice daily Cefdinir Active 300 MG PO Twice daily October 30, 2023 12:00am metoprolol tartrate 25 mg oral tablet (1 source) beta-Adrenergic Lyudmila Start: 10-30-2023 take 25 mg by mouth once daily Metoprolol Tartrate Active 25 MG PO Daily October 30, 2023 12:00am predniSONE 10 mg oral tablet (5 sources) Start: 10-30-2023 take 10 mg by mouth once daily Prednisone Active 10 MG PO Daily October 30, 2023 12:00am Start: 06-21-2014 predniSONE 20 mg 3 tabs [...] Translations: [UNSPECIFIED ATRIAL FIBRILLATION] Onset: 2022 Chronic Chronic obstructive pulmonary disease and bronchiectasis (16 sources) Pulmonary emphysema; Translations: [Other emphysema] Onset: 07-16-2022 Chronic Essential hypertension (2 sources) Essential (primary) hypertension; Translations: [Essential (primary) hypertension] Onset: 03-12-2023 Chronic Genitourinary symptoms and ill-defined conditions (2 sources) Dysuria; Translations: [Dysuria] Onset: 04-11-2023 Episodic Other aftercare (1 source) Other supervisor intermediates (current) drug therapy; Translations: [OTH NURSING HOME CURRENT DRUG THERAPY] Onset: 11-14-2022 Episodic Other lower respiratory disease (1 source) Personal history of pneumonia (recurrent); Translations: [PERSONAL HX OF PNEUMONIA RECURRENT] Onset: 11-14-2022 Episodic Other lower respiratory disease (4 sources) Shortness of breath; Translations: [SHORTNESS OF BREATH] Onset: 2022 Episodic Pneumonia (except that caused by tuberculosis or sexually transmitted disease) (2 sources) Pneumonia; Translations: [Pneumonia, unspecified organism] 10-30-2023 Episodic Respiratory failure; insufficiency; arrest (adult) (1 [...] unspecified; Translations: [Supraventricular tachycardia, unspecified] Onset: 05-10-2023 Past or Other Problems Problem Classification Problem Date Documented Date Episodic/Chronic Acute bronchitis (1 source) Acute bronchitis, unspecified; Translations: [ACUTE BRONCHITIS UNSPECIFIED] Onset: 07-16-2022 Episodic Cardiac dysrhythmias (5 sources) Tachycardia, unspecified; Translations: [TACHYCARDIA UNSPECIFIED] Onset: 11-04-2022 Episodic Other lower respiratory disease (1 source) [...] Test Name Value Interpretation Reference Range Facility 36on 11-14-2023 36 Please let her know I reviewed her LOOP recorder with Dr. Coyle. No evidence of a.fib at this time - will continue to monitor. She has had some episodes of SVT along with elevated heart rates. Would like for her to increase her metoprolol to 37.5mg daily (1.5 tablets of her current Rx) and follow-up in 6 months or sooner if needed. Thanks! Normal [facility] Telephoneon 11-14-2023 Telephone [id number] Theresa Frazierjohanny Khan 1945 F Date Provider Department Center 11/14/2023 DEBRA NEVILLE Family History Problem Relation Age of Onset Dementia Mother Heart attack Father 52 Liver cancer Brother Stroke Brother Family Status - Relation Status Age at Mother Father Brother Normal [facility] Office Visiton 11-12-2023 Follow-up visit [id number] Theresa Frazierjohanny Khan 1945 Date Provider Department Center 11/12/2023 DEBRA NEVILLE Family History Problem Relation Age of Onset Dementia Mother Heart attack Father 52 Liver cancer Brother Stroke Brother Family Status - Relation Status Age at Mother Father Brother Level of Service:08885 ID OFFICE/OUTPATIENT ESTABLISHED MOD MDM 30 MIN Reason for Visit and Comments: Palpitations [082626] Normal [facility] Basophils Auto (Bld) [#/Vol] on 10-24-2023 Basophils (Bld) [#/Vol] 0.0 10 3/uL 0.0-0.1 [facility] Basophils/100 WBC Auto (Bld) on 10-24-2023 Basophils/100 WBC (Bld) 0.2 % 0.2-2.0 [facility] Eosinophils/100 WBC Auto (Bl d)on 10-24-2023 Eosinophils/100 WBC (Bld) 0.0 % 0.9-7.0 [facility] Erythrocyte distribution wid th Auto (RBC) [Ratio]on 10-24-2023 Erythrocyte distribution width (RBC) [Ratio] 14.3 % 11.0-15.0 [facility] Estimated glomerular filtrat ion rate (GFR) non- Americanon 10-24-2023 GFR/1.73 sq M.predicted among non-blacks MDRD (S/P/Bld) [Vol rate/Area] mL/min/{1.73_m2} >=60 [facility] Globulin Calc (S) [Mass/Vol] on 10-24-2023 Globulin (S) [Mass/Vol] 3.4 g/dL [facility] Hematocrit Auto (Bld) [Volum e fraction]on 10-24-2023 Hematocrit (Bld) [Volume fraction] 33.8 % 36.0-48.0 [facility] Hemoglobin [Mass/volume] in Bloodon 10-24-2023 Hemoglobin (Bld) [Mass/Vol] 10.4 g/dL 12.0-16.0 [facility] Laboratory - Chemistry and C hemistry - challengeon 10-24-2023 Albumin [Mass/Vol] 2.4 g/dL 3.4-5.0 [facility] ALP [Catalytic activity/Vol] 85 U/L 46-116 [facility] ALT [Catalytic activity/Vol] 24 U/L 14-59 [facility] AST [Catalytic activity/Vol] 20 U/L 15-37 [facility] Bilirubin [Mass/Vol] 0.1 mg/dL 0.2-1.0 [facility] Calcium [Mass/Vol] 9.8 mg/dL 8.5-10.1 [facility] Chloride [Moles/Vol] 108 mmol/L 98-107 [facility] CO2 [Moles/Vol] 31.4 mmol/L 21.0-32.0 [facility] Creatinine [Mass/Vol] 0.89 mg/dL 0.55-1.[address] [facility] GFR/1.73 sq M.predicted MDRD (S/P/Bld) [Vol rate/Area] mL/min/{1.73_m2} >=60 [facility] Glucose [Mass/Vol] 178 mg/dL 74-106 [facility] Potassium [Moles/Vol] 4.0 mmol/L 3.5-5.[address] [facility] Protein [Mass/Vol] 5.8 g/dL 6.4-8.2 [facility] Sodium [Moles/Vol] 145 mmol/L 136-145 [facility] Urea nitrogen [Mass/Vol] 21.0 mg/dL 7.0-18.0 [facility] Urea nitrogen/Creatinine [Mass ratio] 23.6 mg/mg [facility] Laboratory - Hematology and Cell countson 10-24-2023 Immature granulocytes/100 WBC (Bld) 2.5 % 0.0-0.5 [facility] Leukocytes [#/volume] correc lucia for nucleated erythrocytes in Blood by Automated counon 10-24-2023 WBC corrected for nucl RBC Auto (Bld) [#/Vol] 13.4 10 3/uL 4.0-11.0 [facility] Lymphocytes Auto (Bld) [#/Vo l]on 10-24-2023 Lymphocytes (Bld) [#/Vol] 0.6 10 3/uL 1.2-3.8 [facility] Lymphocytes/100 WBC Auto (Bl d)on 10-24-2023 Lymphocytes/100 WBC (Bld) 4.3 % 20.5-60.0 [facility] MCH Auto (RBC) [Entitic mass ]on 10-24-2023 MCH (RBC) [Entitic mass] 29.2 pg 26.7-34.0 [facility] MCHC Auto (RBC) [Mass/Vol]on 10-24-2023 MCHC (RBC) [Mass/Vol] 30.8 g/dL 29.9-35.[address] [facility] MCV Auto (RBC) [Entitic vol] on 10-24-2023 MCV (RBC) [Entitic vol] 94.9 fL 81.0-99.0 [facility] Monocytes Auto (Bld) [#/Vol] on 10-24-2023 Monocytes (Bld) [#/Vol] 0.8 10 3/uL 0.3-0.8 [facility] Monocytes/100 WBC Auto (Bld) on 10-24-2023 Monocytes/100 WBC (Bld) 5.6 % 1.7-12.0 [facility] Neutrophils Auto (Bld) [#/Vo l]on 10-24-2023 Neutrophils (Bld) [#/Vol] 11.7 10 3/uL 1.4-6.5 [facility] Neutrophils/100 WBC Auto (Bl d)on 10-24-2023 Neutrophils/100 WBC (Bld) 87.4 % 43.0-75.0 [facility] No Panel Informationon 10-23 Eosinophils # (Auto) 0.0 10 3/uL 0.0-0.[address] [facility] Immature Granulocyte # (Auto) 0.33 10 3/uL 0.00-0.03 [facility] Platelet mean volume Auto (B ld) [Entitic vol]on 10-24-2023 Platelet mean volume (Bld) [Entitic vol] 11.1 fL 9.5-13.5 [facility] Platelets Auto (Bld) [#/Vol] on 10-24-2023 Platelets (Bld) [#/Vol] 217 10 3/uL 150-450 [facility] RBC Auto (Bld) [#/Vol]on RBC (Bld) [#/Vol] 3.56 10 6/uL 4.20-5.40 [facility] Serum or plasma albumin/glob ulin mass ratioon 10-24-2023 Albumin/Globulin [Mass ratio] 0.7 {ratio} [facility] Serum or plasma anion gap de terminationon 10-24-2023 Anion gap [Moles/Vol] 9.6 mmol/L [facility] Basophils Auto (Bld) [#/Vol] on 10-23-2023 Basophils (Bld) [#/Vol] 0.0 10 3/uL 0.0-0.1 [facility] Basophils/100 WBC Auto (Bld) on 10-23-2023 Basophils/100 WBC (Bld) 0.2 % 0.2-2.0 [facility] Eosinophils/100 WBC Auto (Bl d)on 10-23-2023 Eosinophils/100 WBC (Bld) 0.0 % 0.9-7.0 [facility] Erythrocyte distribution wid th Auto (RBC) [Ratio]on 10-23-2023 Erythrocyte distribution width (RBC) [Ratio] 14.0 % 11.0-15.0 [facility] Estimated glomerular filtrat ion rate (GFR) non- Americanon 10-23-2023 GFR/1.73 sq M.predicted among non-blacks MDRD (S/P/Bld) [Vol rate/Area] 53 mL/min/{1.73_m2} >=60 [facility] Globulin Calc (S) [Mass/Vol] on 10-23-2023 Globulin (S) [Mass/Vol] 3.6 g/dL [facility] Hematocrit Auto (Bld) [Volum e fraction]on 10-23-2023 Hematocrit (Bld) [Volume fraction] 34.2 % 36.0-48.0 [facility] Hemoglobin [Mass/volume] in Bloodon 10-23-2023 Hemoglobin (Bld) [Mass/Vol] 10.5 g/dL 12.0-16.0 [facility] Laboratory - Chemistry and C hemistry - challengeon 10-23-2023 Albumin [Mass/Vol] 2.4 g/dL 3.4-5.0 [facility] ALP [Catalytic activity/Vol] 92 U/L 46-116 [facility] ALT [Catalytic activity/Vol] 19 U/L 14-59 [facility] AST [Catalytic activity/Vol] 14 U/L 15-37 [facility] Bilirubin [Mass/Vol] 0.2 mg/dL 0.2-1.0 [facility] Calcium [Mass/Vol] 9.4 mg/dL 8.5-10.1 [facility] Chloride [Moles/Vol] 105 mmol/L 98-107 [facility] CO2 [Moles/Vol] 26.7 mmol/L 21.0-32.0 [facility] Creatinine [Mass/Vol] 1.02 mg/dL 0.55-1.[address] [facility] GFR/1.73 sq M.predicted MDRD (S/P/Bld) [Vol rate/Area] mL/min/{1.73_m2} >=60 [facility] Glucose [Mass/Vol] 223 mg/dL 74-106 [facility] Potassium [Moles/Vol] 3.7 mmol/L 3.5-5.[address] [facility] Protein [Mass/Vol] 6.0 g/dL 6.4-8.2 [facility] Sodium [Moles/Vol] 140 mmol/L 136-145 [facility] Urea nitrogen [Mass/Vol] 15.0 mg/dL 7.0-18.0 [facility] Urea nitrogen/Creatinine [Mass ratio] 14.7 mg/mg [facility] Laboratory - Hematology and Cell countson 10-23-2023 Immature granulocytes/100 WBC (Bld) 0.7 % 0.0-0.5 [facility] Leukocytes [#/volume] correc lucia for nucleated erythrocytes in Blood by Automated counon 10-23-2023 WBC corrected for nucl RBC Auto (Bld) [#/Vol] 6.0 10 3/uL 4.0-11.0 [facility] Lymphocytes Auto (Bld) [#/Vo l]on 10-23-2023 Lymphocytes (Bld) [#/Vol] 0.5 10 3/uL 1.2-3.8 [facility] Lymphocytes/100 WBC Auto (Bl d)on 10-23-2023 Lymphocytes/100 WBC (Bld) 7.8 % 20.5-60.0 [facility] MCH Auto (RBC) [Entitic mass ]on 10-23-2023 MCH (RBC) [Entitic mass] 29.3 pg 26.7-34.0 [facility] MCHC Auto (RBC) [Mass/Vol]on 10-23-2023 MCHC (RBC) [Mass/Vol] 30.7 g/dL 29.9-35.[address] [facility] MCV Auto (RBC) [Entitic vol] on 10-23-2023 MCV (RBC) [Entitic vol] 95.5 fL 81.0-99.0 [facility] Monocytes Auto (Bld) [#/Vol] on 10-23-2023 Monocytes (Bld) [#/Vol] 0.1 10 3/uL 0.3-0.8 [facility] Monocytes/100 WBC Auto (Bld) on 10-23-2023 Monocytes/100 WBC (Bld) 1.2 % 1.7-12.0 [facility] Neutrophils Auto (Bld) [#/Vo l]on 10-23-2023 Neutrophils (Bld) [#/Vol] 5.4 10 3/uL 1.4-6.5 [facility] Neutrophils/100 WBC Auto (Bl d)on 10-23-2023 Neutrophils/100 WBC (Bld) 90.1 % 43.0-75.0 [facility] No Panel Informationon 10-22 Eosinophils # (Auto) 0.0 10 3/uL 0.0-0.[address] [facility] Immature Granulocyte # (Auto) 0.04 10 3/uL 0.00-0.03 [facility] Platelet mean volume Auto (B ld) [Entitic vol]on 10-23-2023 Platelet mean volume (Bld) [Entitic vol] 11.0 fL 9.5-13.5 [facility] Platelets Auto (Bld) [#/Vol] on 10-23-2023 Platelets (Bld) [#/Vol] 182 10 3/uL 150-450 [facility] RBC Auto (Bld) [#/Vol]on RBC (Bld) [#/Vol] 3.58 10 6/uL 4.20-5.40 [facility] Serum or plasma albumin/glob ulin mass ratioon 10-23-2023 Albumin/Globulin [Mass ratio] 0.7 {ratio} [facility] Serum or plasma anion gap de terminationon 10-23-2023 Anion gap [Moles/Vol] 12.0 mmol/L [facility] Basophils Auto (Bld) [#/Vol] on 10-22-2023 Basophils (Bld) [#/Vol] 0.0 10 3/uL 0.0-0.1 [facility] Basophils/100 WBC Auto (Bld) on 10-22-2023 Basophils/100 WBC (Bld) 0.5 % 0.2-2.0 [facility] Eosinophils/100 WBC Auto (Bl d)on 10-22-2023 Eosinophils/100 WBC (Bld) 0.3 % 0.9-7.0 [facility] Erythrocyte distribution wid th Auto (RBC) [Ratio]on 10-22-2023 Erythrocyte distribution width (RBC) [Ratio] 13.7 % 11.0-15.0 [facility] Estimated glomerular filtrat ion rate (GFR) non- Americanon 10-22-2023 GFR/1.73 sq M.predicted among non-blacks MDRD (S/P/Bld) [Vol rate/Area] 55 mL/min/{1.73_m2} >=60 [facility] Globulin Calc (S) [Mass/Vol] on 10-22-2023 Globulin (S) [Mass/Vol] 4.7 g/dL [facility] Hematocrit Auto (Bld) [Volum e fraction]on 10-22-2023 Hematocrit (Bld) [Volume fraction] 42.0 % 36.0-48.0 [facility] Hemoglobin [Mass/volume] in Bloodon 10-22-2023 Hemoglobin (Bld) [Mass/Vol] 13.1 g/dL 12.0-16.0 [facility] Laboratory - Chemistry and C hemistry - challengeon 10-22-2023 Albumin [Mass/Vol] 3.2 g/dL 3.4-5.0 [facility] ALP [Catalytic activity/Vol] 125 U/L 46-116 [facility] ALT [Catalytic activity/Vol] 29 U/L 14-59 [facility] AST [Catalytic activity/Vol] 24 U/L 15-37 [facility] Bilirubin [Mass/Vol] 0.4 mg/dL 0.2-1.0 [facility] Calcium [Mass/Vol] 10.0 mg/dL 8.5-10.1 [facility] Chloride [Moles/Vol] 100 mmol/L 98-107 [facility] CO2 [Moles/Vol] 33.0 mmol/L 21.0-32.0 [facility] Creatinine [Mass/Vol] 0.99 mg/dL 0.55-1.[address] [facility] GFR/1.73 sq M.predicted MDRD (S/P/Bld) [Vol rate/Area] mL/min/{1.73_m2} >=60 [facility] Glucose [Mass/Vol] 89 mg/dL 74-106 [facility] Lactate [Moles/Vol] 1.4 mmol/L 0.4-2.0 [facility] Natriuretic peptide B (Bld) [Mass/Vol] 339.0 pg/mL <=1800.0 [facility] Potassium [Moles/Vol] 4.3 mmol/L 3.5-5.[address] [facility] Protein [Mass/Vol] 7.9 g/dL 6.4-8.2 [facility] Sodium [Moles/Vol] 140 mmol/L 136-145 [facility] Urea nitrogen [Mass/Vol] 9.0 mg/dL 7.0-18.0 [facility] Urea nitrogen/Creatinine [Mass ratio] 9.1 mg/mg [facility] Laboratory - Hematology and Cell countson 10-22-2023 Immature granulocytes/100 WBC (Bld) 0.3 % 0.0-0.5 [facility] Laboratory - Microbiology an d Antimicrobial susceptibilityon 10-22-2023 SARS-CoV-2 (COVID-19) RNA YESSY+probe Ql (Unsp spec) Not detected NOT DETECTE [facility] SARS-CoV-2 (COVID-19) RNA YESSY+probe Ql (Unsp spec) Negative NEGATIVE [facility] Comment on above: This test has not be en FDA cleared or approved, but has beenauthorized by the FDA under an Emergency Use Authorization(EUA) for use by authorized laboratories certified underIA that meet the requirements to perform moderate or highcomplexity testing. This test has been authorized only forthe detection of proteins from SARS-CoV-2, not for any otherviruses or pathogens. The emergency use of this test isauthorized for the duration of the declaration thatcircumstances exist justifying the authorization ofemergency use of in vitro diagnostic tests for detectionand/or diagnosis of Covid-19 under section 564(b)(1) of theAct, 21 U.S.C. 360bbb-3(b)(1), unless the declaration isterminated or authorization is revoked sooner. Leukocytes [#/volume] correc lucia for nucleated erythrocytes in Blood by Automated counon 10-22-2023 WBC corrected for nucl RBC Auto (Bld) [#/Vol] 8.8 10 3/uL 4.0-11.0 [facility] Lymphocytes Auto (Bld) [#/Vo l]on 10-22-2023 Lymphocytes (Bld) [#/Vol] 0.9 10 3/uL 1.2-3.8 [facility] Lymphocytes/100 WBC Auto (Bl d)on 10-22-2023 Lymphocytes/100 WBC (Bld) 10.6 % 20.5-60.0 [facility] MCH Auto (RBC) [Entitic mass ]on 10-22-2023 MCH (RBC) [Entitic mass] 29.4 pg 26.7-34.0 [facility] MCHC Auto (RBC) [Mass/Vol]on 10-22-2023 MCHC (RBC) [Mass/Vol] 31.2 g/dL 29.9-35.[address] [facility] MCV Auto (RBC) [Entitic vol] on 10-22-2023 MCV (RBC) [Entitic vol] 94.2 fL 81.0-99.0 [facility] Monocytes Auto (Bld) [#/Vol] on 10-22-2023 Monocytes (Bld) [#/Vol] 0.9 10 3/uL 0.3-0.8 [facility] Monocytes/100 WBC Auto (Bld) on 10-22-2023 Monocytes/100 WBC (Bld) 9.7 % 1.7-12.0 [facility] Neutrophils Auto (Bld) [#/Vo l]on 10-22-2023 Neutrophils (Bld) [#/Vol] 6.9 10 3/uL 1.4-6.5 [facility] Neutrophils/100 WBC Auto (Bl d)on 10-22-2023 Neutrophils/100 WBC (Bld) 78.6 % 43.0-75.0 [facility] No Panel Informationon 10-21 Adenovirus (PCR) Not detected NOT DETECTE [facility] Bordetella parapertussis DNA (PCR) Not detected NOT DETECTE [facility] Bordetella pertussis (PCR)(Misc) Not detected NOT DETECTE [facility] Chlamydia pneumoniae DNA (PCR) Not detected NOT DETECTE [facility] Coronavirus Type 229E (PCR) Not detected NOT DETECTE [facility] Coronavirus Type HKU1 (PCR) Not detected NOT DETECTE [facility] Coronavirus Type NL63 (PCR) Not detected NOT DETECTE [facility] Coronavirus Type OC43 (PCR) Not detected NOT DETECTE [facility] Enterovirus/Rhinovirus (PCR) Not detected NOT DETECTE [facility] Human Metapneumovirus (PCR) Not detected NOT DETECTE [facility] Influenza A (PCR) Not detected NOT DETECTE [facility] Influenza Type B (RT-PCR) Not detected NOT DETECTE [facility] Mycoplasma pneumoniae (PCR) Not detected NOT DETECTE [facility] Parainfluenza Type 1 (PCR) Not detected NOT DETECTE [facility] Parainfluenza Type 2 (PCR) Not detected NOT DETECTE [facility] Parainfluenza Type 3 (PCR) Not detected NOT DETECTE [facility] Parainfluenza Type 4 (PCR) Not detected NOT DETECTE [facility] Respiratory Syncytial Virus (PCR) Not detected NOT DETECTE [facility] Bedside Influenza Type A Antigen Negative [facility] Comment on above: Negative for Flu A p rotein antigen. Infection due to Flu Acannot be ruled out. Flu A antigen in the sample may bebelow the detection limit of the test. Bedside Influenza Type B Antigen Negative [facility] Comment on above: Negative for Flu B p rotein antigen. Infection due to Flu Bcannot be ruled out. Flu B antigen in the sample may bebelow the detection limit of the test. Eosinophils # (Auto) 0.0 10 3/uL 0.0-0.[address] [facility] Immature Granulocyte # (Auto) 0.03 10 3/uL 0.00-0.03 [facility] Troponin I High Sensitivity <4.0 pg/mL 4.0-51.3 [facility] Comment on above: CUT-OFF POINTS HAVE BEEN ESTABLISHED BASED ON THE FOURTHUNIVERSAL DEFINITION OF MYOCARDIAL INFARCTION. THE UPPERREFERENCE LIMIT (URL) OF TROPONIN, DEFINED THE 99THPERCENTILE OF cTnI DISTRIBUTION IN A REFERENCE POPULATION,HAS BEEN CONFIRMED THE DECISION THRESHOLD FOR MIDIAGNOSIS.99TH PERCENTILE = 51.4 PG/MLNOTE: HIGH-SENSITIVITY TROPONIN ASSAY IS NOT INTENDED TO BEUSED IN ISOLATION BUT SHOULD BE INTERPRETED IN CONJUNCTIONWITH OTHER DIAGNOSTIC AND CLINICAL INFORMATION. Venous Blood Partial Pressure CO2 52.7 mm[Hg] 40.0-52.0 [facility] Venous Blood pH 7.414 7.330-7.430 [facility] No Panel InformationOrdered By: Suzanne Glynn on 10-22-2023 Blood Culture 1 [facility] Blood Culture 2 [facility] Platelet mean volume Auto (B ld) [Entitic vol]on 10-22-2023 Platelet mean volume (Bld) [Entitic vol] 10.4 fL 9.5-13.5 [facility] Platelets Auto (Bld) [#/Vol] on 10-22-2023 Platelets (Bld) [#/Vol] 247 10 3/uL 150-450 [facility] RBC Auto (Bld) [#/Vol]on RBC (Bld) [#/Vol] 4.46 10 6/uL 4.20-5.40 [facility] Serum or plasma albumin/glob ulin mass ratioon 10-22-2023 Albumin/Globulin [Mass ratio] 0.7 {ratio} [facility] Serum or plasma anion gap de terminationon 10-22-2023 Anion gap [Moles/Vol] 11.3 mmol/L [facility] Office Visiton 05-10-2023 Follow-up visit [id number] Casi Frazier 1945 F Date Provider Department Center 05/10/2023 KATIE GOLDEN CARD [facility] Family History Problem Relation Age of Onset Dementia Mother Heart attack Father 52 Liver cancer Brother Stroke Brother Family Status - Relation Status Age at Mother Father Brother Level of Service:[id number] ID OFFICE/OUTPATIENT ESTABLISHED MOD MDM 30-39 MIN Reason for Visit and Comments: Follow-up [[id number]] Normal [facility] Urine Cultureon 04-11-2023 Bacteria identified Cx Nom (U) 75,000 colonies/ml mixed bacterial skin contaminants 2 Days PERFORMED BY: [facility] [address] [place] [address] PATHOLOGIST [employer] INTERN ELOISE RHOADES M.D. Normal [facility] Comment on above: Performed By: #### C UU #### [facility] [address] [id number] [facility] Office Visiton 02-26-2023 Follow-up visit [id number] Casi Frazier 1945 F Date Provider Department Center 02/26/2023 KATIE GOLDEN CARD [facility] Family History Problem Relation Age of Onset Dementia Mother Heart attack Father 52 Liver cancer Brother Stroke Brother Family Status - Relation Status Age at Mother Father Brother Level of Service:[id number] ID OFFICE/OUTPATIENT ESTABLISHED MOD MDM 30-39 MIN Normal [facility] BNPon 11-12-2022 Natriuretic peptide B (Bld) [Mass/Vol] 405.0 pg/mL Normal <=1,800.0 [facility] Comment on above: Performed By: #### C VDAGS #### [facility] [address] [place] [address] Dr. Verena Hurtado CBC AUTO DIFFon 11-12-2022 BASO # 0.0 103/ul Normal 0.0-0.1 [facility] Comment on above: Performed By: #### C BC #### [facility] [address] [address] [address] Verena Hurtado Basophils/100 WBC (Bld) 0.8 % Normal 0.2-2.0 [facility] Comment on above: Performed By: #### C BC #### [facility] [address] [place] [address] Dr. Verena Hurtado EO # 0.2 103/ul Normal 0.0-0.7 [facility] Comment on above: Performed By: #### C BC #### [facility] [address] [place] [address] Dr. Verena Hurtado Eosinophils/100 WBC (Bld) 5.4 % Normal 0.9-7.0 [facility] Comment on above: Performed By: #### C BC #### [facility] [address] [place] [address] Dr. Verena Hurtado Erythrocyte distribution width (RBC) [Ratio] 13.2 % Normal 11.0-15.0 [facility] Comment on above: Performed By: #### C BC #### [facility] [address] [address] [address] Verena Hurtado Hematocrit (Bld) [Volume fraction] 46.1 % Normal 36.0-48.0 [facility] Comment on above: Performed By: #### C BC #### [facility] [address] [address] [address] Verena Hurtado Hemoglobin (Bld) [Mass/Vol] 14.5 g/dL Normal 12.0-16.0 [facility] Comment on above: Performed By: #### C BC #### [facility] [address] [address] [address] Verena Hurtado IG # 0.01 10e3/ul Normal 0.00-0.03 [facility] Comment on above: Performed By: #### C BC #### [facility] [address] [address] [address] Verena Hurtado IG % 0.3 % Normal 0.0-0.5 [facility] Comment on above: Performed By: #### C BC #### [facility] [address] [address] [address] Verena Hurtado LYMPH # 1.2 103/ul Normal 1.2-3.8 [facility] Comment on above: Performed By: #### C BC #### [facility] [address] [address] [address] Verena Hurtado Lymphocytes/100 WBC (Bld) 32.9 % Normal 20.5-60.0 [facility] Comment on above: Performed By: #### C BC #### [facility] [address] [address] [address] Verena Hurtado MANUAL DIFF REQ NO Normal [facility] Comment on above: Performed By: #### C BC #### [facility] [address] [place] [address] Dr. Verena Hurtado MCH (RBC) [Entitic mass] 30.1 pg Normal 26.7-34.0 [facility] Comment on above: Performed By: #### C BC #### [facility] [address] [address] [address] Verena Hurtado MCHC (RBC) [Mass/Vol] 31.5 g/dL Normal 29.9-35.2 [facility] Comment on above: Performed By: #### C BC #### [facility] [address] [address] [address] Verena Hurtado MCV (RBC) [Entitic vol] 95.6 fL Normal 81.0-99.0 [facility] Comment on above: Performed By: #### C BC #### [facility] [address] [address] [address] Verena Hurtado MONO # 0.3 103/ul Normal 0.3-0.8 [facility] Comment on above: Performed By: #### C BC #### [facility] [address] [place] [address] Dr. Verena Hurtado Monocytes/100 WBC (Bld) 7.9 % Normal 1.7-12.0 [facility] Comment on above: Performed By: #### C BC #### [facility] [address] [place] [address] Dr. Verena Hurtado NEUT # 1.9 103/ul Normal 1.4-6.5 [facility] Comment on above: Performed By: #### C BC #### [facility] [address] [place] [address] Dr. Verena Hurtado Neutrophils/100 WBC (Bld) 52.7 % Normal 43.0-75.0 [facility] Comment on above: Performed By: #### C BC #### [facility] [address] [place] [address] Dr. Verena Hurtado Platelet mean volume (Bld) [Entitic vol] 10.6 fL Normal 9.5-13.5 [facility] Comment on above: Performed By: #### C BC #### [facility] [address] [place] [address] Dr. Verena Hurtado PLT 211 103/ul Normal 150-450 [facility] Comment on above: Performed By: #### C BC #### [facility] [address] [place] [address] Dr. Verena Hurtado RBC 4.82 106/ul Normal 4.20-5.40 [facility] Comment on above: Performed By: #### C BC #### [facility] [address] [place] [address] Dr. Verena Hurtado WBC 3.7 103/ul Critically low 4.0-11.0 [facility] Comment on above: Performed By: #### C BC #### [facility] [address] [place] [address] Dr. Verena Hurtado PROF CHEM 8 (BAS METB)on Anion gap [Moles/Vol] 5.9 mmol/L Normal [facility] Comment on above: Performed By: #### B MP #### [facility] [address] [place] [address] Dr. Verena Hurtado Calcium [Mass/Vol] 9.1 mg/dL Normal 8.5-10.1 [facility] Comment on above: Performed By: #### B MP #### [facility] [address] [place] [address] Dr. Verena Hurtado Chloride [Moles/Vol] 107 mmol/L Normal 98-107 [facility] Comment on above: Performed By: #### B MP #### [facility] [address] [place] [address] Dr. Verena Hurtado CO2 [Moles/Vol] 32.5 mmol/L Critically high 21.0-32.0 [facility] Comment on above: Performed By: #### B MP #### [facility] [address] [place] [address] Dr. Verena Hurtado Creatinine [Mass/Vol] 0.93 mg/dL Normal 0.55-1.02 [facility] Comment on above: Performed By: #### B MP #### [facility] [address] [place] [address] Dr. Verena Hurtado EGFR-AF WALLISIAN >60 Normal >=60 [facility] Comment on above: Performed By: #### B MP #### [facility] [address] [place] [address] Dr. Verena Hurtado EGFR-NON AF WALLISIAN 59 mL/min/1.73m2 Critically low >=60 [facility] Comment on above: Performed By: #### B MP #### [facility] [address] [address] [address] Verena Hurtado Glucose [Mass/Vol] 95 mg/dL Normal 74-106 [facility] Comment on above: Performed By: #### B MP #### [facility] [address] [address] [address] Verena Hurtado Potassium [Moles/Vol] 4.4 mmol/L Normal 3.5-5.1 [facility] Comment on above: Performed By: #### B MP #### [facility] [address] [address] [address] Verena Hurtado Sodium [Moles/Vol] 141 mmol/L Normal 136-145 [facility] Comment on above: Performed By: #### B MP #### [facility] [address] [address] [address] Verena Hurtado Urea nitrogen [Mass/Vol] 17.0 mg/dL Normal 7.0-18.0 [facility] Comment on above: Performed By: #### B MP #### [facility] [address] [address] [address] Verena Hurtado Urea nitrogen/Creatinine [Mass ratio] 18.3 mg/mg Normal [facility] Comment on above: Performed By: #### B MP #### [facility] [address] [place] [address] Dr. Verena Hurtado SYMPTOMATIC COVID-19 ANTIGEN on 11-12-2022 EUA Statement SEE BELOW Normal [facility] Comment on above: Result Comment: This test [...] sooner. Performed By: #### C VDAGS #### [facility] [address] [address] [address] Verena Hurtado SARS-CoV-2 (COVID-19) RNA YESSY+probe Ql (Unsp spec) Negative Normal NEGATIVE [facility] Comment on above: Performed By: #### C VDAGS #### [facility] [address] [address] [address] Verena Hurtado TROPONIN, HIGH SENSITIVITYon 11-12-2022 HSTROP 12.3 pg/mL Normal 4.0-51.3 [facility] Comment on above: Result Comment: CUT- OFF POINTS HAVE BEEN ESTABLISHED BASED ON THE FOURTH UNIVERSAL DEFINITIONS OF MYOCARDIAL INFARCTION. THE UPPER REFERENCE LIMIT (URL) OF TROPONIN, DEFINED THE 99TH PERCENTILE OF cTnI DISTRIBUTION IN A REFERENCE POPULATION, HAS BEEN CONFIRMED THE DECISION THRESHOLD FOR NV DIAGNOSIS. Performed By: #### B MP #### [facility] [address] [place] [address] Dr. Verena Hurtado XR CHEST 1 Von [...] JANE GANNON Date: 2022-11-12 12:41 Normal [facility] CARDIAC ROBBIE 3-6on 3 CK [Catalytic activity/Vol] 52 U/L Normal 26-192 [facility] Comment on above: Performed By: #### C MREP #### [facility] [address] [address] [address] Verena Hurtado CK.MB [Mass/Vol] 1.15 ng/mL Normal <=3.60 [facility] Comment on above: Performed By: #### C MREP #### [facility] [address] [address] [address] Verena Hurtado HSTROP 79.2 pg/mL Critically high 4.0-51.3 [facility] Comment on above: Result Comment: CUT- OFF POINTS HAVE BEEN ESTABLISHED BASED ON THE FOURTH UNIVERSAL DEFINITIONS OF MYOCARDIAL INFARCTION. THE UPPER REFERENCE LIMIT (URL) OF TROPONIN, DEFINED THE 99TH PERCENTILE OF cTnI DISTRIBUTION IN A REFERENCE POPULATION, HAS BEEN CONFIRMED THE DECISION THRESHOLD FOR NV DIAGNOSIS. Performed By: #### C MREP #### [facility] [address] [place] [address] Dr. Verena Hurtado BNPon 11-04-2022 Natriuretic peptide B (Bld) [Mass/Vol] 184.0 pg/mL Normal <=900.0 [facility] Comment on above: Performed By: #### C MADM, BNP, TSH, CMP #### [facility] [address] [address] [address] Verena Hurtado CARDIAC ROBBIE ADMITon 023 CK [Catalytic activity/Vol] 65 U/L Normal 26-192 [facility] Comment on above: Performed By: #### C MADM, BNP, TSH, CMP #### [facility] [address] [address] [address] Verena Hurtado CK.MB [Mass/Vol] 1.33 ng/mL Normal <=3.60 [facility] Comment on above: Performed By: #### C MADM, BNP, TSH, CMP #### [facility] [address] [place] [address] Dr. Verena Hurtado HSTROP 18.1 pg/mL Normal 4.0-51.3 [facility] Comment on above: Result Comment: CUT- OFF POINTS HAVE BEEN ESTABLISHED BASED ON THE FOURTH UNIVERSAL DEFINITIONS OF MYOCARDIAL INFARCTION. THE UPPER REFERENCE LIMIT (URL) OF TROPONIN, DEFINED THE 99TH PERCENTILE OF cTnI DISTRIBUTION IN A REFERENCE POPULATION, HAS BEEN CONFIRMED THE DECISION THRESHOLD FOR [place] DIAGNOSIS. Performed By: #### C MADM, BNP, TSH, CMP #### [facility] [address] [place] [address] Dr. Verena Hurtado FAUSTINO 48 ng/mL Normal 9-82 [facility] Comment on above: Performed By: #### C MADM, BNP, TSH, CMP #### [facility] [address] [place] [address] Dr. Verena Hurtado CBC AUTO DIFFon 11-04-2022 BASO # 0.1 103/ul Normal 0.0-0.1 [facility] Comment on above: Performed By: #### C VDAGS #### [facility] [address] [place] [address] Dr. Verena Hurtado Basophils/100 WBC (Bld) 0.8 % Normal 0.2-2.0 [facility] Comment on above: Performed By: #### C VDAGS #### [facility] [address] [place] [address] Dr. Verena Hurtado EO # 0.3 103/ul Normal 0.0-0.7 [facility] Comment on above: Performed By: #### C VDAGS #### [facility] [address] [place] [address] Dr. Verena Hurtado Eosinophils/100 WBC (Bld) 3.9 % Normal 0.9-7.0 [facility] Comment on above: Performed By: #### C VDAGS #### [facility] [address] [place] [address] Dr. Verena Hurtado Erythrocyte distribution width (RBC) [Ratio] 13.5 % Normal 11.0-15.0 [facility] Comment on above: Performed By: #### C VDAGS #### [facility] [address] [place] [address] Dr. Verena Hurtado Hematocrit (Bld) [Volume fraction] 50.2 % Critically high 36.0-48.0 [facility] Comment on above: Performed By: #### C VDAGS #### [facility] [address] [place] [address] Dr. Verena Hurtado Hemoglobin (Bld) [Mass/Vol] 16.0 g/dL Normal 12.0-16.0 [facility] Comment on above: Performed By: #### C VDAGS #### [facility] [address] [address] [address] Verena Hurtado IG # 0.01 10e3/ul Normal 0.00-0.03 [facility] Comment on above: Performed By: #### C VDAGS #### [facility] [address] [address] [address] Verena Hurtado IG % 0.2 % Normal 0.0-0.5 [facility] Comment on above: Performed By: #### C VDAGS #### [facility] [address] [place] [address] Dr. Verena Hurtado LYMPH # 2.3 103/ul Normal 1.2-3.8 [facility] Comment on above: Performed By: #### C VDAGS #### [facility] [address] [place] [address] Dr. Verena Hurtado Lymphocytes/100 WBC (Bld) 35.3 % Normal 20.5-60.0 [facility] Comment on above: Performed By: #### C VDAGS #### [facility] [address] [place] [address] Dr. Verena Hurtado MANUAL DIFF REQ NO Normal [facility] Comment on above: Performed By: #### C VDAGS #### [facility] [address] [address] [address] Verena Hurtado MCH (RBC) [Entitic mass] 30.4 pg Normal 26.7-34.0 [facility] Comment on above: Performed By: #### C VDAGS #### [facility] [address] [address] [address] Verena Hurtado MCHC (RBC) [Mass/Vol] 31.9 g/dL Normal 29.9-35.2 [facility] Comment on above: Performed By: #### C VDAGS #### [facility] [address] [place] [address] Dr. Verena Hurtado MCV (RBC) [Entitic vol] 95.4 fL Normal 81.0-99.0 [facility] Comment on above: Performed By: #### C VDAGS #### [facility] [address] [place] [address] Dr. Verena Hurtado MONO # 0.5 103/ul Normal 0.3-0.8 [facility] Comment on above: Performed By: #### C VDAGS #### [facility] [address] [place] [address] Dr. Verena Hurtado Monocytes/100 WBC (Bld) 8.4 % Normal 1.7-12.0 [facility] Comment on above: Performed By: #### C VDAGS #### [facility] [address] [place] [address] Dr. Verena Hurtado NEUT # 3.3 103/ul Normal 1.4-6.5 [facility] Comment on above: Performed By: #### C VDAGS #### [facility] [address] [place] [address] Dr. Verena Hurtado Neutrophils/100 WBC (Bld) 51.4 % Normal 43.0-75.0 [facility] Comment on above: Performed By: #### C VDAGS #### [facility] [address] [place] [address] Dr. Verena Hurtado Platelet mean volume (Bld) [Entitic vol] 11.2 fL Normal 9.5-13.5 [facility] Comment on above: Performed By: #### C VDAGS #### [facility] [address] [place] [address] Dr. Verena Hurtado PLT 262 103/ul Normal 150-450 [facility] Comment on above: Performed By: #### C VDAGS #### [facility] [address] [place] [address] Dr. Verena Hurtado RBC 5.26 106/ul Normal 4.20-5.40 [facility] Comment on above: Performed By: #### C VDAGS #### [facility] [address] [place] [address] Dr. Verena Hurtado WBC 6.5 103/ul Normal 4.0-11.0 [facility] Comment on above: Performed By: #### C VDAGS #### [facility] [address] [place] [address] Dr. Verena Hurtado D-DIMERon 11-04-2022 D-DIMER 0.32 mg/L FEU Normal <=0.59 [facility] Comment on above: Performed By: #### C VDAGS #### [facility] [address] [place] [address] Dr. Verena Hurtado D-DIMER COMMENTS SEE BELOW Normal [facility] Comment on above: Result Comment: Incr [...] hospitalization. Performed By: #### C VDAGS #### [facility] [address] [place] [address] Dr. Verena Hurtado PROF 14(COMP METB)on 023 Albumin [Mass/Vol] 3.8 g/dL Normal 3.4-5.0 [facility] Comment on above: Performed By: #### C MADM, BNP, TSH, CMP #### [facility] [address] [place] [address] Dr. Verena Hurtado Albumin/Globulin [Mass ratio] 0.9 {ratio} Normal [facility] Comment on above: Performed By: #### C MADM, BNP, TSH, CMP #### [facility] [address] [place] [address] Dr. Verena Hurtado ALP [Catalytic activity/Vol] 108 U/L Normal 46-116 [facility] Comment on above: Performed By: #### C MADM, BNP, TSH, CMP #### [facility] [address] [address] [address] Verena Hurtado ALT [Catalytic activity/Vol] 21 U/L Normal 14-59 [facility] Comment on above: Performed By: #### C MADM, BNP, TSH, CMP #### [facility] [address] [address] [address] Verena Hurtado Anion gap [Moles/Vol] 8.5 mmol/L Normal [facility] Comment on above: Performed By: #### C MADM, BNP, TSH, CMP #### [facility] [address] [address] [address] Verena Hurtado AST [Catalytic activity/Vol] 17 U/L Normal 15-37 [facility] Comment on above: Performed By: #### C MADM, BNP, TSH, CMP #### [facility] [address] [address] [address] Verena Hurtado Bilirubin [Mass/Vol] 0.1 mg/dL Critically low 0.2-1.0 [facility] Comment on above: Performed By: #### C MADM, BNP, TSH, CMP #### [facility] [address] [address] [address] Verena Hurtado Calcium [Mass/Vol] 10.0 mg/dL Normal 8.5-10.1 [facility] Comment on above: Performed By: #### C MADM, BNP, TSH, CMP #### [facility] [address] [address] [address] Verena Hurtado Chloride [Moles/Vol] 107 mmol/L Normal 98-107 [facility] Comment on above: Performed By: #### C MADM, BNP, TSH, CMP #### [facility] [address] [address] [address] Verena Hurtado CO2 [Moles/Vol] 31.4 mmol/L Normal 21.0-32.0 [facility] Comment on above: Performed By: #### C MADM, BNP, TSH, CMP #### [facility] [address] [address] [address] Verena Hurtado Creatinine [Mass/Vol] 1.06 mg/dL Critically high 0.55-1.02 [facility] Comment on above: Performed By: #### C MADM, BNP, TSH, CMP #### [facility] [address] [place] [address] Dr. Verena Hurtado EGFR-AF WALLISIAN >60 Normal >=60 [facility] Comment on above: Performed By: #### C MADM, BNP, TSH, CMP #### [facility] [address] [place] [address] Dr. Verena Hurtado EGFR-NON AF WALLISIAN 51 mL/min/1.73m2 Critically low >=60 [facility] Comment on above: Performed By: #### C MADM, BNP, TSH, CMP #### [facility] [address] [place] [address] Dr. Verena Hurtado Globulin (S) [Mass/Vol] 4.2 g/dL Normal [facility] Comment on above: Performed By: #### C MADM, BNP, TSH, CMP #### [facility] [address] [place] [address] Dr. Verena Hurtado Glucose [Mass/Vol] 144 mg/dL Critically high 74-106 [facility] Comment on above: Performed By: #### C MADM, BNP, TSH, CMP #### [facility] [address] [place] [address] Dr. Verena Hurtado Potassium [Moles/Vol] 3.9 mmol/L Normal 3.5-5.1 [facility] Comment on above: Performed By: #### C MADM, BNP, TSH, CMP #### [facility] [address] [place] [address] Dr. Verena Hurtado Protein [Mass/Vol] 8.0 g/dL Normal 6.4-8.2 [facility] Comment on above: Performed By: #### C MADM, BNP, TSH, CMP #### [facility] [address] [place] [address] Dr. Verena Hurtado Sodium [Moles/Vol] 143 mmol/L Normal 136-145 [facility] Comment on above: Performed By: #### C MADM, BNP, TSH, CMP #### [facility] [address] [place] [address] Dr. Verena Hurtado Urea nitrogen [Mass/Vol] 16.0 mg/dL Normal 7.0-18.0 [facility] Comment on above: Performed By: #### C MADM, BNP, TSH, CMP #### [facility] [address] [place] [address] Dr. Verena Hurtado Urea nitrogen/Creatinine [Mass ratio] 15.1 mg/mg Normal [facility] Comment on above: Performed By: #### C MADM, BNP, TSH, CMP #### [facility] [address] [place] [address] Dr. Verena Hurtado PROTIMEon 11-04-2022 INR Coag (PPP) [Relative time] 0.95 {INR} Normal [facility] Comment on above: Performed By: #### C VDAGS #### [facility] [address] [place] [address] Dr. Verena Hurtado INR GUIDELINES SEE BELOW Normal [facility] Comment on above: Result Comment: YAIR RED INR: 2.0 - 3.0 CONDITIONS NOT LISTED BELOW 2.5 - 3.5 FOR PROSTHETIC HEART VALVE REPLACEMENT 2.5 - 3.5 RECURRENT THROMBOSIS Performed By: #### C VDAGS #### [facility] [address] [place] [address] Dr. Verena Hurtado PT Coag (PPP) [Time] 10.1 s Normal 9.0-11.6 [facility] Comment on above: Performed By: #### C VDAGS #### [facility] [address] [place] [address] Dr. Verena Hurtado PTTon 11-04-2022 aPTT Coag (Bld) [Time] 27.2 s Normal 22.3-36.2 [facility] Comment on above: Performed By: #### C VDAGS #### [facility] [address] [place] [address] Dr. Verena Hurtado TSHon 11-04-2022 TSH 1.054 uIU/mL Normal 0.358-3.740 [facility] Comment on above: Performed By: #### C MADM, BNP, TSH, CMP #### [facility] [address] [address] [address] Verena Hurtado XR CHEST 1 Von [...] Ed HUTTON Date: 2022-11-04 19:57 Normal [facility] CBC AUTO DIFFon 07-09-2022 BASO # 0.0 103/ul Normal 0.0-0.1 [facility] Comment on above: Performed By: #### C BC #### [facility] [address] [place] [address] Dr. Verena Hurtado Basophils/100 WBC (Bld) 0.2 % Normal 0.2-2.0 [facility] Comment on above: Performed By: #### C BC #### [facility] [address] [place] [address] Dr. Verena Hurtado EO # 0.0 103/ul Normal 0.0-0.7 [facility] Comment on above: Performed By: #### C BC #### [facility] [address] [place] [address] Dr. Verena Hutrado Eosinophils/100 WBC (Bld) 0.0 % Critically low 0.9-7.0 [facility] Comment on above: Performed By: #### C BC #### [facility] [address] [place] [address] Dr. Verena Hurtado Erythrocyte distribution width (RBC) [Ratio] 13.9 % Normal 11.0-15.0 [facility] Comment on above: Performed By: #### C BC #### [facility] [address] [address] [address] Verena Hurtado Hematocrit (Bld) [Volume fraction] 36.1 % Normal 36.0-48.0 [facility] Comment on above: Performed By: #### C BC #### [facility] [address] [address] [address] Verena Hurtado Hemoglobin (Bld) [Mass/Vol] 11.5 g/dL Critically low 12.0-16.0 [facility] Comment on above: Performed By: #### C BC #### [facility] [address] [address] [address] Verena Hurtado IG # 0.21 10e3/ul Critically high 0.00-0.03 [facility] Comment on above: Performed By: #### C BC #### [facility] [address] [place] [address] Dr. Verena Hurtado IG % 1.5 % Critically high 0.0-0.5 [facility] Comment on above: Performed By: #### C BC #### [facility] [address] [address] [address] Verena Hurtado LYMPH # 0.6 103/ul Critically low 1.2-3.8 [facility] Comment on above: Performed By: #### C BC #### [facility] [address] [place] [address] Dr. Verena Hurtado Lymphocytes/100 WBC (Bld) 4.2 % Critically low 20.5-60.0 [facility] Comment on above: Performed By: #### C BC #### [facility] [address] [address] [address] Verena Hurtado MANUAL DIFF REQ NO Normal [facility] Comment on above: Performed By: #### C BC #### [facility] [address] [place] [address] Dr. Verena Hurtado MCH (RBC) [Entitic mass] 30.3 pg Normal 26.7-34.0 [facility] Comment on above: Performed By: #### C BC #### [facility] [address] [address] [address] Verena Hurtado MCHC (RBC) [Mass/Vol] 31.9 g/dL Normal 29.9-35.2 [facility] Comment on above: Performed By: #### C BC #### [facility] [address] [place] [address] Dr. Verena Hurtado MCV (RBC) [Entitic vol] 95.3 fL Normal 81.0-99.0 [facility] Comment on above: Performed By: #### C BC #### [facility] [address] [place] [address] Dr. Verena Hurtado MONO # 0.4 103/ul Normal 0.3-0.8 [facility] Comment on above: Performed By: #### C BC #### [facility] [address] [place] [address] Dr. Verena Hurtado Monocytes/100 WBC (Bld) 3.1 % Normal 1.7-12.0 [facility] Comment on above: Performed By: #### C BC #### [facility] [address] [place] [address] Dr. Verena Hurtado NEUT # 12.4 103/ul Critically high 1.4-6.5 [facility] Comment on above: Performed By: #### C BC #### [facility] [address] [place] [address] Dr. Verena Hurtado Neutrophils/100 WBC (Bld) 91.0 % Critically high 43.0-75.0 [facility] Comment on above: Performed By: #### C BC #### [facility] [address] [place] [address] Dr. Verena Hurtado Platelet mean volume (Bld) [Entitic vol] 10.7 fL Normal 9.5-13.5 [facility] Comment on above: Performed By: #### C BC #### [facility] [address] [place] [address] Dr. Verena Hurtado PLT 245 103/ul Normal 150-450 [facility] Comment on above: Performed By: #### C BC #### [facility] [address] [place] [address] Dr. Verena Hurtado RBC 3.79 106/ul Critically low 4.20-5.40 [facility] Comment on above: Performed By: #### C BC #### [facility] [address] [place] [address] Dr. Verena Hurtado WBC 13.7 103/ul Critically high 4.0-11.0 [facility] Comment on above: Performed By: #### C BC #### [facility] [address] [place] [address] Dr. Verena Hurtado PROF CHEM 8 (BAS METB)on Anion gap [Moles/Vol] 11.2 mmol/L Normal [facility] Comment on above: Performed By: #### B MP #### [facility] [address] [place] [address] Dr. Verena Hurtado Calcium [Mass/Vol] 9.5 mg/dL Normal 8.5-10.1 [facility] Comment on above: Performed By: #### B MP #### [facility] [address] [place] [address] Dr. Verena Hurtado Chloride [Moles/Vol] 107 mmol/L Normal 98-107 [facility] Comment on above: Performed By: #### B MP #### [facility] [address] [place] [address] Dr. Verena Hurtado CO2 [Moles/Vol] 28.7 mmol/L Normal 21.0-32.0 [facility] Comment on above: Performed By: #### B MP #### [facility] [address] [place] [address] Dr. Verena Hurtado Creatinine [Mass/Vol] 0.91 mg/dL Normal 0.55-1.02 [facility] Comment on above: Performed By: #### B MP #### [facility] [address] [place] [address] Dr. Verena Hurtado EGFR-AF WALLISIAN >60 Normal >=60 [facility] Comment on above: Performed By: #### B MP #### [facility] [address] [place] [address] Dr. Verena Hurtado EGFR-NON AF WALLISIAN >60 Normal >=60 [facility] Comment on above: Performed By: #### B MP #### [facility] [address] [place] [address] Dr. Verena Hurtado Glucose [Mass/Vol] 189 mg/dL Critically high 74-106 [facility] Comment on above: Performed By: #### B MP #### [facility] [address] [place] [address] Dr. Verena Hurtado Potassium [Moles/Vol] 3.9 mmol/L Normal 3.5-5.1 [facility] Comment on above: Performed By: #### B MP #### [facility] [address] [place] [address] Dr. Verena Hurtado Sodium [Moles/Vol] 143 mmol/L Normal 136-145 [facility] Comment on above: Performed By: #### B MP #### [facility] [address] [place] [address] Dr. Verena Hurtado Urea nitrogen [Mass/Vol] 24.0 mg/dL Critically high 7.0-18.0 [facility] Comment on above: Performed By: #### B MP #### [facility] [address] [place] [address] Dr. Verena Hurtado Urea nitrogen/Creatinine [Mass ratio] 26.4 mg/mg Normal [facility] Comment on above: Performed By: #### B MP #### [facility] [address] [place] [address] Dr. Verena Hurtado CBC AUTO DIFFon 07-08-2022 BASO # 0.0 103/ul Normal 0.0-0.1 [facility] Comment on above: Performed By: #### C BC #### [facility] [address] [place] [address] Dr. Verena Hurtado Basophils/100 WBC (Bld) 0.2 % Normal 0.2-2.0 [facility] Comment on above: Performed By: #### C BC #### [facility] [address] [place] [address] Dr. Verena Hurtado EO # 0.0 103/ul Normal 0.0-0.7 [facility] Comment on above: Performed By: #### C BC #### [facility] [address] [place] [address] Dr. Verena Hurtado Eosinophils/100 WBC (Bld) 0.0 % Critically low 0.9-7.0 [facility] Comment on above: Performed By: #### C BC #### [facility] [address] [place] [address] Dr. Verena Hurtado Erythrocyte distribution width (RBC) [Ratio] 13.5 % Normal 11.0-15.0 [facility] Comment on above: Performed By: #### C BC #### [facility] [address] [place] [address] Dr. Verena Hurtado Hematocrit (Bld) [Volume fraction] 38.1 % Normal 36.0-48.0 [facility] Comment on above: Performed By: #### C BC #### [facility] [address] [place] [address] Dr. Verena Hurtado Hemoglobin (Bld) [Mass/Vol] 11.9 g/dL Critically low 12.0-16.0 [facility] Comment on above: Performed By: #### C BC #### [facility] [address] [place] [address] Dr. Verena Hurtado IG # 0.05 10e3/ul Critically high 0.00-0.03 [facility] Comment on above: Performed By: #### C BC #### [facility] [address] [place] [address] Dr. Verena Hurtado IG % 0.9 % Critically high 0.0-0.5 [facility] Comment on above: Performed By: #### C BC #### [facility] [address] [place] [address] Dr. Verena Hurtado LYMPH # 0.5 103/ul Critically low 1.2-3.8 [facility] Comment on above: Performed By: #### C BC #### [facility] [address] [place] [address] Dr. Verena Hurtado Lymphocytes/100 WBC (Bld) 9.3 % Critically low 20.5-60.0 [facility] Comment on above: Performed By: #### C BC #### [facility] [address] [place] [address] Dr. Verena Hurtado MANUAL DIFF REQ NO Normal [facility] Comment on above: Performed By: #### C BC #### [facility] [address] [place] [address] Dr. Verena Hurtado MCH (RBC) [Entitic mass] 30.1 pg Normal 26.7-34.0 [facility] Comment on above: Performed By: #### C BC #### [facility] [address] [place] [address] Dr. Verena Hurtado MCHC (RBC) [Mass/Vol] 31.2 g/dL Normal 29.9-35.2 [facility] Comment on above: Performed By: #### C BC #### [facility] [address] [place] [address] Dr. Verena Hurtado MCV (RBC) [Entitic vol] 96.5 fL Normal 81.0-99.0 [facility] Comment on above: Performed By: #### C BC #### [facility] [address] [place] [address] Dr. Verena Hurtado MONO # 0.1 103/ul Critically low 0.3-0.8 [facility] Comment on above: Performed By: #### C BC #### [facility] [address] [place] [address] Dr. Verena Hurtado Monocytes/100 WBC (Bld) 1.8 % Normal 1.7-12.0 [facility] Comment on above: Performed By: #### C BC #### [facility] [address] [place] [address] Dr. Verena Hurtado NEUT # 4.8 103/ul Normal 1.4-6.5 [facility] Comment on above: Performed By: #### C BC #### [facility] [address] [place] [address] Dr. Verena Hurtado Neutrophils/100 WBC (Bld) 87.8 % Critically high 43.0-75.0 [facility] Comment on above: Performed By: #### C BC #### [facility] [address] [place] [address] Dr. Verena Hurtado Platelet mean volume (Bld) [Entitic vol] 10.6 fL Normal 9.5-13.5 [facility] Comment on above: Performed By: #### C BC #### [facility] [address] [place] [address] Dr. Verena Hurtado PLT 200 103/ul Normal 150-450 [facility] Comment on above: Performed By: #### C BC #### [facility] [address] [place] [address] Dr. Verena Hurtado RBC 3.95 106/ul Critically low 4.20-5.40 [facility] Comment on above: Performed By: #### C BC #### [facility] [address] [place] [address] Dr. Verena Hurtado WBC 5.5 103/ul Normal 4.0-11.0 [facility] Comment on above: Performed By: #### C BC #### [facility] [address] [place] [address] Dr. Verena Hurtado PROF CHEM 8 (BAS METB)on Anion gap [Moles/Vol] 13.7 mmol/L Normal [facility] Comment on above: Performed By: #### C BC #### [facility] [address] [place] [address] Dr. Verena Hurtado Calcium [Mass/Vol] 9.3 mg/dL Normal 8.5-10.1 [facility] Comment on above: Performed By: #### C BC #### [facility] [address] [place] [address] Dr. Verena Hurtado Chloride [Moles/Vol] 104 mmol/L Normal 98-107 [facility] Comment on above: Performed By: #### C BC #### [facility] [address] [place] [address] Dr. Verena Hurtado CO2 [Moles/Vol] 27.2 mmol/L Normal 21.0-32.0 [facility] Comment on above: Performed By: #### C BC #### [facility] [address] [address] [address] Verena Hurtado Creatinine [Mass/Vol] 1.14 mg/dL Critically high 0.55-1.02 [facility] Comment on above: Performed By: #### C BC #### [facility] [address] [address] [address] Verena Hurtado EGFR-AF WALLISIAN 56 mL/min/1.73m2 Critically low >=60 [facility] Comment on above: Performed By: #### C BC #### [facility] [address] [address] [address] Verena Hurtado EGFR-NON AF W[place]IAN 47 mL/min/1.73m2 Critically low >=60 [facility] Comment on above: Performed By: #### C BC #### [facility] [address] [address] [address] Verena Hurtado Glucose [Mass/Vol] 288 mg/dL Critically high 74-106 [facility] Comment on above: Performed By: #### C BC #### [facility] [address] [address] [address] Verena Hurtado Potassium [Moles/Vol] 3.9 mmol/L Normal 3.5-5.1 [facility] Comment on above: Performed By: #### C BC #### [facility] [address] [address] [address] Verena Hurtado Sodium [Moles/Vol] 141 mmol/L Normal 136-145 [facility] Comment on above: Performed By: #### C BC #### [facility] [address] [address] [address] Verena Hurtado Urea nitrogen [Mass/Vol] 18.0 mg/dL Normal 7.0-18.0 [facility] Comment on above: Performed By: #### C BC #### [facility] [address] [address] [address] Verena Hurtado Urea nitrogen/Creatinine [Mass ratio] 15.8 mg/mg Normal [facility] Comment on above: Performed By: #### C BC #### [facility] [address] [place] [address] Dr. Verena Hurtado BNPon 07-07-2022 Natriuretic peptide B (Bld) [Mass/Vol] 137.0 pg/mL Normal <=900.0 [facility] Comment on above: Performed By: #### C VDAGS #### [facility] [address] [place] [address] Dr. Verena Hurtado CBC AUTO DIFFon 07-07-2022 BASO # 0.0 103/ul Normal 0.0-0.1 [facility] Comment on above: Performed By: #### C BC #### [facility] [address] [place] [address] Dr. Verena Hurtado Basophils/100 WBC (Bld) 0.5 % Normal 0.2-2.0 [facility] Comment on above: Performed By: #### C BC #### [facility] [address] [place] [address] Dr. Verena Hurtado EO # 0.0 103/ul Normal 0.0-0.7 [facility] Comment on above: Performed By: #### C BC #### [facility] [address] [place] [address] Dr. Verena Hurtado Eosinophils/100 WBC (Bld) 0.5 % Critically low 0.9-7.0 [facility] Comment on above: Performed By: #### C BC #### [facility] [address] [place] [address] Dr. Verena Hurtado Erythrocyte distribution width (RBC) [Ratio] 13.5 % Normal 11.0-15.0 [facility] Comment on above: Performed By: #### C BC #### [facility] [address] [place] [address] Dr. Verena Hurtado Hematocrit (Bld) [Volume fraction] 45.3 % Normal 36.0-48.0 [facility] Comment on above: Performed By: #### C BC #### [facility] [address] [place] [address] Dr. Verena Hurtado Hemoglobin (Bld) [Mass/Vol] 14.8 g/dL Normal 12.0-16.0 [facility] Comment on above: Performed By: #### C BC #### [facility] [address] [place] [address] Dr. Verena Hurtado IG # 0.04 10e3/ul Critically high 0.00-0.03 [facility] Comment on above: Performed By: #### C BC #### [facility] [address] [address] [address] Verena Hurtado IG % 0.5 % Normal 0.0-0.5 [facility] Comment on above: Performed By: #### C BC #### [facility] [address] [place] [address] Dr. Verena Hurtado LYMPH # 1.0 103/ul Critically low 1.2-3.8 [facility] Comment on above: Performed By: #### C BC #### [facility] [address] [place] [address] Dr. Verena Hurtado Lymphocytes/100 WBC (Bld) 12.5 % Critically low 20.5-60.0 [facility] Comment on above: Performed By: #### C BC #### [facility] [address] [place] [address] Dr. Verena Hurtado MANUAL DIFF REQ NO Normal [facility] Comment on above: Performed By: #### C BC #### [facility] [address] [place] [address] Dr. Verena Hurtado MCH (RBC) [Entitic mass] 30.5 pg Normal 26.7-34.0 [facility] Comment on above: Performed By: #### C BC #### [facility] [address] [place] [address] Dr. Verena Hurtado MCHC (RBC) [Mass/Vol] 32.7 g/dL Normal 29.9-35.2 [facility] Comment on above: Performed By: #### C BC #### [facility] [address] [place] [address] Dr. Verena Hurtado MCV (RBC) [Entitic vol] 93.4 fL Normal 81.0-99.0 [facility] Comment on above: Performed By: #### C BC #### [facility] [address] [place] [address] Dr. Verena Hurtado MONO # 0.7 103/ul Normal 0.3-0.8 [facility] Comment on above: Performed By: #### C BC #### [facility] [address] [place] [address] Dr. Verena Hurtado Monocytes/100 WBC (Bld) 9.1 % Normal 1.7-12.0 [facility] Comment on above: Performed By: #### C BC #### [facility] [address] [place] [address] Dr. Verena Hurtado NEUT # 6.1 103/ul Normal 1.4-6.5 [facility] Comment on above: Performed By: #### C BC #### [facility] [address] [place] [address] Dr. Verena Hurtado Neutrophils/100 WBC (Bld) 76.9 % Critically high 43.0-75.0 [facility] Comment on above: Performed By: #### C BC #### [facility] [address] [place] [address] Dr. Verena Hurtado Platelet mean volume (Bld) [Entitic vol] 12.0 fL Normal 9.5-13.5 [facility] Comment on above: Performed By: #### C BC #### [facility] [address] [place] [address] Dr. Verena Hurtado PLT 69 103/ul Critically low 150-450 [facility] Comment on above: Performed By: #### C BC #### [facility] [address] [place] [address] Dr. Verena Hurtado RBC 4.85 106/ul Normal 4.20-5.40 [facility] Comment on above: Performed By: #### C BC #### [facility] [address] [place] [address] Dr. Verena Hurtado WBC 7.9 103/ul Normal 4.0-11.0 [facility] Comment on above: Performed By: #### C BC #### [facility] [address] [address] [address] Verena Hurtado CULTURE BLOODon 07-07-2022 Microscopic examination of blood, culture Culture Observations: NO GROWTH AT 5 DAYS. Normal [facility] Comment on above: Performed By: #### C BC #### [facility] [id number] Verena Hurtado [facility] SARS-CoV-2 (COVID-19) RNA YESSY+probe Ql (Unsp spec) Not detected Normal NOT DETECTED [facility] Comment on above: Result Comment: When [...] for this test is supported by the [place] of Health and Human Service's declaration that [...] used). Performed By: #### C VDTBH #### [facility] [address] [place] [address] Dr. Verena Hurtado INFLUENZA A AND B AGon 07-07 INFLUANEGH SEE BELOW Normal [facility] Comment on above: Result Comment: Nega tive for Flu A protein angiten. Infection due to Flu A cannot be ruled out. Flu A angiten in the sample may be below the detection limit of the test. Performed By: #### C VDAGS #### [facility] [address] [address] [address] Verena Hurtado INFLUBNEGH SEE BELOW Normal [facility] Comment on above: Result Comment: Nega tive for Flu B protein antigen. Infection due to Flu B cannot be ruled out. Flu B antigen in the sample may be below the detection limit of the test. Performed By: #### C VDAGS #### [facility] [address] [place] [address] Dr. Verena Hurtado INFLUENZA A AG Negative Normal NEGATIVE SEE COMMENT [facility] Comment on above: Performed By: #### C VDAGS #### [facility] [address] [place] [address] Dr. Verena Hurtado INFLUENZA B AG Negative Normal NEGATIVE SEE COMMENT [facility] Comment on above: Performed By: #### C VDAGS #### [facility] [address] [place] [address] Dr. Verena Hurtado LACTATE/LACTIC ACIDon 2021 Lactate [Moles/Vol] 1.1 mmol/L Normal 0.4-1.9 [facility] Comment on above: Performed By: #### C VDAGS #### [facility] [address] [place] [address] Dr. Verena Hurtado PROF CHEM 8 (BAS METB)on Anion gap [Moles/Vol] 11.2 mmol/L Normal [facility] Comment on above: Performed By: #### C BC #### [facility] [address] [place] [address] Dr. Verena Hurtado Calcium [Mass/Vol] 9.5 mg/dL Normal 8.5-10.1 [facility] Comment on above: Performed By: #### C BC #### [facility] [address] [place] [address] Dr. Verena Hurtdao Chloride [Moles/Vol] 100 mmol/L Normal 98-107 [facility] Comment on above: Performed By: #### C BC #### [facility] [address] [place] [address] Dr. Verena Hurtado CO2 [Moles/Vol] 29.7 mmol/L Normal 21.0-32.0 [facility] Comment on above: Performed By: #### C BC #### [facility] [address] [place] [address] Dr. Verena Hurtado Creatinine [Mass/Vol] 0.90 mg/dL Normal 0.55-1.02 [facility] Comment on above: Performed By: #### C BC #### [facility] [address] [address] [address] Verena Hurtado EGFR-AF WALLISIAN >60 Normal >=60 [facility] Comment on above: Performed By: #### C BC #### [facility] [address] [place] [address] Dr. Verena Hurtado EGFR-NON AF [place]IAN >60 Normal >=60 [facility] Comment on above: Performed By: #### C BC #### [facility] [address] [place] [address] Dr. Verena Hurtado Glucose [Mass/Vol] 107 mg/dL Critically high 74-106 [facility] Comment on above: Performed By: #### C BC #### [facility] [address] [place] [address] Dr. Verena Hurtado Potassium [Moles/Vol] 4.9 mmol/L Normal 3.5-5.1 [facility] Comment on above: Performed By: #### C BC #### [facility] [facility] [address] [place] [address] Dr. Verena Hurtado Sodium [Moles/Vol] 136 mmol/L Normal 136-145 [facility] Comment on above: Performed By: #### C BC #### [facility] [address] [place] [address] Dr. Verena Hurtado Urea nitrogen [Mass/Vol] 17.0 mg/dL Normal 7.0-18.0 [facility] Comment on above: Performed By: #### C BC #### [facility] [address] [place] [address] Dr. Verena Hurtado Urea nitrogen/Creatinine [Mass ratio] 18.9 mg/mg Normal [facility] Comment on above: Performed By: #### C BC #### [facility] [address] [place] [address] Dr. Verena Hurtado TROPONIN, HIGH SENSITIVITYon 12-31-2022 HSTROP 11.9 pg/mL Normal 4.0-51.3 [facility] Comment on above: Result Comment: CUT- OFF POINTS HAVE BEEN ESTABLISHED BASED ON THE FOURTH UNIVERSAL DEFINITIONS OF MYOCARDIAL INFARCTION. THE UPPER REFERENCE LIMIT (URL) OF TROPONIN, DEFINED THE 99TH PERCENTILE OF cTnI DISTRIBUTION IN A REFERENCE POPULATION, HAS BEEN CONFIRMED THE DECISION THRESHOLD FOR [place] DIAGNOSIS. Performed By: #### C VDAGS #### [facility] [address] [id number] [address] Verena Hurtado XR CHEST 1 Von [...] by: TOÑITO YEE Date: 2022-07-07 10:44 Normal [facility] CT LUNG CANCER SCREENINGon 1 [...] JOSE ROBERTO JOSEPH Date: 2022-06-12 10:01 Normal [facility] MG MAMM SCREEN 3D LANA CADon 05-10-2022 MG MAMM SCREEN 3D LANA CAD Patient: CASI FRAZIER Exam Date: 05/10/2022 : 1945 Gender:F Ordering : DR SUZANNE GLYNN M.D. Admission #: [id number] Family : Order #: [id number] CLICK HERE TO VIEW EXAM RADIOLOGY REPORT PROCEDURE: MAMMOGRAM SCREENING 3D BILATERAL CAD COMPARISON: None. INDICATIONS: Screening mammography Calculator Name NCI Breast Cancer Risk Assessment Tool 5 Year Breast Cancer Risk Not Reported. Lifetime Breast Cancer Risk Not Reported. Personal Breast Cancer No Personal Ovarian Cancer No Treatments None Family Cancers None LOCATION: [facility] BREAST COMPOSITION: Almost entirely fatty. FINDINGS: [...] Abraham MD on 05/10/2022 at 15:32 Normal [facility] Vital Signs Date Time Vital Sign Value Performing Clinician Facility 10-30-2023 11: Body height 149.86 cm [facility] 10-30-2023 11:040 Body mass index (BMI) [Ratio] 23.8 kg/m2 [facility] 10-30-2023 11: Body weight 53.52 kg [facility] 10-30-2023 11:040 Diastolic blood pressure 83 mm[Hg] [facility] 10-30-2023 11:040 Heart rate 90 /min [facility] 10-30-2023 11:26-0400 SaO2% (BldA) [Mass fraction] 92 % [facility] 10-30-2023 11:26-0400 Systolic blood pressure 150 mm[Hg] [facility] 09-23-2023 10:52-0400 Body height 149.86 cm [facility] 09-23-2023 10:52-0400 Body mass index (BMI) [Ratio] 22.8 kg/m2 [facility] 09-23-2023 10:52-0400 Body weight 51.42 kg [facility] 09-23-2023 10:52-0400 Diastolic blood pressure 86 mm[Hg] [facility] 09-23-2023 10:52-0400 Heart rate 88 /min [facility] 09-23-2023 10:52-0400 SaO2% (BldA) [Mass fraction] 97 % [facility] 09-23-2023 10:52-0400 Systolic blood pressure 128 mm[Hg] [facility] 05-23-2023 10:30-0500 Body height 149.86 cm Suzanne Glynn Other [facility] Other 05-23-2023 10:30-0500 Body mass index (BMI) [Ratio] 24.84 kg/m2 Suzanne Glynn Other [facility] Other 05-23-2023 10:30-0500 Body weight 55.79 kg Suzanne Glynn Other [facility] Other 05-23-2023 10:30-0500 Diastolic blood pressure 84 mm[Hg] Suzanne Glynn Other [facility] Other 05-23-2023 10:30-0500 SaO2% (BldA) [Mass fraction] 93 % Suzanne Glynn Other [facility] Other 05-23-2023 10:30-0500 Systolic blood pressure 140 mm[Hg] Suzanne Glynn Other [facility] Other 04-11-2023 13:00-0400 Body height 149.86 cm Suzanne Glynn Other [facility] Other 04-11-2023 13:00-0400 Body mass index (BMI) [Ratio] 23.43 kg/m2 Suzanne Glynn Other [facility] Other 04-11-2023 13:00-0400 Body weight 52.62 kg Suzanne Glynn Other [facility] Other 04-11-2023 13:00-0400 Diastolic blood pressure 79 mm[Hg] Suzanne Glynn Other [facility] Other 04-11-2023 13:00-0400 Systolic blood pressure 118 mm[Hg] Suzanne Glynn Other [facility] Other 07-13-2022 12:30-0500 Body height 149.86 cm Suzanne Glynn Other [facility] Other 07-13-2022 12:30-0500 Body mass index (BMI) [Ratio] 24.44 kg/m2 Suzanne Glynn Other [facility] Other 07-13-2022 12:30-0500 Body weight 54.89 kg Suzanne Glynn Other [facility] Other 07-13-2022 12:30-0500 Diastolic blood pressure 72 mm[Hg] Suzanne Glynn Other [facility] Other 07-13-2022 12:30-0500 SaO2% (BldA) [Mass fraction] 98 % Suzanne Glynn Other [facility] Other 07-13-2022 12:30-0500 Systolic blood pressure 122 mm[Hg] Suzanne Glynn Other [facility] Other Encounters Encounter Date Encounter Type Care Provider Facility Start: 11-12-2023 End: 11-12-2023 ambulatory [facility] Start: 10-30-2023 End: 10-30-2023 ambulatory [facility] Work Phone: Start: 10-30-2023 End: 10-30-2023 Patient encounter procedure [facility] Physician [facility] Work Phone: Start: 10-24-2023 Non-patient / Non-visit [facility] Physician [facility] [employer] Work Phone: Start: 10-23-2023 Non-patient / Non-visit [facility] Physician [facility] [employer] Work Phone: Start: 10-22-2023 Non-patient / Non-visit [facility] Physician [facility] [employer] Work Phone: Start: 09-23-2023 End: 09-23-2023 ambulatory [facility] Work Phone: Start: 09-23-2023 End: 09-23-2023 Patient encounter procedure [facility] Physician [facility] Work Phone: Start: 05-23-2023 End: 05-23-2023 ambulatory Suzanne Glynn Other [facility] Other Start: 05-23-2023 Office outpatient vi sit 15 minutes Suzanne Glynn [facility] Start: 05-10-2023 End: 05-10-2023 ambulatory [facility] Start: 04-16-2023 End: 04-16-2023 ambulatory Suzanne Glynn Other [facility] Other Start: 04-16-2023 Telephone encounter Suzanne Glynn [facility] Start: 04-11-2023 End: 04-11-2023 ambulatory Suzanne Glynn Facility:[facility] Start: 04-11-2023 Office outpatient vi sit 15 minutes Suzanne Glynn [facility] Start: 04-11-2023 End: 04-11-2023 ambulatory MD Suzanne Glynn Work Phone: [facility] Work Phone: Start: 04-11-2023 End: 04-11-2023 Departed Referred MD Suzanne Glynn Work Phone: [facility] [place] Work Phone: Start: 02-26-2023 End: 02-26-2023 ambulatory KATIE [facility] Start: 11-19-2022 End: 11-20-2022 ambulatory KATARINA COYLE Facility:[facility] Start: 11-12-2022 End: 11-12-[address] SUZANNE GLYNN Facility:[facility] Start: 11-04-2022 End: 11-05-[address] SUZANNE GLYNN Facility:[facility] Start: 07-16-2022 End: 07-16-2022 ambulatory Suzanne Glynn Other [facility] Other Start: 07-16-2022 Telephone encounter Suzanne Glynn [facility] Start: 07-13-2022 End: 07-13-2022 ambulatory Suzanne Glynn Other [facility] Other Start: 07-13-2022 Office outpatient vi sit 15 minutes Suzanne Glynn [facility] Start: 07-07-2022 End: 07-09-[address] KIRBY CONNOR . Facility:[facility] Start: 06-12-2022 End: 06-13-2022 ambulatory ARNIE JACOBS . Facility:[facility] Start: 05-10-2022 End: 05-11-[address] SUZANNE GLYNN Facility:[facility] Procedures Date Procedure Procedure Detail Performing Clinician Start: 10-22-2023 Blood Culture 1 Start: 10-22-2023 Blood Culture 2 Plan of Treatment Date Care Activity Detail Author Start: 04-11-2023 Bacteria identified in Urine by Culture [facility] XR Chest 2 Views [facility] Immunizations Immunization Date Immunization Notes Care Provider Fa cility 05-05-2022 COVID-19 Pfizer (Pediatric) Suzanne Glynn Other [facility] 11-14-2021 pneumococcal polysaccharide vaccine, 23 valent Suzanne Glynn Other [facility] 10-19-2021 COVID-19 Vaccine Pfi zer - Documentation Purposes Only Suzanne Glynn Other [facility] 04-06-2021 COVID-19 Vaccine Pfi zer - Documentation Purposes Only Suzanne Glynn Other [facility] Payers Date Payer Category Payer Self-pay 1957 Medicare [id number] 2. [id number] 1945 Unknown [id number] [id number] [id number] 1945 Unknown [id number] 2.16.84 [id number] 1945 Unknown [id number] 2.16.84 [id number] 1945 Unknown [id number] 2.16.84 [id number] 1945 Unknown [id number] 2.16.84 [id number] 1945 Unknown [id number] 2.16.84 [id number] Unknown Duy ROMERO/JORJE [id number] Unknown [id number] 2.16.8 [id number] Social History Date Type Detail Facility Unknown if ever smoked [facility] Other Sex Assigned At Sex Assigned At Bir th [facility] [employer] Other Start: 1945 Sex Assigned At Female F [facility] Start: 05-23-2023 Tobacco smoking status NHIS Smoker (finding) [facility] Clinical Notes 07-13-2022 to 11-12-2023 Note Date & Type Note Facility 11-12-2023 Note Patient here for 6 m o follow up hypertension and atrial tachycardia. She was started on metoprolol at last apt in May 2023. She was admitted to [facility] last month for sepsis and pneumonia. She is feeling much better. Denies chest pain, SOB, palpitations, and lightheadedness/syncope. Review of Systems Respiratory: Positive for cough. All other systems reviewed and are negative. [facility] 11-12-2023 Note Cardiovascular Medic [facility] SUBJECTIVE Chief Complaint Patient presents with Palpitations Casi Frazier is a 78 y.o. female here for follow-up. HPI PMHx: palpitations s/p LOOP implant, COPD She is feeling well today. She was hospitalized for PNA last month. Breathing is better today. Denies c/o CP, orthopnea, PND, LE edema, dizziness/LH, palpitations, syncope. Patient Active Problem List Diagnosis Tachycardia Essential hypertension Encounter for loop recorder check Paroxysmal SVT (supraventricular tachycardia) (CMS/HCC) Past Medical History: Diagnosis Date Abnormal ECG Asthma Emphysema of lung (CMS/HCC) Pleurisy Tachycardia Family History Problem Relation Name Age of Onset Dementia Mother Heart attack Father 52 Liver cancer Brother Stroke Brother Social History Tobacco Use Smoking status: Every Day Packs/day: 1 Types: Cigarettes Smokeless tobacco: Never Substance Use Topics Alcohol use: Not Currently No Known Allergies ROS Respiratory: Positive for cough. All other systems reviewed and are negative. OBJECTIVE Visit Vitals BP 122/82 (BP Location: Left arm, Patient Position: Sitting) Pulse 107 Ht 1.499 m (4' 11 ) Wt 50.8 kg (112 lb) SpO2 95% BMI 22.62 kg/m??? Smoking Status Every Day BSA 1.45 m??? Medications: Current Outpatient Medications: albuterol 90 mcg/actuation inhaler, INHALE 2 PUFFS BY MOUTH EVERY 4 HOURS IF NEEDED FOR SHORTNESS OF BREATH, Disp: , Rfl: metoprolol succinate XL (Toprol-XL) 25 mg 24 hr tablet, take 1 tablet by mouth every morning, Disp: 90 tablet, Rfl: 3 Physical Exam Vitals reviewed. Constitutional: Appearance: Normal appearance. She is normal weight. HENT: Head: Normocephalic and atraumatic. Right Ear: External ear normal. Left Ear: External ear normal. Eyes: Extraocular Movements: Extraocular movements intact. Conjunctiva/sclera: Conjunctivae normal. Pupils: Pupils are equal, round, and reactive to light. Neck: Vascular: No carotid bruit. Cardiovascular: Rate and Rhythm: Regular rhythm. Tachycardia present. Pulses: Normal pulses. Heart sounds: Normal heart sounds. Pulmonary: Effort: Pulmonary effort is normal. Breath sounds: Normal breath sounds. Abdominal: General: Bowel sounds are normal. Palpations: Abdomen is soft. Musculoskeletal: Cervical back: Neck supple. Right lower leg: No edema. Left lower leg: No edema. Skin: General: Skin is warm and dry. Neurological: General: No focal deficit present. Mental Status: She is alert and oriented to person, place, and time. Psychiatric: Mood and Affect: Mood normal. Behavior: Behavior normal. Thought Content: Thought content normal. Judgment: Judgment normal. Labs: No results found for any previous visit. No results found for: EXTCMP , BMPR1A , CBCDIF , BNP , LASAP , RED Testing/Procedures: 11/2022 TTE ASSESSMENT/PLAN: Diagnoses and all orders for this visit: Paroxysmal SVT (supraventricular tachycardia) ([facility]) Encounter for loop recorder check Essential hypertension Atrial tachycardia ([facility]/HCC) Chronic obstructive pulmonary disease, unspecified COPD type (CMS/HCC) -Long RP tachycardia, likely atrial tachycardia -SVT -S/P LOOP implant -COPD -HTN PLAN: -Reviewed her LOOP data with Dr. Coyle. There was a noted episode of a.fib lasting 2 minutes but there are no tracings available for review to confirm this. Reading may have been AT vs SVT which she has a known hx of. Since there are no tracings available, will continue to monitor. -She is tachycardic today in clinic. Her LOOP notes she has had some intermittent episodes of tachycardia and SVT noted today. -Will increase her Toprol to 37.5mg daily. Follow up in about 6 months (around 05/14/2024). Debra Kay NP [facility] Cardiovascular [facility] 05-23-2023 Evaluation note Encounter Date Diagnosis Assessment Notes May, Pulmonary emphysema, unspecified emphysema type (ICD-10 - J43.9) Continue to followup w [employer] . Finish prescribed meds. [facility] Other 11-03-2023 NoteUT Electrophysiology Consult Note Reason for visit: [...] and elevated HR likely related Discussed seeing director of labor and delivery to consider maintenance inhalers 02/26/23: She had recent monitor showed concern for long RP tachycardia which was likely atrial tachycardia. It was recommended patient get an echocardiogram and a loop monitor for further evaluation. Echo 11/19/2022 shows normal LVEF, normal size LA And RA, normal RV size and function, moderate pulmonary hypertension RVSP 55 and she follows pulmonary with [facility], mild to moderate tricuspid regurgitation, small anterior [...] Dr. Jacobs. she was recently seen in [facility] ED for tachycardia at 164 bpm. She [...] xanthelasma ENMT Ears: n (more content not included)...[facility] 04-11-2023 Evaluation note* Encounter Date Diagnosis Assessment Notes Treatment Notes Treatment Clinical Notes Apr, Dysuria (ICD-10 - R30.0) Reassured that the UA was normal. Will check culture before antibiotics as her symptoms have improved. Apr, Pulmonary emphysema, unspecified emphysema type (ICD-10 - J43.9) no refills needed. does see pulmonology regularly. [facility] Other 08-22-2023 NoteUT Electrophysiology Consult Note Reason [...] RVSP 55 and she follows pulmonary with [facility], mild to moderate tricuspid regurgitation, small anterior [...] Dr. Jacobs. she was recently seen in [facility] ED for tachycardia at 164 bpm. She [...] Murmur: not heard Diastoli (more content not included)...[facility] 02-26-2023 NotePatient here for wound check s/p loop recorder placement on 02/19/[address] Coyle at [facility]01-09-2023 Evaluation note* Encounter Date Diagnosis Assessment Notes Treatment Notes Treatment Clinical Notes Jul, Shortness of breath (ICD9-CM - 786.05) [facility] Other 01-06-2023 Evaluation note* Encounter Date Diagnosis Assessment Notes Treatment Notes Treatment Clinical Notes Jul, Other emphysema (ICD-10 - J43.8) Continue home oxygen. Finishing rx for prednisone. Will notify her director of labor and delivery of her hospitalization and hopefully move up her followup appt there. Will send not today. [facility] Other Evaluation noteNo assessment information available [facility] Work Phone: Evaluation noteNo InformationNort ACTV8 Other Evaluation note* Diagnosis Onset Date Resolution Status COPD (chronic obstructive pulmonary disease) acute Pneumonia acute [facility] Work Phone: Hishybj general Narrative - Reported* Type Description Date Medical History Pleurisy Medical History Asthma Medical History COPD Surgical History Vocal Cord - paralysis Surgical History Tonsillectomy Hospitalization History [place] Hospitalization History See past surgical histor y [facility] Other Hisqlcq general Narrative - Reported* Type Description Date Medical History Pleurisy Medical History Asthma Medical History COPD Medical History Afib Surgical History Vocal Cord - paralysis Surgical History Tonsillectomy Surgical History Loop procedure Hospitalization History [place] Hospitalization History See past surgical histor y [facility] Other Hisstlj general Narrative - Reported* Type Description Date Medical History Pleurisy Medical History Asthma Medical History COPD Medical History Afib Surgical History Vocal Cord - paralysis Surgical History Tonsillectomy Surgical History Loop procedure Hospitalization History [place] Hospitalization History [facility] 05/2023 [facility] Other Summary Purpose Family History No Family History Records Found Relationship Condition Age at Onset Recorded Date/T barb father Unknown family member Unknown Not Specified Unknown Advance Directives No Advanced Directives Records Found Advance Directive Response Recorded Date/ Time Advance Directives No April 15, 2023 7:39pm Chief Complaint and Reason for Visit Chief Complaint Notes for Equipment Coverage-Oxygen Chief Complaint Notes for Equipment Coverage-Oxygen check up Reason for Visit COPD (chronic obstru ctive pulmonary disease) Pneumonia Additional Source Comments REASON FOR VISIT (unrecogniz ed section and content) [facility] Follow upprescr iption refillCHECK UPurine cxTB INFORMATION SOURCE (unrecogn ized section and content) DATE CREATED AUTHOR 11/19/2022 [facility] DATE CREATED AUTHOR AUTHOR'S ORGANIZ ATION 04/17/2023 [facility] DATE CREATED AUTHOR AUTHOR'S ORGANIZ ATION 11/16/2023 [facility] Care Teams (unrecognized sec tion and content) Team Status: Inactive Member Role Status Dates Suzanne Glynn MD Attending Provider Active Team Status: Active Member Role Status Dates Suzanne Glynn MD Primary Care Provider Active Team Status: Inactive Member Role Status Dates Suaznne Glynn MD Primary Care Provide r, Attending Provider Active Start: September 23, 2023 End: September 23, 2023 Team Status: Active Member Role Status Dates Suzanne Glynn MD Primary Care Provide r, Attending Provider Active Start: October 22, 2023 Team Status: Active Member Role Status Dates Suzanne Glynn MD Primary Care Provide r, Attending Provider Active Start: October 23, 2023 Team Status: Active Member Role Status Dates Suzanne Glynn MD Primary Care Provide r, Attending Provider Active Start: October 24, 2023 Team Status: Inactive Member Role Status Dates Suzanne Glynn MD Primary Care Provide r, Attending Provider Active Start: October 30, 2023 End: October 30, 2023 Goals (unrecognized section and content) Goals [...] BE BASED ON THE PRIMARY CLINICAL RECORDS. [employer] provides no warranty or guarantee of the accuracy or completeness of information in this document.
== END 2023-12-11 12:37 | disposition home or self-care (01) ==
LOC: CT 12:36
PROVIDERS: PCP Family Medicine; Visit Provider Internal Medicine
DX: R91.8 Other nonspecific abnormal finding of lung field (principal); J42 Unspecified chronic bronchitis
CPT/HCPCS: 71250

== ENCOUNTER 2024-03-24 10:17 | Emergency (ER) | payer MEDICARE, SELFPAY ==
[2024-03-24] VITALS (17 sets, daily range): BP systolic 107–136; BP diastolic 71–86; PULSE 69–90; TEMP 37.1; O2SAT 70–97; BMI 25.8
--- NOTE | 2024-03-24 10:42 | ECG_ITS ---
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
--- NOTE | 2024-03-24 10:42 | XR_ITS ---
The [address] [address] Patient Name: TOM MCDANIELS MRN: [id number] date: 1945 Sex: F Assigned Patient Location: ER Current Patient Location: ER Accession/Order Number: [id number] Exam Date: 03/24/2024 10:50 Report Date: 03/24/2024 11:52 At the request of: DAVIS MCCORMICK Procedure: XR chest 2V EXAMINATION: XR chest 2V HISTORY: left arm pain COMPARISON: 10/22/2023 TECHNIQUE: PA and lateral FINDINGS: LUNGS: Biapical pleural parenchymal scarring, stable. Minimal right basilar opacity, atelectasis is favored. Hyperinflation. VASCULATURE: No increased pulmonary vasculature. PLEURA: No pneumothorax, effusion, or pleural thickening. CARDIAC: No cardiomegaly or cardiac silhouette abnormality. MEDIASTINUM: No visible mass or adenopathy. loop recorder BONES: No fracture or visible bone lesion. OTHER: Negative. XR/XR chest 2V IMPRESSION: Minimal right basilar atelectasis Electronically authenticated by: TEENA FIELDS Date: 03/24/2024 11:52
[2024-03-24 10:48] LABS: Basophils Absolute Auto 0.1 10^3/uL (0.0-0.1); Basophils Percent Auto 1.4 % (0.2-2.0); Eosinophils Absolute Auto 0.2 10^3/uL (0.0-0.7); Eosinophils Percent Auto 5.6 % (0.9-7.0); Hematocrit 42.2 % (36.0-48.0); Hemoglobin 13.5 g/dL (12.0-16.0); Lymphocytes Absolute Auto 1.5 10^3/uL (1.2-3.8); Lymphocytes Percent Auto 35.9 % (20.5-60.0); Mean Corpuscular Hemoglobin 30.5 pg (26.7-34.0); Mean Corpuscular Volume 95.3 fL (81.0-99.0); Mean Platelet Volume 11.6 fL (9.5-13.5); Monocytes Absolute Auto 0.4 10^3/uL (0.3-0.8); Monocytes Percent Auto 9.1 % (1.7-12.0); Neutrophils Absolute Auto 2.1 10^3/uL (1.4-6.5); Platelet Count 199 10^3/uL (150-450); Red Blood Count 4.43 10^6/uL (4.20-5.40); Red Cell Distribution Width 13.2 % (11.0-15.0); White Blood Count 4.3 10^3/uL (4.0-11.0)
[2024-03-24 11:07] LABS: Alanine Aminotransferase 17 U/L (14-59); Albumin Level 3.4 g/dL (3.4-5.0); Alkaline Phosphatase 89 U/L (46-116); Anion Gap 8.3; Aspartate Amino Transferase 22 U/L (15-37); BUN Creatinine Ratio 17.8; Bilirubin Total 0.2 mg/dL (0.2-1.0); Calcium 8.9 mg/dL (8.5-10.1); Carbon Dioxide 34.2 mmol/L (21.0-32.0); Chloride 105 mmol/L (98-107); Estimated GFR (African America >60 (>=60); Estimated GFR (Non-African Ame >60 (>=60); Globulin 3.4 g/dL; Glucose 93 mg/dL (74-106); Potassium 4.5 mmol/L (3.5-5.1); Sodium 143 mmol/L (136-145); Total Protein 6.8 g/dL (6.4-8.2); Troponin I High Sensitivity 6.5 pg/mL (4.0-51.3)
--- NOTE | 2024-03-24 12:15 | ED.GENADUL1 ---
HPI HPI - General Adult General Chief complaint: Chest Pain Stated complaint: CHEST PAIN Time Seen by Provider: 03/24/24 11:58 Source: patient Mode of arrival: walk-in Limitations: no limitations History of Present Illness HPI narrative: Patient is a 78-year-old female who is presenting to the ER with a chief complaint of left arm pain about the left elbow and has some difficulty with numbness and tingling her left hand. Patient also has some heaviness to her left arm. This was very short-term, approximately 10 to 15 minutes. Patient had no headache. No neck pain. She has had no other strokelike signs or symptoms. Patient's had no neck pain previously. No chest pain, tightness; no shortness of breath. No acute complaints. No abdominal pain, nausea or vomiting. Patient's daughter is at bedside. Patient has no history of stroke. Patient does take metoprolol. Patient does not take an aspirin or any type of blood thinners. All systems are negative except as noted/marked. All systems reviewed and otherwise negative. Nurses note and vital signs reviewed and patient is not hypoxic. General: The patient appears well and in no apparent distress. Patient is resting comfortably on cart. Patient is not toxic, lethargic, or listless Skin: Warm, dry, no pallor noted. There is no rash noted. No petechiae, purpura. Head: Normocephalic, atraumatic; patient has no midline or paracervical tenderness to palpation. Eye: Normal conjunctiva, no drainage, EOMI. PERRL Ears, Nose, Mouth, and Throat: oral mucosa is moist. Nares patent. Mouth without vesicles. Cardiovascular: Regular Rate and Rhythm, no murmur, gallop, rub Respiratory: Patient is in no distress, no accessory muscle use, lungs are clear to auscultation, no wheezing, rales or rhonchi Back: non-tender, no CVA tenderness bilaterally to percussion. No CT LS midline pain GI: no tenderness Musculoskeletal: Patient has full range of motion of all of the extremities, no motor, sensory, or focal neurological deficits Neurological: A&O x4, normal speech; NIH 0 Psychiatric: Cooperative Related Data Home Medications ?Medication ?Instructions ?Recorded ?Confirmed albuterol sulfate 90 mcg/actuation 2 puff inhalation Q4H PRN 05/20/23 03/24/24 aerosol inhaler shortness of breath or wheezing metoprolol succinate 25 mg 25 mg PO QAM 05/20/23 03/24/24 tablet,extended release 24 hr Previous Rx's ?Medication ?Instructions ?Recorded prednisone 10 mg tablet See Rx Instructions .Route 10/24/23 .COMPLEX 12 days #42 tabs Allergies Allergy/AdvReac Type Severity Reaction Status Date / Time No Known Drug Allergies Allergy Unverified 02/15/23 11:38 Opioid HPI Opioid Management Most Recent Opioid Data: Last Pain Scale 3 03/24/24 10:33 Last ORT Total Score 0 10/22/23 17:16 Last ORT Risk Category Low Risk 10/22/23 17:16 [facility] Medical History (Updated 03/24/24 @ 13:06 by Omer Helm MD) Cataracts, bilateral ?H26.9 - Unspecified cataract (ICD-10) O2 dependent ?Z99.81 - Dependence on supplemental oxygen (ICD-10) Pleurisy ?R09.1 - Pleurisy (ICD-10) COPD (chronic obstructive pulmonary disease) ?J44.9 - Chronic obstructive pulmonary disease, unspecified (ICD-10) Asthma ?J45.909 - Unspecified asthma, uncomplicated (ICD-10) Surgical History History of tubal ligation ?Z98.51 - Tubal ligation status (ICD-10) History of tonsillectomy ?Z90.89 - Acquired absence of other organs (ICD-10) Family History Other Family history of cancer Heart disease Social History Within the past year, how often did you have a drink containing alcohol: monthly or less Within the past year, how many standard drinks containing alcohol did you have on a typical day: 1 or 2 Total score: 0 Score interpretation: A score less than 3 is consistent with normal alcohol consumption. Smoking status: Heavy tobacco smoker Non-prescribed substance use: denies use Previous occupational history: RETIRED Known occupational exposures/hazards: No Highest level of school completed/degree received: high school graduate Little interest or pleasure in doing things: not at all Feeling down, depressed, or hopeless: not at all Do you think of yourself as: straight/heterosexual Gender Identity: female Exam Constitutional Vital Signs, click to edit/add: Last Vital Signs Temp 98.7 F 03/24/24 10:25 Pulse 75 03/24/24 12:48 Resp 18 03/24/24 12:48 BP 107/77 03/24/24 12:48 Pulse Ox 95 03/24/24 12:48 O2 Del Method Room Air 03/24/24 10:25 Course Vital Signs Vital signs: Vital Signs Pulse Rate 85 03/24/24 10:24 Respiratory Rate 25 H 03/24/24 10:24 Temperature 98.7 F 03/24/24 10:25 Pulse Rate 75 03/24/24 12:48 Respiratory Rate 18 03/24/24 12:48 Blood Pressure 107/77 03/24/24 12:48 Pulse Oximetry 95 03/24/24 12:48 Oxygen Delivery Method Room Air 03/24/24 10:25 Medical Decision Making MDM Narrative Medical decision making narrative: Patient cardiac shows no acute findings. EKG, chest x-ray, lab work showed no acute findings. Education was done on cervical radiculopathy which seems that patient most likely had. However, education was done on TIA as well in case the mild heaviness the patient was explaining could have been possible stroke. Patient has been completely asymptomatic and not having any pain to her left arm during her ER visit. Patient had education of cervical radiculopathy, TIA, patient started taking baby aspirin prophylactically. If patient has additional acute concerns, patient will follow-up PCP or any strokelike signs or symptoms patient knows to return to the ER immediately or call 911. Education done at discharge paperwork as well Lab Data Labs: Lab Results 03/24/24 Range/Units 10:30 WBC 4.3 (4.0-11.0) 10^3/uL RBC 4.43 (4.20-5.40) 10^6/uL Hgb 13.5 (12.0-16.0) g/dL Hct 42.2 (36.0-48.0) % MCV 95.3 (81.0-99.0) fL MCH 30.5 (26.7-34.0) pg MCHC 32.0 (29.9-35.2) g/dL RDW 13.2 (11.0-15.0) % Plt Count 199 (150-450) 10^3/uL MPV 11.6 (9.5-13.5) fL Neut % (Auto) 48.0 (43.0-75.0) % Lymph % (Auto) 35.9 (20.5-60.0) % [place] % (Auto) 9.1 (1.7-12.0) % Eos % (Auto) 5.6 (0.9-7.0) % Baso % (Auto) 1.4 (0.2-2.0) % Neut # (Auto) 2.1 (1.4-6.5) 10^3/uL Lymph # (Auto) 1.5 (1.2-3.8) 10^3/uL [place] # (Auto) 0.4 (0.3-0.8) 10^3/uL Eos # (Auto) 0.2 (0.0-0.7) 10^3/uL Baso # (Auto) 0.1 (0.0-0.1) 10^3/uL Abs Immat Gran (auto) 0.00 (0.00-0.03) 10^3/uL Imm/Tot Granulo (auto) 0.0 (0.0-0.5) % Sodium 143 (136-145) mmol/L Potassium 4.5 (3.5-5.1) mmol/L Chloride 105 (98-107) mmol/L Carbon Dioxide 34.2 H (21.0-32.0) mmol/L Anion Gap 8.3 BUN 16.0 (7.0-18.0) mg/dL Creatinine 0.90 (0.55-1.02) mg/dL Est GFR ( Amer) >60 (>=60) Est GFR (Non-Af Amer) >60 (>=60) BUN/Creatinine Ratio 17.8 Glucose 93 (74-106) mg/dL Calcium 8.9 (8.5-10.1) mg/dL Total Bilirubin 0.2 (0.2-1.0) mg/dL AST 22 (15-37) U/L ALT 17 (14-59) U/L Alkaline Phosphatase 89 (46-116) U/L Troponin I High Sens 6.5 (4.0-51.3) pg/mL Total Protein 6.8 (6.4-8.2) g/dL Albumin 3.4 (3.4-5.0) g/dL Globulin 3.4 g/dL Albumin/Globulin Ratio 1.0 ECG Data Attestation: I personally reviewed and interpreted this ECG as follows: (EKG interpretation. Normal sinus rhythm at 86 beats a minute. Normal axis deviation. No acute ST elevation, no acute ectopy. QTc 394) Discharge Plan Discharge Chief Complaint: Chest Pain Clinical Impression: Arm pain, left, Cervical radiculopathy Patient Disposition: Home, Self-Care Time of Disposition Decision: 13:06 Condition: Fair Prescriptions / Home Meds: No Action albuterol sulfate 90 mcg/actuation HFA aerosol inhaler 2 puff INHALATION Q4H PRN (Reason: shortness of breath or wheezing) metoprolol succinate 25 mg tablet extended release 24 hr 25 mg PO QAM prednisone 10 mg tablet See Rx Instructions .ROUTE .COMPLEX 12 Days Qty: 42 0RF Rx Instructions: 6 tabs daily x 2 days, then 5 tabs daily x 2 days, then 4 tabs daily x 2 days, then 3 tabs daily x 2 days, then 2 tabs daily x 2 days, then 1 tab daily x 2 days, then STOP Print Language: Iraqi Instructions: Cervical Radiculopathy (ED), Arm Pain (ED) Additional Instructions: Start taking baby aspirin daily as discussed. Patient education on TIA, transient ischemic attack, mini stroke was given to for educational purposes only, this was discussed at bedside. If symptoms continue, follow-up with PCP for further testing. If you are having any strokelike signs or symptoms, please return to the ER immediately or call 911 Referrals: Suzanne aCbral MD [Primary Care Provider] - 1 week Discharge Date/Time: 03/24/24 13:12
== END 2024-03-24 13:12 | disposition home or self-care (01) ==
PROVIDERS: Emergency Provider Emergency Medicine; PCP Family Medicine
DX: M54.12 Radiculopathy, cervical region (principal); M79.602 Pain in left arm; F17.200 Nicotine dependence, unspecified, uncomplicated
CPT/HCPCS: 36415; 71046; 80053; 84484; 85025; 93005; 99285

== ENCOUNTER 2024-12-23 09:57 | Outpatient (OUT) | payer MEDICARE, SELFPAY ==
--- OUTSIDE RECORDS SUMMARY | 2024-10-19 09:37 | XMS_ITS ---
Author Organization [facility] in [place] Address [address] [place] [address] Care Team Providers Care Fruit Sprayer Name Role Phone Suzanne Cabral Primary Care Provider Joseph Godfrey Le Mayuri [phone] REASON FOR VISIT Appointment Confirmation Encounters Encounter Location Date Provider Diagnosis Pulmonary Medicine [place] [address] [place] [address] 10/19/2024 Godfrey Gonzalez Plan Of Treatment Next Appt Details Provider Name:Godfrey Gonzalez, 12/29/2024 03:00:00 PM, [address] [place], [address], Progress Notes * Casi MCDANIELS EDOB: (78 yo F)Acc No.[id number]:10/19/2024 Patient: Jasmin Casi RINCON :1945 A ge:78 Y S ex:Female Address:[address], [address], [place], [address] * true * Date: Generated for Printi ng/Faxing/eTransmitting on: 0 12/23/2024 09:59 AM EDT
--- OUTSIDE RECORDS SUMMARY | 2024-12-10 07:44 | XMS_ITS ---
Author Organization The [facility] in [place] Address [address] [place] [address] Care Team Providers Care Pants Busheler Name Role Phone Suzanne Cabral Primary Care Provider Joseph Godfrey Le Mayuri [phone] REASON FOR VISIT Appointment Reschedule Encounters Encounter Location Date Provider Diagnosis Pulmonary Medicine [place] [address] [place] [address] 12/10/2024 Godfrey Gonzalez Plan Of Treatment Next Appt Details Provider Name:Godfrey Gonzalez, 12/29/2024 03:00:00 PM, [address] [place], [address], Progress Notes * Casi MCDANIELS EDOB: (79 yo F)Acc No.[id number]:12/10/2024 Patient: Jasmin Casi RINCON :1945 A ge:79 Y S ex:Female Address:[address], [address], [place], [address] * true * Date: Generated for Printi ng/Faxing/eTransmitting on: 0 12/23/2024 09:59 AM EDT
--- OUTSIDE RECORDS SUMMARY | 2024-12-15 09:00 | XMS_ITS ---
Author Organization The [facility] in [place] Address [address] [place] [address] Care Team Providers Care Jackscrew Worker Name Role Phone Suzanne Cabral Primary Care Provider Joseph vasile Lisa Godfrey Unavailable [phone] REASON FOR VISIT 1YEAR-COPD Encounters Encounter Location Date Provider Diagnosis Pulmonary Medicine [place] [address] [place] [address] 12/15/2024 Godfrey Gonzalez Plan Of Treatment Next Appt Details Provider Name:Godfrey Gonzalez, 12/29/2024 03:00:00 PM, [address] [place], [address], Progress Notes * Casi MCDANIELS EDOB: 8 (79 yo F)Acc No.[id number]:12/15/2024 UNLOCKED PROGRESS NOTE Follow Up Patient: Jasmin HOPECasi GARCIA Provider: Stacy Gonzalez DO :1945 A ge:79 Y S ex:Female Date:12/15/2024 Address:[id number] Pcp:Suzanne Cabral Subjective: * Chief Complaints: * 1 . 1YEAR-COPD. * Medical History: Objective: * Vitals: Assessment: Plan: * Treatment: * * Electronic signature of Susan Gonzalez DO on 12/23/2024 at 09:59 AM EDT Sign off status: Pending Visit Status: R /S (Rescheduled) * Provider: Stacy Gonzalez, Date: 0 12/15/2024 Generated for Serina restrepo/Rick/Hailey on: 0 12/23/2024 09:59 AM EDT
--- NOTE | 2024-12-23 | CT_ITS ---
The [address] [address] Patient Name: TOM MCDANIELS MRN: [id number] date: 1945 Sex: F Assigned Patient Location: CT Current Patient Location: CT Accession/Order Number: [id number] Exam Date: 12/23/2024 10:38 Report Date: 12/23/2024 11:04 At the request of: ARNIE JACOBS DO Procedure: CT lung screening low-dose LOW-DOSE SCREENING CHEST CT WITHOUT CONTRAST COMPARISON: 12/11/2023 and 06/13/2023 CLINICAL DATA: Current smoker for approximately 60 years. Emphysema. Spiral axial unenhanced low-dose images were obtained through the chest. Images were reviewed using both narrow and wide window settings. This CT exam was performed using one or more following dose reduction techniques: Automated exposure control, adjustment of the mA and/or kV according to patient size, or use of iterative reconstruction technique. The heart is within normal limits for size. There is a trace amount of pericardial fluid. There is minor coronary artery disease. No aortic aneurysm is seen. There is atherosclerotic plaque at the aortic arch. There are similar small mediastinal lymph nodes. The bony structures are intact. There is obstructive lung disease. Similar areas of scarring are present bilaterally. There is a developing irregular opacity with surrounding tree-in-bud appearance at the basilar, posterior lateral right upper lobe. No other consolidation, pleural effusion or pneumothorax is seen. No other nodularity is identified. Limited imaging through the upper abdomen shows no contributory findings. CT/CT lung screening low-dose IMPRESSION: OBSTRUCTIVE LUNG DISEASE. DEVELOPING IRREGULAR OPACITY WITH SURROUNDING TREE-IN-BUD APPEARANCE AT THE RIGHT LOWER LOBE. PATIENT HAS SHOWN SIMILAR FINDINGS AT DIFFERENT AREAS ON PREVIOUS EXAMS. AN INFECTIOUS OR INFLAMMATORY PROCESS IS FAVORED. CLINICAL FOLLOW-UP IS SUGGESTED ALONG WITH REPEAT CT TO ASSESS FOR LEAD LOCATION. Lung RADS category 1S - negative with developing parenchymal changes suspected to be infectious or inflammatory CT follow-up in the next 3-6 months following treatment is suggested. Impression dictated by: Bethany Abreu M.D. 12/23/2024 11:04 AM Dictation Location: [place] [address] Electronically authenticated by: [id number] Y Date: 12/23/2024 11:04
--- OUTSIDE RECORDS SUMMARY | 2024-12-23 10:00 | XMS_ITS | Clinical Summary ---
Author Organization [facility] Healthcare Address [address] [facility] [place] [address] Care Team Providers Care Senior Sustainability Advisor Name Role Phone Unavailable Primary Care Provider Unavailabl e Social History Tobacco Use Types Packs/Day Years Used Date Smoking Tobacco: Never Assessed Comments Unknown Sex and Gender Information Value Date Recorded Sex Assigned at Not on file Legal Sex Female 7:40 PM EDT Gender Identity Not on file Sexual Orientation Not on file Plan of Treatment Not on file
== END 2024-12-23 09:58 | disposition home or self-care (01) ==
LOC: CT 09:58
PROVIDERS: PCP Family Medicine; Visit Provider Internal Medicine
DX: J43.2 Centrilobular emphysema (principal); F17.219 Nicotine dependence, cigarettes, with unspecified nicotine-induced disorders; J43.9 Emphysema, unspecified; R91.8 Other nonspecific abnormal finding of lung field
CPT/HCPCS: 71271

== ENCOUNTER 2025-01-05 09:49 | Outpatient (OUT) | payer MEDICARE, SELFPAY | END 2025-01-05 09:50 | disposition home or self-care (01) | LOC: PST 09:49 | PROVIDERS: PCP Family Medicine; Visit Provider Internal Medicine Cardiovascular Disease | DX: Z01.818 Encounter for other preprocedural examination (principal); I47.19 Other supraventricular tachycardia ==

== ENCOUNTER → 2025-01-12 12:30 | Day surgery (SDC) | payer MEDICARE, SELFPAY ==
--- OUTSIDE RECORDS SUMMARY | 2024-12-07 15:42 | XMS_ITS ---
Author Name Auto Generated Organization [facility] Care Team Providers Care Drum Drier Operator Name Role Phone KATARINA COYLE Referring Unavailable COLLEENKATARINA Referring Unavailable KRISTINE, MARIO ALBERTO Referring Unavailable COLLEEN, KATARINA Referring Unavailable COLLEENKATARINA Referring Unavailable COLLEENKATARINA Referring Unavailable COLLEEN, KATARINA Referring Unavailable COLLEENKATARINA Attending Unavailable DEBRA COLVIN Attending Unavailable COLLEENKATARINA Sheriff Referring Unavailable COLLEEN, KATARINA Referring Unavailable COLLEEN, KATARINA Referring Unavailable COLLEENKATARINA Sheriff Referring Unavailable KATARINA COYLE Referring Unavailable PROBLEMS DATE TYPE CONDITION / CODE ATTENDING STATUS [facility] 05/12/2024 Admitting Diagnosis Chronic obstructive pulmonary disease, unspecified / J44.9(ICD-10) KATARINA COYLE Active [facility] 03/10/2024 Admitting Diagnosis Palpitations / R00.2(ICD-10) NA Active [facility] PROCEDURES No Procedure Records Found RESULTS PROGRESS Observed: 11/17/2024 1:00 PM Status: COMPLETED Source: [facility] Electrophysiology Consult Note Reason for visit: palpitations, s/p loop implant 11/17/24 Patient is here today for a 6 month follow up per Torie Colvin CNP. Patient states she is doing good. Patient complains of dyspnea with exertion. Patient denies chest pain, leg swelling, fatigue. Patient has loop monitor, patient has questions as to how long she has to keep loop monitor in. Reviewing the loop data there were episodes that were described as SVT which appeared to be noise Review of Systems Cardiovascular: Positive for dyspnea on exertion. 05/10/23: Here for loop data review She has had some SVT episodes, some are just noise No AF seen on loop She denies feeling these episodes She denies CP, SOB, WINKLER< LE edema She does have hx COPD and not on maintenance inhalers, she does exhibit WINKLER in office and elevated HR likely related Discussed seeing bonding agent to consider maintenance inhalers 02/26/23: She had recent monitor showed concern for long RP tachycardia which was likely atrial tachycardia. It was recommended patient get an echocardiogram and a loop monitor for further evaluation. Echo 11/19/2022 shows normal LVEF, normal size LA And RA, normal RV size and function, moderate pulmonary hypertension RVSP 55 and she follows pulmonary with [place], mild to moderate tricuspid regurgitation, small anterior [...] time. 11/[address] coyle HPI: Casi Mcdaniels is a 79 y.o. year old with past medical history of COPD who has been on prednisone and follows with Dr. Gonzalez. she was recently seen in [place] [facility] ED for tachycardia at 164 bpm. She [...] Past Medical History: Diagnosis Date Abnormal ECG Arrhythmia Asthma Emphysema of lung (CMS/HCC) Hypertension Pleurisy Tachycardia PSH: Past Surgical History: Procedure Laterality Date TONSILLECTOMY TUBAL LIGATION SH: Social Determinants of Health Tobacco Use: High Risk (11/17/2024) Patient History Smoking Tobacco Use: Every Day Smokeless Tobacco Use: Never Passive Exposure: Not on file Alcohol Use: Not on file Financial Resource Strain: Not on file Food Insecurity: Not on file Transportation Needs: Not on file Physical Activity: Not on file Stress: Not on file Social Connections: Not on file Intimate Partner Violence: Unknown (08/29/2023) [place] Safety & Environment Fear of Current or Ex-Partner: Not on file Emotionally Abused: Not on file Physically Abused: Not on file Sexually Abused: Not on file Physically or Sexually Abused: Not on file Depression: Not on file Housing Stability: Not on file Utilities: Not on file Health Literacy: Not on file Allergies: No Known Allergies Weight: 53.1kg Visit Vitals BP 122/77 Pulse 86 Ht 1.499 m (4' 11 ) Wt 53.1 kg (117 lb) SpO2 95% BMI 23.63 kg/m??? Smoking Status Every Day BSA 1.49 m??? Meds: Current Outpatient Medications on File Prior to Visit Medication Sig Dispense Refill albuterol 90 mcg/actuation inhaler INHALE 2 PUFFS BY MOUTH EVERY 4 HOURS IF NEEDED FOR SHORTNESS OF BREATH aspirin 81 mg EC tablet Take 81 mg by mouth in the morning. metoprolol succinate XL (Toprol-XL) 25 mg 24 hr tablet Take 1.5 tablets (37.5 mg) by mouth in the morning. 135 tablet 3 No current facility-administered medications on file prior [...] Labs: @LABRESULTS@ No results found for: CHOLESTEROL TOTAL , HDL , LDL CALC , LDL DIRECT , TRIGLYCERIDES , TSH , T3 TOTAL , T4 TOTAL , THYROID PEROXIDASE AB , BNP EKG: No results found for this or any previous visit (from the past 4464 hour(s)). Echo: 11/2022 TTE Stress test: Coronary angiogram: @CATH@ Diagnostic Imaging: No images are attached to the encounter. Assessment and Plan: -COPD: does not appear to be controlled well - long RP tachycardia likely atrial tachycardia - hypertension -s/p loop implant echo does not show any significant valvular abnormalities. Loop data I reflective of a lot of noise. Will reposition to get good clean data -will start low dose toprol xl 25mg daily -follow up in 6 months or sooner as needed, needs to see PCP or pulmonary to discuss COPD meds. Katarina Coyle MD Cardiac Electrophysiology [facility] OFFICE VISIT Observed: 11/17/2024 1:00 PM Status: COMPLETED Source: [facility] [id number] Casi Mcdaniels 07/1945 F Date Provider Department Center 11/17/2024 241-KATARINA COYLE [facility] Family History Problem Relation Age of Onset Dementia Mother Heart attack Father 52 Liver cancer Brother Stroke Brother Family Status - Relation Status Age at Mother Father Brother Level of Service:92656 ME OFFICE/OUTPATIENT ESTABLISHED LOW MDM 20 MIN PROGRESS Observed: 05/12/2024 1:40 PM Status: COMPLETED Source: [facility] Patient here for 6 mo follow up SVT and hypertension. Had EKG and labs in Mar 2024. She's doing very well she says. Denies chest pain, SOB, palpitations, and lightheadedness/syncope. Review of Systems All other systems reviewed and are negative. PROGRESS Observed: 05/12/2024 1:40 PM Status: COMPLETED Source: [facility] Cardiovascular Medicine [facility] SUBJECTIVE Chief Complaint Patient presents with SVT Casi Mcdaniels is a 78 y.o. female here for follow-up. HPI PMHx: palpitations s/p LOOP implant, COPD Denies any cardiac complaints. HR at home has been in the 80s. Denies c/o CP, dyspnea, orthopnea, PND, LE edema, dizziness/LH, palpitations, syncope. Patient Active Problem List Diagnosis Tachycardia Essential hypertension Encounter for loop recorder check Paroxysmal SVT (supraventricular tachycardia) ([facility]/HCC) COPD (chronic obstructive pulmonary disease) (CMS/HCC) Pneumonia Past Medical History: Diagnosis Date Abnormal ECG Arrhythmia Asthma Emphysema of lung (CMS/HCC) Hypertension Pleurisy Tachycardia Family History Problem Relation Name Age of Onset Dementia Mother Heart attack Father 52 Liver cancer Brother Stroke Brother Social History Tobacco Use Smoking status: Every Day Packs/day: 1 Types: Cigarettes Smokeless tobacco: Never Substance Use Topics Alcohol use: Not Currently No Known Allergies ROS All other systems reviewed and are negative. OBJECTIVE Visit Vitals BP 120/78 (BP Location: Left arm, Patient Position: Sitting) Pulse 98 Ht 1.499 m (4' 11 ) Wt 52.2 kg (115 lb) SpO2 95% BMI 23.23 kg/m??? Smoking Status Every Day BSA 1.47 m??? Medications: Current Outpatient Medications: albuterol 90 mcg/actuation inhaler, INHALE 2 PUFFS BY MOUTH EVERY 4 HOURS IF NEEDED FOR SHORTNESS OF BREATH, Disp: , Rfl: aspirin 81 mg EC tablet, Take 81 mg by mouth in the morning., Disp: , Rfl: metoprolol succinate XL (Toprol-XL) 25 mg 24 hr tablet, Take 1.5 tablets (37.5 mg) by mouth in the morning., Disp: 135 tablet, Rfl: 3 Physical Exam Vitals reviewed. Constitutional: Appearance: Normal appearance. She is normal weight. HENT: Head: Normocephalic and atraumatic. Right Ear: External ear normal. Left Ear: External ear normal. Eyes: Extraocular Movements: Extraocular movements intact. Conjunctiva/sclera: Conjunctivae normal. Pupils: Pupils are equal, round, and reactive to light. Neck: Vascular: No carotid bruit. Cardiovascular: Rate and Rhythm: Normal rate and regular rhythm. Pulses: Normal pulses. Heart sounds: Normal heart [...] Thought content normal. Judgment: Judgment normal. Labs: Ancillary Procedure on 11/11/2023 Component Date Value Ref Range Status BSA 12/26/2023 1.45 m2 Final No results found for: EXTCMP , BMPR1A , CBCDIF , BNP , LASAP , RED 03/24/2024 Hgb 13.5, hct42.2, plt 199 Cr 0.9, BUN 16, K 4.5, Na 143, eGFR >60, AST 22, ALT 17 Testing/Procedures: 11/2022 TTE ASSESSMENT/PLAN: Diagnoses and all orders for this visit: Paroxysmal SVT (supraventricular tachycardia) ([facility]/HCC) Essential hypertension Encounter for loop recorder check Atrial tachycardia ([facility]) SVT (supraventricular tachycardia) ([facility]) -Long RP tachycardia, likely atrial tachycardia -SVT -S/P LOOP implant -COPD -HTN PLAN: -Reviewed her LOOP data. Since last seen, no changes with findings. Occasional tachycardic episodes, AT vs SVT, non sustained. Some readings with noise. No a.fib. Pt remains asymptomatic. -BP controlled -Continue Toprol 37.5mg daily. Follow up in about 6 months (around 11/09/2024). Debra Colvin NP [facility] Cardiovascular Medicine OFFICE VISIT Observed: 05/12/2024 1:40 PM Status: COMPLETED Source: [facility] [id number] Casi Mcdaniels F Date Provider Department Center 05/12/2024 166-DEBRA COLVIN CARD [facility] Family History Problem Relation Age of Onset Dementia Mother Heart attack Father 52 Liver cancer Brother Stroke Brother Family Status - Relation Status Age at Mother Father Brother Level of Service:69962 ME OFFICE/OUTPATIENT ESTABLISHED LOW MDM 20 MIN Reason for Visit and Comments: SVT [Other] ALLERGIES DATE TYPE / CODE NAME / CODE REACTION SEVERITY SOURCE SYSTEMIC/[id number]( SNOMED CT) NO KNOWN ALLERGIES [facility] ENCOUNTERS ADMIT/DISCHARGE ACCOUNT NUMBER ADMITTING ENCOUNTER CLASS LOCATION SOURCE 12/07/2024 [id number] Ambulatory Building:[facility] 11/17/2024/ [id number] Ambulatory Building:[facility] 11/16/2024 [id number] Ambulatory Building:[facility] 10/06/2024 [id number] Ambulatory Building:[facility] 08/28/2024 [id number] Ambulatory Building:[facility] 07/29/2024 [id number] Ambulatory Building:[facility] 07/02/2024 [id number] Ambulatory Building:[facility] 06/24/2024 [id number] Ambulatory Building:[facility] 06/17/2024 [id number] Ambulatory Building:[facility] 05/12/2024/ [id number] Ambulatory Building:[facility] 05/07/2024 [id number] Ambulatory Building:[facility] 04/08/2024 [id number] Ambulatory Building:[facility] 03/26/2024 [id number] Ambulatory Building:[facility] 03/10/2024 [id number] Ambulatory Building:[facility] PAYERS ENCOUNTER GUARANTOR PAYER SUBSCRIBER SOURCE 12/07/2024 Primary Insuranc e:AETNA MEDICARE ADVANTAGEPolicy Number: [id number] Date:2021-07-08 CASI E TABERDOB: [id number], [place] [address] [facility] 11/17/2024 Primary Insuranc e:AETNA MEDICARE ADVANTAGEPolicy Number: [id number] Date:2021-07-08 CASI E TABERDOB: [id number], [place] [address] [facility] 11/16/2024 Primary Insuranc e:AET[employer] MEDICARE ADVANTAGEPolicy Number: [id number] Date:2021-07-08 CASI E TABERDOB: [id number], [place] [address] [facility] 10/06/2024 Primary Insuranc e:AETNA MEDICARE ADVANTAGEPolicy Number: [id number] Date:2021-07-08 CASI E TABERDOB: [id number], [place] [address] [facility] 08/28/2024 Primary Insuranc e:AET[employer] MEDICARE ADVANTAGEPolicy Number: [id number] Date:2021-07-08 CASI E TABERDOB: [id number], [place] [address] [facility] 07/29/2024 Primary Insuranc e:AET[employer] MEDICARE ADVANTAGEPolicy Number: [id number] Date:2021-07-08 CASI E TABERDOB: [id number], [place] [address] [facility] 05/12/2024 Primary Insuranc e:AET[employer] MEDICARE ADVANTAGEPolicy Number: [id number] Date:2021-07-08 CASI E TABERDOB: [id number], [place] [address] [facility] 03/26/2024 Primary Insuranc e:AET[employer] MEDICARE ADVANTAGEPolicy Number: [id number] Date:2021-07-08 CASI E TABERDOB: [id number], [place] [address] [facility]
--- OUTSIDE RECORDS SUMMARY | 2024-12-10 07:44 | XMS_ITS ---
Author Organization [facility] in [place] Address [address] [place] [address] Care Team Providers Care Bicycle Technician Name Role Phone Suzanne Cabral Primary Care Provider Godfrey Bills [phone] REASON FOR VISIT Appointment Reschedule Encounters Encounter Location Date Provider Diagnosis Pulmonary Medicine [place] [address] [place] [address] 12/10/2024 Godfrey Gonzalez Plan Of Treatment No Information Progress Notes * Casi MCDANIELS EDOB: [birth year] (79 yo F)Acc No.[id number]:12/10/2024 Patient: Jasmin RINCONCasi :1945 A ge:79 Y S ex:Female Address:[address], [address], [place], [address] * true * Date: Generated for Printi ng/Faxing/eTransmitting on: 0 01/20/2025 08:41 AM EDT
--- OUTSIDE RECORDS SUMMARY | 2024-12-15 09:00 | XMS_ITS ---
Author Organization The [facility] in [place] Address [address] [place] [address] Care Team Providers Care Damper Fitter Name Role Phone Suzanne Cabral Primary Care Provider Godfrey Bills [phone] REASON FOR VISIT 1YEAR-COPD Encounters Encounter Location Date Provider Diagnosis Pulmonary Medicine [address] [address] 12/15/2024 Godfrey Gonzalez Plan Of Treatment No Information Progress Notes * Casi MCDANIELS EDOB: 8 (79 yo F)Acc No.[id number]:12/15/2024 UNLOCKED PROGRESS NOTE Follow Up Patient: Jasmin RINCON Casi Erin Provider: Stacy Gonzalez DO :1945 A ge:79 Y S ex:Female Date:12/15/2024 Address:[address], [address], [id number] Pcp:Suzanne Cabral Subjective: * Chief Complaints: * 1 . 1YEAR-COPD. * Medical History: Objective: * Vitals: Assessment: Plan: * Treatment: * * Electronic signature of Susan Gonzalez DO on 01/20/2025 at 08:41 AM EDT Sign off status: Pending Visit Status: R /S (Rescheduled) * Provider: Stacy Gonzalez DO Date: 0 12/15/2024 Generated for Heatheri ng/Fayug/eTransmitting on: 0 01/20/2025 08:41 AM EDT
--- OUTSIDE RECORDS SUMMARY | 2024-12-29 11:00 | XMS_ITS ---
Author Organization The [facility] in [place] Address [address] [place] [address] Care Team Providers Care Tick Eradicator Name Role Phone Suzanne Cabral Primary Care Provider Godfrey Bills [phone] Allergies No Known Allergies REASON FOR VISIT 1YEAR-COPD Medications Medication SIG (Take, Route, Frequency, Duration) Notes Start Date End Date Status Metoprolol Succinate ER 25 MG Oral for 30 Days Active Combivent Respimat 20-100 MCG/ACT 1 puff Inhalation every 6 hrs for 90 days Active Albuterol Sulfate HFA 108 (90 Base) MCG/ACT 2 puffs as needed for SOB Inhalation Q4H for 90 days Activ e Social History Tobacco Use: Social History Observation Description Date Details (start date - stop date) Current Smoker NA - NA Tobacco Control (Standard) Question Answer Notes Tobacco use: Current every day smoker Additional Findings: Tobacco user Moderate cigar ette smoker (10-19 cigs/day) Vital Signs Weight 117.0 lbs 12/29/2024 Height 60 in 12/29/2024 Blood pressure systolic 112 mm Hg 12/30/19 25 Blood pressure diastolic 69 mm Hg 025 Temperature 97.0 degrees Fahrenheit 12/30/19 25 Heart Rate 85 /min 12/29/2024 Respiratory Rate 18 /min 12/29/2024 BMI 22.85 kg/m2 12/29/2024 Oximetry 92 % 12/29/2024 Encounters Encounter Location Date Provider Diagnosis Pulmonary Medicine [place] [address] [place] [address] 12/29/2024 Godfrey Gonzalez Centrilobular emphys angeline J43.2 ; Multiple pulmonary nodules R91.8 and Cigarette nicotine dependence with nicotine-induced disorder F17.219 Assessments Encounter Date Diagnosis (ICD Code) Assessment Notes Treatment Notes Treatment Clinical Notes Section Notes 12/29/2024 Centrilobular emphysema (ICD-10 - J43.2) Prior treatment: Tudorza (no benefit), Stiolto ( jitters ), Advair (never picked it up) States she currently is using albuterol once every 3 days. Breathing seems to be worsening, due in part to continued tobacco abuse. Unlikely to improve until she stops. She refused a maintenance inhaler again today. 12/29/2024 Multiple pulmonary nodules (ICD-10 - R91.8) New RUL tree-in-bud/GGO on LDCT 12/23/2024 compared to 12/10/2023 - personally reviewed with patient imaging [id number]. Etiology unclear - suspect inflammatory, infectious more than neoplasm, but she is high risk given extensive smoking history. She does not recall any significant respiratory illness over the past year. The patient denies any decreased appetite or unexplained weight loss, excessive night sweats, fevers, or hemoptysis. Recommended F/U is 3-6 months. Explained to the patient the impending closure of [facility] Pulmonology practice. Several options were reviewed with her including establishing with another emergency room clerk or re-establishing with me at a new practice. Plan for now is to order a CT chest w/o contrast due April 2025 (4 month F/U) and see her after that. 12/29/2024 Cigarette nicotine dependence with nicotine-induced disorder (ICD-10 - F17.219) Discussed smoking cessation for 3 minutes. Previously wanted to quit, had success in past for ~3 months, but did not express any desire at this tmie. 12/29/2024 Other Low-dose CT (LDCT) was recommended for lung cancer screening. The patient meets criteria including age 50-77, a smoking history of at least 20 pack-years, is currently smoking or has ceased smoking within the past 15 years, and has no signs or symptoms of lung cancer. Shared decision making performed with the patient. After LDCT has been completed, will review report and/or imaging and provide appropriate recommendations for the patient, including additional follow up if needed. Patient was counseled on smoking cessation/continued tobacco abstinence. Plan Of Treatment Medication Medication Name Sig Start Date Stop Date Notes Combivent Respimat 20-100 MCG/ACT 1 puff Inhalation every 6 hrs for 90 days Albuterol Sulfate HFA 108 (9 0 Base) MCG/ACT 2 puffs as needed for SOB Inhalation Q4H for 90 days Treatment Notes Assessment Notes Centrilobular emphysema Prior treatment: Tudorza (no benefit), Stiolto ( jitters ), Advair (never picked it up) States she currently is using albuterol once every 3 days. Breathing seems to be worsening, due in part to continued tobacco abuse. Unlikely to improve until she stops. She refused a maintenance inhaler again today. Multiple pulmonary nodules New RUL tree-in-bud/GGO on LDCT 12/23/2024 compared to 12/10/2023 - personally reviewed with patient imaging [id number]. Etiology unclear - suspect inflammatory, infectious more than neoplasm, but she is high risk given extensive smoking history. She does not recall any significant respiratory illness over the past year. The patient denies any decreased appetite or unexplained weight loss, excessive night sweats, fevers, or hemoptysis. Recommended F/U is 3-6 months. Explained to the patient the impending closure of [facility] Pulmonology practice. Several options were reviewed with her including establishing with another emergency room clerk or re-establishing with me at a new practice. Plan for now is to order a CT chest w/o contrast due April 2025 (4 month F/U) and see her after that. Cigarette nicotine dependenc e with nicotine-induced disorder Discussed smoking cessation for 3 minutes. Previously wanted to quit, had success in past for ~3 months, but did not express any desire at this ie. Other Low-dose CT (LDCT) was recommended for lung cancer screening. The patient meets criteria including age 50-77, a smoking history of at least 20 pack-years, is currently smoking or has ceased smoking within the past 15 years, and has no signs or symptoms of lung cancer. Shared decision making performed with the patient. After LDCT has been completed, will review report and/or imaging and provide appropriate recommendations for the patient, including additional follow up if needed. Patient was counseled on smoking cessation/continued tobacco abstinence. Future Test Test Name Order Date CT Chest w/o contrast 04/21/2025 Next Appt Details Follow Up: 4 Months, Reason: Abnormal CT chest, COPD Procedure Notes * Category Sub-Category Detail Notes PFT Data: 09/10/2017-FEV1/FVC: 54% -FEV1: 30% -FVC: 42% -Bronchodilator response: None -RV: 172% -T% -DLCO: 60% -Flow-volume loop: Very severe obstruction Alpha-1 Antitrypsin Screening Date: / Genotype: 11/29/2020 Progress Notes * ARSLANCasi EDOB: 8 (79 yo F)Acc No.[id number]:12/29/2024 Follow Up Patient: Casi CRUZ Provider: Stacy Gonzalez DO :1945 A ge:79 Y S ex:Female Date:12/29/2024 Address:[address] [place] [address], [id number] Pcp:Suzanne Cabral Check In:02:46 PM ESTCheck O ut:03:23 PM EST Subjective: * Chief Complaints: * 1 YEAR-COPD * HPI: G eneral: Patient states her breathing is doing about the same, if not slightly worse. Complains of dyspnea. Using albuterol about once every 3 days. Does not feel it is severe enough to start something on a daily basis. LDCT was done 12/23/2024 - personally reviewed report and imaging with patient. When compared to prior CT chest 12/11/2023, there is a new RUL (posterior lateral base) GGO/tree-in-bud area. She denies any recent illnesses, colds, bronchitis, pneumonia, etc. The patient denies any decreased appetite or unexplained weight loss, excessive night sweats, fevers, or hemoptysis. MA Intake Comments:. Patient presents for a follow up for COPD. Patient complains of SOB with exertion but states otherwise her breathing is unchanged since her last visit with our office. Patient admits to smoking daily. Patient reports rare albuterol use. Patient had a LDCT performed on 12/23/2024. Patient is under the care of [facility] Cardiology. * ROS: G eneral/Constitutional: Fever or sweats d enies. C hange of appetite d enies. C hills d enies. W eight Change d enies. H EENT: Dry mouth d enies. S ore throat d enies. O ral Ulcers d enies. P ost Nasal Drip D enies. C ongestion D enies. H oarseness?Denies. C ardiovascular: Tachycardia d enies. C hest pain d enies. P alpitations d enies. R espiratory: Chest tightness d enies. P leurisy D enies. D yspnea a dmits. C ough a dmits. H emoptysis d enies. W heezing d enies. G astrointestinal: Acid Reflux/GERD/Heartburn d enies. D ysphagia d enies. M usculoskeletal: Arthralgias/joint pain D enies. S kin: Easy bruising d enies. R shabnam d enies. ? N eurologic: Seizures d enies. T remor d enies. H ematology: Abnormal Bleeding d enies. P sychiatric: Anxiety d enies. * Active Problem List J43.2 Centrilobular emphys angeline Modified On:06/19/2023W/U Status:confirmed J96.11 Chronic respiratory failure with hypoxia Modified On:06/19/2023/U Status:confirmed F17.219 Cigarette nicotine d ependence with nicotine-induced disorder Modified On:06/19/2023/U Status:confirmed R91.8 Multiple pulmonary n odules Modified On:06/19/2023/U Status:confirmed J44.1 COPD exacerbation Modified On:07/23/2023W/U Status:confirmed * Medical History: * Surgical History: t onsillectomy tubal ligation throat surgery Loop Recorder Implant 02/19/2023 * Hospitalization/Major Diagno stic Procedure: C OPD Exacerbation-TBH 2COPD Exacerbation-TBH 3COPD Exacerbation-TBH 10/22/2023 * Family History: F ather: acute myocardial infarction, diagnosed with Unspecified heart disease. B rother(s): liver cancer, diagnosed with Other malignant neoplasm of unspecified site. M other: diagnosed with Unspecified heart disease. * Social History: T obacco Use: T obacco Control (Standard) T obacco use: C urrent every day smoker A dditional Findings: Tobacco user M oderate cigarette smoker (10-19 cigs/day) Electronic Cigarette use C urrent user N o LM: Additional Tobacco Questions N umber of Years Pt Smoked: 4 3 N umber of Packs per Day: 1 M iscellaneous: O ccupation O ccupation: R TweetMeme Pets: none. D rugs/Alcohol: D rugs H ave you used drugs other than those for medical reasons in the past 12 months? N o D oes the Patient have a History of Drug Abuse in the Past? N o Caffeine I ntake: O ccasionally Pepsi Do you drink alcohol?: No. Do you smoke marijuana?: Denies. * Medications: T akingAlbuterol Sulfate HFA 108 (90 Base) MCG/ACT Aerosol Solution 2 puffs as needed for SOB Inhalation Q4H Metoprolol Succinate ER 25 MG Tablet Extended Release 24 Hour Oral Taking Albuterol Sulfate HFA 108 (90 Base) MCG/ACT Aerosol Solution 2 puffs as needed for SOB Inhalation Q4H Taking Metoprolol Succinate ER 25 MG Tablet Extended Release 24 Hour Oral Not-Taking/PRNCombivent Respimat(Ipratropium-Albuterol) 20- 100 MCG/ACT Aerosol Solution 1 puff Inhalation every 6 hrs Medication List reviewed and reconciled with the patientNot-Taking/PRN Combivent Respimat(Ipratropium- Albuterol) 20-100 MCG/ACT Aerosol Solution 1 puff Inhalation every 6 hrs Medication List reviewed and reconciled with the patient * Allergies: N .K.D.A.no[Allergies Verified] Objective: * Vitals: W t:117.0lbs, Ht: 60 in, BP:sittin/69mm Hg, Temp:Forehead:97.0F, HR:85/min, RR:18/min, BMI:22.85Index, Oxygen sat %:Room Air:92%, Ht-cm: 152.4 cm, Wt-k.07 kg. * Examination: E xam: GENERAL APPEARANCE: A ppears stated age. Skin N ormal. Trachea M idline. Chest N ormal. Respiratory Normal M ovements, E ffort N ormal. Auscultation D iminished but clear. Cardiac R egular rate and rhythm. Gastrointestinal N ormal. Vascular N o edema. Musculoskeletal N ormal posture. Neurological F ocal, intact. Psychiatric F lat affect. Mentation/Cognition N ormal. Assessment: * Assessment: 1. C entrilobular emphysema - J43.2 (Primary) 2 . M ultiple pulmonary nodules - R91.8 3 . C igarette nicotine dependence with nicotine-induced disorder - F17.219 Plan: * Treatment: 2. M ultiple pulmonary nodules I maging: CT Chest w/o contrast (Ordered for 04/21/2025) Notes: New RUL tree-in-bud/GGO on LDCT 12/23/2024 compared to 12/10/2023 - personally reviewed with patient imaging [id number]. Etiology unclear - suspect inflammatory, infectious more than neoplasm, but sheis high risk given extensive smoking history. She does not recall any significant respiratory illness over the past year. The patient denies any decreased appetite or unexplained weight loss, excessive night sweats, fevers, or hemoptysis. Recommended F/U is 3-6 months. Explained to the patient the impending closure of [facility] Pulmonology practice. Several options were reviewed with her including establishing with another emergency room clerk or re-establishing with me at a new practice. Plan for now is to order a CT chest w/o contrast due April 2025 (4 month F/U) and see her after that. ??3.?Cigarette nicotine dependence with nicotine-induced disorder? Notes: Discussed smoking cessation for 3 minutes. Previously wanted to quit, had success in past for ~3 months, but did not express any desire at this tmie.?? 4.?Others? Notes: Low-dose CT (LDCT) was recommended for lung cancer screening. The patient meets criteria including age 50-77, a smoking history of at least 20 pack-years, is currently smoking or has ceased smoking within the past 15 years, and has no signs or symptoms of lung cancer. Shared decision making performed with the patient. After LDCT has been completed, will review report and/or imaging and provide appropriate recommendations for the patient, including additional follow up if needed. Patient was counseled on smoking cessation/continued tobacco abstinence.?? * Procedures: A lpha-1 Antitrypsin: Screening Date: . Genotype: 0 11/29/2020 . P FT: Data: 09/10/2017 -FEV1/FVC: 54% -FEV1: 30% -FVC: 42% -Bronchodilator response: None -RV: 172% -T% -DLCO: 60% -Flow-volume loop: Very severe obstruction . * Procedure Codes: * Preventive Medicine: COVID Vaccination: H as patient had COVID Vaccination? COVID Vaccination Y es 06/19/2024 Immunization Status: P neumovacc P lasvsr17-52/24/2024. I nfluenza 0 03/31/2024. Screenings/Counseling: F ALL RISK SCREENING Fall Risk Assessment: N o falls in the past year Are you afraid of falling? N o T OBACCO ACTION PLAN Patient counselled on the dangers of tobacco use and urged to quit. 0 12/29/2024 Cessation counseling provided 0 12/29/2024 R SV-06/21/2023. * Follow Up: 4 Months (Reason: Abnormal CT chest, COPD) * * Sign off status: Completed Visit Status: C HK (Check Out) true * Provider: Stacy Gonzalez DO Date: 0 12/29/2024 Generated for Serina restrepo/Rick/Emeritaitting on: 0 01/20/2025 08:41 AM EDT History and Physical Notes * HPI (History of Present Illness) Category Sub-Category Detail Notes Category Not es General Patient present s for a follow up for COPD. Patient complains of SOB with exertion but states otherwise her breathing is unchanged since her last visit with our office. Patient admits to smoking daily. Patient reports rare albuterol use. Patient had a LDCT performed on 12/23/2024. Patient is under the care of [facility] Cardiology. Examination Category Sub-Category Detail Notes Category Not es Exam GENERAL APPEARANCE: Appears stated age Skin Normal Trachea Midline Chest Normal Respiratory Normal Movements, Ef fort Normal Auscultation Diminished but clear Cardiac Regular rate and rhy thm Gastrointestinal Normal Vascular No edema Musculoskeletal Normal posture Neurological Focal, intact Psychiatric Flat affect Mentation/Cognition Normal
[2025-01-12 12:19] VITALS: BP 141/97; PULSE 94; TEMP 36.2; O2SAT 95
[2025-01-12] MEDS: AMOXICILLIN 500 MG CAPSULE 1000 MG PO (12:21)
--- NOTE | 2025-01-12 12:55 | PC.NURSE ---
Patients case was cancelled. Dr. Coyle's office had the [employer] field support representative come and make adjustments to the settings on the device instead of the invasive procedure. Patient voiced no complaints or concerns with change in plan.
--- OUTSIDE RECORDS SUMMARY | 2025-01-20 08:41 | XMS_ITS | Patient Health Record ---
Author Organization [facility] [place] Address [address] [place] [address] Care Team Providers Care Budget Assistant Name Role Phone Suzanne Cabral Primary Care Provider Arnie [facility] [phone] Allergies No Known Allergies Results Component Value Reference Range Notes CT Chest Low Dose for Screen ing* Reviewed date:12/23/2024 11:35:56 AM Interpretation: Performing Lab: Notes/Report: CT lung screening low-dose Reviewed date:12/23/2024 01:41:37 PM Interpretation: Performing Lab: Notes/Report: Source Facility: [place] [address] CT Scan Report Signed Patient: CASI MCDANIELS MR#: [id number] : 1945 Acct:[id number] Age/Sex: 79 / F ADM Date: 12/23/24 Loc: CT Attending Dr: Arnie Jacobs D.O. Ordering Physician: Arnie Jacobs D.O. Date of Service: 12/23/24 Procedure(s): CT lung screening low-dose Accession Number(s): [id number] cc: Suzanne Cabral M.D. [place] [id number] Patient Name: CASI MCDANIELS MRN: [id number] date: 1945 Sex: F Assigned Patient Location: CT Current Patient Location: CT Accession/Order Number: [id number] Exam Date: 12/23/2024 10:38 Report Date: 12/23/2024 11:04 At the request of: ARNIE JACOBS DO Procedure: CT lung screening low-dose LOW-DOSE SCREENING CHEST CT WITHOUT CONTRAST COMPARISON: 12/11/2023 and 06/13/2023 CLINICAL DATA: Current smoker for approximately 60 years. Emphysema. Spiral axial unenhanced low-dose images were obtained through the chest. Images were reviewed using both narrow and wide window settings. This CT exam was performed using one or more following dose reduction techniques: Automated exposure control, adjustment of the mA and/or kV according to patient size, or use of iterative reconstruction technique. The heart is within normal limits for size. There is a trace amount of pericardial fluid. There is minor coronary artery disease. No aortic aneurysm is seen. There is atherosclerotic plaque at the aortic arch. There are similar small mediastinal lymph nodes. The bony structures are intact. There is obstructive lung disease. Similar areas of scarring are present bilaterally. There is a developing irregular opacity with surrounding tree-in-bud appearance at the basilar, posterior lateral right upper lobe. No other consolidation, pleural effusion or pneumothorax is seen. No other nodularity is identified. Limited imaging through the upper abdomen shows no contributory findings. CT/CT lung screening low-dose IMPRESSION: OBSTRUCTIVE LUNG DISEASE. DEVELOPING IRREGULAR OPACITY WITH SURROUNDING TREE-IN-BUD APPEARANCE AT THE RIGHT LOWER LOBE. PATIENT HAS SHOWN SIMILAR FINDINGS AT DIFFERENT AREAS ON PREVIOUS EXAMS. AN INFECTIOUS OR INFLAMMATORY PROCESS IS FAVORED. CLINICAL FOLLOW-UP IS SUGGESTED ALONG WITH REPEAT CT TO ASSESS FOR LEAD LOCATION. Lung RADS category 1S - negative with developing parenchymal changes suspected to be infectious or inflammatory CT follow-up in the next 3-6 months following treatment is suggested. Impression dictated by: Bethany Abreu M.D. 12/23/2024 11:04 AM Dictation Location: [place] [address] Electronically authenticated by: [id number] Y Date: 12/23/2024 11:04 Dictated By: Bethany Abreu M.D. Signed By: 12/23/24 1107 DD/ 1104 TD/TT: Movie Star: [place] [address] CT Scan Report Signed Patient: HARVINDER MCDANIELS MR#: [id number] : 1945 Acct:[id number] Age/Sex: 79 / F ADM Date: 12/23/24 Loc: CT Attending Dr: Arnie Jacobs D.O. Ordering Physician: Arnie Jacobs D.O. Date of Service: 12/23/24 Procedure(s): CT catarino g screening low-dose Accession Number(s): [id number] cc: Suzanne Cabral M.D. [place] [id number] Patient Name: CASI MCDANIELS MRN: [id number] date: 1945 Sex: F Assigned Patient Location: CT Current Patient Location: CT Accession/Order Numb er: [id number] Exam Date: 12/23/2024 10:38 Report Date: 12/23/2024 11:04 At the request of: ARNIE JACOBS DO Procedure: CT lung s creening low-dose LOW-DOSE SCREENING C HEST CT WITHOUT CONTRAST COMPARISON: 12/11/2023 and 06/13/2023 CLINICAL DATA: Curre nt smoker for approximately 60 years. Emphysema. Spiral axial unenhan roslyn low-dose images were obtained through the chest. Images were reviewed using both narrow and wide window settings. This CT exam was performed using one or more following dose reduction techniques: Automated exposure control, ad justment of the mA and/or kV according to patient size, or use of iterative rec onstruction technique. The heart is within normal limits for size. There is a trace amount of pericardial fluid. T here is minor coronary artery disease. No aortic aneurysm is seen. Th ere is atherosclerotic plaque at the aortic arch. There are similar small me diastinal lymph nodes. The bony structures are intact. There is obstructive lung disease. Similar areas of scarring are present bilaterally. There i s a developing irregular opacity with surrounding tree-in-bud appearan ce at the basilar, posterior lateral right upper lobe. No other consolidation, pleural effusion or pneumothorax is seen. No other nodularity is identified. Limited imaging thro ugh the upper abdomen shows no contributory findings. C T/CT lung screening low-dose IMPRESSION: OBSTRUCTIVE LUNG DISEASE. DEVELOPING IRREGULAR OPACITY WITH SURROUNDING TREE-IN-BUD APPEARANCE AT THE RIGHT LOWER LOBE. PA TIENT HAS SHOWN SIMILAR FINDINGS AT DIFFERENT AREAS ON PREVIOUS EXAMS. AN I NFECTIOUS OR INFLAMMATORY PROCESS IS FAVORED. CLINICAL FOLLOW-UP IS SUGGEST ED ALONG WITH REPEAT CT TO ASSESS FOR LEAD LOCATION. Lung RADS category 1 S - negative with developing parenchymal changes suspected to be infectious or inflammatory CT follow-up in the next 3-6 months following treatment is suggested. Impression dictated by: Bethany Abreu M.D. 12/23/2024 11:04 AM Dictation Location: [place] [address] Electronically authe nticated by: [id number] Y Date: 12/23/2024 11:04 Dictated By: Bethany Abreu M.D. Signed By: 12/23/24 1107 DD/ 110 TD/TT: Movie Star: Reason For Referral No Information Medications Medication SIG (Take, Route, Frequency, Duration) Notes Start Date End Date Status Metoprolol Succinate ER 25 MG Oral for 30 Days Active Combivent Respimat 20-100 MCG/ACT 1 puff Inhalation every 6 hrs for 90 days Active Albuterol Sulfate HFA 108 (90 Base) MCG/ACT 2 puffs as needed for SOB Inhalation Q4H for 90 days Activ e Immunizations Vaccine Route Administration Date Status Comme nts Arexvy Unknown 06/21/2023 Administered [employer] Syringe Pre -Filled 30 mcg/0.3 mL Unknown 06/19/2024 Administered Flu, Fluad (30884) 65 yrs + High Dose Seasonal (8619-4565) Unknown 03/31/2024 Administered Flu, Fluad (55741) 65 yrs+, single-dose syringe (7778-2265) Unknown 06/21/2023 Administered Pneumococcal (Pneumovax 23) Unknown 11/14/2021 Administ ered Pneumococcal (Prevnar 20) Unknown 03/31/2024 Administer ed SARS-COV-2 (COVID 19) bivale nt 30 mcg/0.3 ml dose Unknown 05/05/2022 Administered Social History Tobacco Use: Social History Observation Description Date Details (start date - stop date) Current Smoker NA - NA Tobacco Control (Standard) Question Answer Notes Tobacco use: Current every day smoker Additional Findings: Tobacco user Moderate cigar ette smoker (10-19 cigs/day) Problems Problem Type SNOMED Code ICD Code Onset Dates Problem Status W/U Status Risk Notes Problem Centrilobular emphysema (07221104) Centrilobular emphysema (J43.2) Active confirmed Problem Chronic respiratory failure (25962329) Chronic respiratory failure with hypoxia (J96.11) Active confirmed Problem Acute exacerbation of chronic obstructive airways disease (525031593) COPD exacerbation (J44.1) Active confirmed Problem Mental disorder caused by drug (614116903) Cigarette nicotine dependence with nicotine-induced disorder (F17.219) Active confirmed Problem Multiple pulmonary nodules (515775449) Multiple pulmonary nodules (R91.8) Active confirmed Vital Signs Heart Rate 85 /min 12/29/2024 Temperature 97.0 degrees Fahrenheit 12/29/2024 Respiratory Rate 18 /min 12/29/2024 Oximetry 92 % 12/29/2024 Blood pressure diastolic 69 mm Hg 12/29/2024 Height 60 in 12/29/2024 Blood pressure systolic 112 mm Hg 12/29/2024 Weight 117.0 lbs 12/29/2024 BMI 22.85 kg/m2 12/29/2024 Encounters Encounter Location Date Provider Diagnosis [facility] [place] [address] [place] [address] [facility] Centrilobular emphys angeline J43.2 ; Multiple pulmonary nodules R91.8 and Cigarette nicotine dependence with nicotine-induced disorder F17.219 [facility] [address] [place] [address] [facility] Centrilobular emphys angeline J43.2 [facility] [address] [place] [address] 10/19/2024 [facility] [address] [place] [address] [facility] Encounter Date Diagnosis (ICD Code) Assessment [...] 12/10/2023 - personally reviewed with patient imaging [id number]. Etiology unclear - suspect inflammatory, infectious more than neoplasm, but she is high risk given extensive smoking history. She does not recall any significant respiratory illness over the past year. The patient denies any decreased appetite or unexplained weight loss, excessive night sweats, fevers, or hemoptysis. Recommended F/U is 3-6 months. Explained to the patient the impending closure of [facility] Pulmonology practice. Several options were reviewed with her including establishing with another apron operator or re-establishing with me at a new practice. Plan for now is to order a CT chest w/o contrast due April 2025 (4 month F/U) and see her after that. 08/24/2024 Centrilobular emphysema (ICD-10 - J43.2) 12/29/2024 Cigarette nicotine dependence with nicotine-induced disorder [...] smoking cessation/continued tobacco abstinence. Plan Of Treatment No Information Insurance Providers Payer Name Payer Address Payer Phone Subscriber Number Group Number Insured Name Patient Relationship to Insured Coverage Start Date Coverage End Date [employer] MEDICARE [address] [place], [place] [id number] Casi Mcdaniels Self - patient is the insured 2 Medical (General) History Medical History History ICD Code Centrilobular emphysema J43.2 Cigarette nicotine dependence with nicot ine-induced disorder F17.219 Chronic respiratory failure with hypoxia J96.11 Multiple pulmonary nodules R91.8 RLS (restless legs syndrome) G25.81 Supraventricular tachycardia, unspecifie d I47.10 Tricuspid regurgitation I07.1 Surgical History Surgery Date(Month/Year) Loop Recorder Implant 02/19/2023 tonsillectomy tubal ligation throat surgery Hospitalization History Reason Date(Month/Year) COPD Exacerbation-[facility] 07/07/2022 COPD Exacerbation-[facility] 10/22/2023 COPD Exacerbation-[facility] 05/20/2023
--- OUTSIDE RECORDS SUMMARY | 2025-01-20 08:41 | XMS_ITS | Clinical Summary ---
Author Organization [facility] Healthcare Address [address] [facility] [place] [address] Care Team Providers Care Director Auto Name Role Phone Unavailable Primary Care Provider [...]
--- OUTSIDE RECORDS SUMMARY | 2025-01-20 08:41 | XMS_ITS | Encounter Summary ---
Author Organization [facility] Address [address] [facility] [address] Care Team Providers Care Doll Eye Setter Name Role Phone Suzanne Cabral MD Primary Care Provider [phone] Reason for Visit * Reason Comments Med Refill Encounter Details Date Type Department Care Team ([facility] st Contact Info) Description 01/10/2025 Refill [facility] Heart at [facility] [address] [place] [address] Ellie Kay, JUNIOR TECHNICAL WRITER [address] [place] [phone] Tachycardia Social History Tobacco Use Types Packs/Day Years Used Date Smoking Tobacco: Every Day Cigarettes Smokeless Tobacco: Never Alcohol Use Standard Drinks/Week Comments Not Currently 0 (1 standard drink = 0.6 oz pur e alcohol) once per month [place] Safety & Environment Answer Date Rec orded Fear of Current or Ex-Partner Not on file Emotionally Abused Not on file 08/29/2023 Physically Abused Not on file 08/29/2023 Sexually Abused Not on file 08/29/2023 Physically or Sexually Abused Not on file Comments Unknown Sex and Gender Information Value Date Recorded Sex Assigned at Not on file Legal Sex Female 1:05 PM EDT Gender Identity Not on file Sexual Orientation Not on file documented as of this encounter Plan of Treatment Not on file documented as of this encounter Visit Diagnoses Diagnosis Tachycardia Unspecified tachycardia documented in this encounter Care Teams Doll Eye Setter Relationship Specialty Start Date End Date Suzanne Cabral MD [address] [facility] [address] PCP - General 11/05/22 documented as of this encounter
--- OUTSIDE RECORDS SUMMARY | 2025-01-20 08:41 | XMS_ITS | Encounter Summary ---
Author Organization [facility] Address [address] [place] [address] Care Team Providers Care Stitch Bonder Machine Operator Helper Name Role Phone Suzanne Cabral MD Primary Care Provider Encounter Details Date Type Department Care Team (Late st Contact Info) Description 10/22/2024 Orders Only [facility] [address] [place] [address] Fei Zuñiga MD [address] [place] [address] Social History Tobacco Use Types Packs/Day Years Used Date Smoking Tobacco: Every Day Cigarettes Smokeless Tobacco: Never Alcohol Use Standard Drinks/Week Comments Not Currently 0 (1 standard drink = 0.6 oz pur e alcohol) [place] Safety & Environment Answer Date Rec [...] on file documented as of this encounter Procedures Procedure Name Priority Date/Time Associated Diagnosis Comments CARDIAC DEVICE CHECK - REMOTE - LOOP RECORDER (ILR) Routine 10/22/2024 12:00 AM EDT documented in this encounter Results * Cardiac device check - Remote loop recorder (ILR) (10/22/2024 12:00 AM EDT) Anatomical Region Laterality Modality Other 10/22/2024 Fei Zuñiga MD CV IMPLANTABLE CARDIAC DEVICE PROCEDURES Final Result documented in this encounter Visit Diagnoses Not on filedocumented in this encounter Care Teams Stitch Bonder Machine Operator Helper Relationship Specialty Start Date End Date Suzanne Cabral MD [address] [facility] #A PCP - General 11/05/22 documented as of this encounter
--- OUTSIDE RECORDS SUMMARY | 2025-01-20 08:41 | XMS_ITS | Encounter Summary ---
Author Organization [facility] Address [address] [place] [address] Care Team Providers Care Geophysical Laboratory Director Name Role Phone Suzanne Cabral MD Primary Care Provider [phone] Reason for Visit * Reason Comments Med Change Request Encounter Details Date Type Department Care Team ([facility] st Contact Info) Description 08/31/2023 Refill [facility] Heart at [facility] [address] [place] [address] Ranjith Hurst MD [address] [place] [address] Tachycardia Social History Tobacco Use Types Packs/Day [...] tachycardia documented in this encounter Care Teams Geophysical Laboratory Director Relationship Specialty Start Date End Date Suzanne Cabral MD [address] [facility] #A PCP - General 11/05/22 documented as of this encounter
--- OUTSIDE RECORDS SUMMARY | 2025-01-20 08:41 | XMS_ITS | Encounter Summary ---
Author Organization [facility] Address [address] [place] [address] Care Team Providers Care Quality Specialist Name Role Phone Suzanne Cabral MD Primary Care Provider [phone] Encounter Details Date Type Department Care Team (Late st Contact Info) Description 11/25/2024 Orders Only [facility] [address] [place] [address] Farshad Coyle MD [address] [place] [address] Social History Tobacco Use Types [...] - REMOTE - LOOP RECORDER (ILR) Routine 11/25/2024 12:00 AM EDT documented in this encounter Results * Cardiac device check - Remote loop recorder (ILR) (11/25/2024 12:00 AM EDT) Anatomical Region Laterality Modality Other 11/25/2024 us Farshad Coyle MD CV IMPLANTABLE CARDIAC DEVICE IN OCEDURES Final Result documented in this encounter Visit Diagnoses Not on filedocumented in this encounter Care Teams Quality Specialist Relationship Specialty Start Date End Date Suzanne Cabral MD [address] [facility] #A PCP - General 11/05/22 documented as of this encounter
--- OUTSIDE RECORDS SUMMARY | 2025-01-20 08:41 | XMS_ITS | Clinical Summary ---
Author Organization [facility] Address [address] [place] [address] Care Team Providers Care Botany Technician Name Role Phone Suzanne Cabral MD Primary Care Provider [phone] Allergies No known active allergies Medications albuterol 90 mcg/actuation inhaler INHALE 2 PUFFS BY MOUTH EVERY 4 HOURS IF NEEDED FOR SHORTNESS OF BREATH 10/04/19 23 Active aspirin 81 mg EC tablet Take 81 mg by mouth in the morning. Active metoprolol succinate XL (Toprol-XL) 25 mg 24 hr tabletIndicati ons:Tachycardi a TAKE 1 AND 1/2 TABLETS BY MOUTH EVERY MORNING 135 tablet 3 01/12/20 25 Active metoprolol succinate XL (Toprol-XL) 25 mg 24 hr tabletIndicati ons:Tachycardi a Take 1.5 tablets (37.5 mg) by mouth in the morning. 135 tablet 3 11/15/19 24 025 Discontinued Active Problems Problem Noted Date Diagnosed Date COPD (chronic obstructive pulmonary disease) 11/2023 Pneumonia 05/12/2024 Paroxysmal SVT (supraventricular tachycardia) Encounter for loop recorder check 03/12/2023 Tachycardia Essential hypertension Encounters Date Type Department Care Team Description 01/10/2025 Refill [facility] [address] [place] [address] Ellie Kay CNP Tachycardia 01/05/2025 Orders Only [facility] [address] [place] [address] Emely Castellanos MA Paroxysmal supraventricular tachycardia (Primary Dx) 12/02/2024 12:05 PM EDT Ancillary Procedure [facility] [address] [place] [address] Awareness of heartbeats 11/25/2024 Orders Only [facility] [address] [place] [address] Farshad Coyle MD 11/17/2024 1:00 PM EDT Office Visit [facility] Heart at [facility] [address] [place] [facility] [place] [address] Farshad Coyle MD Chronic obstructive pulmonary disease, unspecified COPD type (CMS/HCC) (Primary Dx) 10/28/2024 9:15 AM EDT Ancillary Procedure [facility] [address] [place] [address] Awareness of heartbeats 10/22/2024 Orders Only [facility] [address] [place] [address] Fei Zuñiga MD from Last 3 Months Family History Medical History Relation Name Comments Liver cancer Brother Stroke Brother Heart attack Father Dementia Mother Relation Name Status Comments Brother Father Mother Social History Tobacco Use Types Packs/Day Years Used Date Smoking Tobacco: Every Day Cigarettes Smokeless Tobacco: Never Tobacco Cessation:Ready to Q uit: Not Asked; Counseling Given: Not Answered Alcohol Use Standard Drinks/Week Comments Not Currently 0 (1 standard drink = 0.6 oz pur e alcohol) once per month [place] Safety & Environment Answer Date Rec orded [...] on file Sexual Orientation Not on file Last Filed Vital Signs Vital Sign Reading Time Taken Comments Blood Pressure 122/77 11/17/2024 12:56 PM EDT Pulse 86 11/17/2024 12:56 PM EDT Temperature - - Respiratory Rate 11 05/10/2023 12:52 PM EDT Oxygen Saturation 95% 11/17/2024 12:56 PM EDT Inhaled Oxygen Concentration - - Weight 53.1 kg (117 lb) 11/17/2024 12:56 PM EDT Height 149.9 cm (4' 11 ) 11/17/2024 12:56 PM EDT Body Mass Index 23.63 11/17/2024 12:56 PM EDT Plan of Treatment Health Maintenance Due Date Last Done Comments Medicare Annual Wellness (AWV) 1945 Depression Screening 1957 Adult Tetanus 11/05/1969 Zoster Vaccines (1 of 2) 11/05/1997 Fall Risk Screening 11/05/2012 COVID-19 Vaccine ( season) 2024 06/19/2024, 05/05/2022, 10/19/2021, Additional history exists Influenza Vaccine (#1) 2025 03/31/2024, 2022 Pneumococcal Vaccine: 50+ Years Completed 03/31/2024, 11/14/2021, 03/27/2017 HIB Vaccines Aged Out No longer eligi ble based on patient's age to complete this topic HPV Vaccines Aged Out No longer eligi ble based on patient's age to complete this topic IPV Vaccines Aged Out No longer eligi ble based on patient's age to complete this topic Meningococcal B Vaccine Aged Out No l onger eligible based on patient's age to complete this topic Meningococcal Vaccine Aged Out No jaja sky eligible based on patient's age to complete this topic Rotavirus Vaccines Aged Out No longer eligible based on patient's age to complete this topic Procedures Procedure Name Priority Date/Time Associated Diagnosis Comments CARDIAC DEVICE CHECK CHECK - REMOTE Routine 12/07/2024 3:42 PM EDT Awareness of heartbeats CARDIAC DEVICE CHECK - REMOTE - LOOP RECORDER (ILR) Routine 11/25/2024 12:00 AM EDT CARDIAC DEVICE CHECK CHECK - REMOTE Routine 11/16/2024 2:33 PM EDT Awareness of heartbeats CARDIAC DEVICE CHECK - REMOTE - LOOP RECORDER (ILR) Routine 10/22/2024 12:00 AM EDT from Last 3 Months Results * CARDIAC DEVICE CHECK - REMOTE - LOOP RECORDER (ILR) (12/07/2024 3:42 PM EDT) Only the most recent of2 resultswithin the time period is included. Farshad Coyle MD CV IMPLANTABLE CARDIAC DEVICE TN OCEDURES Final Result CPACS * Cardiac device check - Remote loop recorder (ILR) (11/25/2024 12:00 AM EDT) Only the most recent of2 resultswithin the time period is included. Anatomical Region Laterality Modality Other 11/25/2024 Farshad Coyle MD CV IMPLANTABLE CARDIAC DEVICE [place] OCEDURES Final Result from Last 3 Months Insurance [employer] MEDICARE ADVANTAGE Care Teams Botany Technician Relationship Specialty Start Date End Date Suzanne Cabral MD [address] [facility]A PCP - General 11/05/22
== END | disposition home or self-care (01) ==
PROVIDERS: PCP Family Medicine; Visit Provider Internal Medicine Cardiovascular Disease
DX: I47.19 Other supraventricular tachycardia (principal); Z53.8 Procedure and treatment not carried out for other reasons
CPT/HCPCS: 33285